=== PATIENT | male | born 1955 | race Caucasian/White ===

== ENCOUNTER 2018-06-30 11:10 | Outpatient (CLI) | payer MEDICARE ==
--- NOTE | 2018-06-30 13:48 | RAD ---
TWO VIEWS OF THE THORACIC SPINE: DATE: 06/30/18. COMPARISON: None. HISTORY: Assess for metallic foreign body. FINDINGS: The mid and lower thoracic spine as well as the upper lumbar spine regions are assessed with frontal and lateral imaging. No metallic foreign body is seen from the level of the L4 vertebral body throug h the level of the T4 vertebral body. There is multilevel degenerative change noted. IMPRESSION: No metallic foreign body is seen within the region of the mid and distal thoracic spine. POS: MATTIE
--- NOTE | 2018-06-30 15:17 | MRI ---
MRI OF LEFT ELBOW PERFORMED WITHOUT CONTRAST ENHANCEMENT: History Left elbow pain since a fall in early June. The triceps tendon is intact. There is a high-grade non-retracted tear of the biceps tendon. The distal biceps tendon has a bifurc ated appearance. The long head of the biceps tendon distally appears almost completely torn. There are a few short head fibers that still attaching distally. There is no retraction of the tendon and the lacertus fibrosis appears intact. There is some edema change of the radial tuberosity associated with these findings. There is also appearance of tendinopathy changes of the fibers of the long hea d of the biceps. The ulnar collateral ligament is intact. The lateral collateral ligamentous complex appears intact. There is some tendinopathy change of the common extensor tendon. The common flexor tendon appears u nremarkable. There is a small joint effusion. There are some arthritic changes of the elbow. There appears to be a small articular body best seen on axial image 3. It measures 6-7 mm in maximum size. IMPRESSION: 1. Very high-grade essentially complete tear of the biceps tendon. There are a few fibers of the sh ort head that still appear to be intact and perhaps a few fibers of the tendinopathic long head bicep s tendon are still intact. There is no retraction and the lacertus fibrosis appears intact. There a re some edema changes of the radial tuberosity associated with this. 2. Some arthritic changes of the elbow incidentally noted. Small joint effusion and a small articul ar body measuring 6-7 mm. POS: [facility]
== END 2018-06-30 11:11 | disposition home or self-care (01) ==
LOC: SCSMRI 11:10
PROVIDERS: ATTEND Orthopaedic Surgery
DX: M25.522 Pain in left elbow (principal); S46.212A Strain of muscle, fascia and tendon of other parts of biceps, left arm, initial encounter; R60.0 Localized edema; M25.422 Effusion, left elbow
CPT/HCPCS: 72070

== ENCOUNTER 2018-07-25 11:52 | Outpatient (CLI) | payer MEDICARE ==
[2018-07-25 13:15] LABS: Hemoglobin 14.7 g/dL (14.0-18.0); Mean Corpuscular HGB CONC 33.7 g/dL (32.0-36.0); Mean Corpuscular Hemoglobin 35.1 pg (27.0-31.0); Mean Platelet Volume 7.3 fL (7.4-10.4); Platelet Count 144 thou/uL (130-400); RBC Distribution Width 12.9 % (11.5-14.5); Red Blood Cell (RBC) Count 4.19 mill/uL (4.70-6.10); White Blood Cell (WBC) Count 7.2 thou/uL (4.8-10.8)
== END 2018-07-25 11:53 | disposition home or self-care (01) ==
LOC: LABBT 11:52
PROVIDERS: ATTEND Orthopaedic Surgery
DX: Z01.812 Encounter for preprocedural laboratory examination (principal); S46.212A Strain of muscle, fascia and tendon of other parts of biceps, left arm, initial encounter
CPT/HCPCS: 85027

== ENCOUNTER 2018-07-26 07:07 | Day surgery (SDC) | payer MEDICARE ==
[2018-07-25 12:13] VITALS: BMI 27.8
[2018-07-26] MEDS ORDERED: Lidocaine 1% (PF) 30 ML VIAL ONE (07:58)
[2018-07-26] MEDS ORDERED: Fentanyl 100 MCG/2 ML VIAL ONE ×2 (08:10→11:47)
[2018-07-26] MEDS ORDERED: Midazolam HCl 2 mg/2 ml Vial ONE ×2 (08:10→08:56)
[2018-07-26] MEDS ORDERED: Clindamycin/D5W 900 mg/50 ml Premix Bag ONE (08:22)
[2018-07-26] MEDS ORDERED: Levofloxacin 500 mg/D5W 100 ml Premix Bag ONE (08:22)
[2018-07-26] MEDS ORDERED: Lidocaine 1% w/Epinephrine 1:100K 30 ML VIAL ONE (09:45)
--- NOTE | 2018-07-26 12:09 | RAD ---
LEFT FOREARM TWO VIEWS: 07/26/2018 PROVIDED CLINICAL HISTORY: Biceps repair. FINDINGS: Frontal images of the proximal left forearm demonstrate postoperative changes, compatible with biceps tendon repair, at the level of the radial tuberosity. IMPRESSION: As above. POS: MATTIE
[2018-07-26] MEDS ORDERED: HYDROcodone/Acetaminophen 5/325 mg Tablet ONE (12:35)
--- NOTE | 2018-07-26 13:51 | OP ---
DATE OF PROCEDURE: 07/26/2018 PREOPERATIVE DIAGNOSIS: High grade tear distal biceps. POSTOPERATIVE DIAGNOSIS: High grade tear distal biceps. PROCEDURE PERFORMED: Left distal biceps repair. STAFF: Max Marrero M.D. CAKE FROSTER: None. ANESTHESIA: Roget. The patient received a LMA with 10 mL of 1% lidocaine with epinephrine. ESTIMATED BLOOD LOSS: 10 mL. TOURNIQUET TIME: 49 minutes at 250 mmHg. ANTIBIOTICS: Clindamycin 900, Levaquin 500. IMPLANTS: An [employer] TightRope distal biceps repair kit. COMPLICATIONS: A 1 cm skin tear. HISTORY OF PRESENT ILLNESS: Mr. Castellanos is a 63-year-old male with multiple medical problems to include smoking, visual impairment, COPD. The patient had a left distal biceps rupture while falling. The patient had MRI evidence showing distal biceps tendon rupture. I discussed with him conservative management versus operative intervention. The patient desired for operative intervention. I discussed with him the risks and benefits of surgery to include pain, scar, bleeding, infection, damage to vital structures, decreased range of motion or strength, failure of repair, fracture, need for further surgeries, paresthesias from the lateral antebrachial cutaneous nerve. I discussed with him wound complications and failure of procedure. He understood the risks and benefits and elected to proceed. PROCEDURE IN DETAIL: Timeout was performed designating the patient's left upper extremity as the operative site based on site, consents and markings. After completion of timeout, the patient's left upper extremity was prepped and draped in sterile fashion. Tourniquet was brought up for 49 minutes. I made an incision just off the ulnar border of the brachialis and linearly just right distal flexor crease biceps could be palpated down. I dissected with skin scissors, came upon a vein in the cubital fossa which I cauterized. I then found the brachialis, tracked the biceps down, carried down to Mindy which was going to obstruct our view. Therefore, I tagged, I tied both sides and cauterized and then cut both segments. I came down on the patient's distal biceps. You could see the high grade tear of his biceps. I completed the rupture of the tendon. I then exposed the patient's radial tuberosity. I placed Homans' on both sides exposed the tuberosity. I then went back to the biceps, cleaned it up, used our #2 FiberWire running in a braded fashion [place] stitch from proximal to distal passing with a free needle, the distal ends. I then passed it through our TightRope and moved back to the radial tuberosity. I took x-rays to show position of the tuberosity, drilled bicortically and measured a 7 and took a 7 mm hole, cleaned and washed out the position and passed my TightRope through the opposite cortex, pulled the suture in the tendon to place, placed about 30-40 degrees of flexion, sure that I pulled it into place, passed with a free needle, the suture back through the tendon. I then pulled 1 more time and saw that it was flush within my tendon hole. I then tied the knot and cut after 6/7 passes, I then let the tourniquet down after 49 minutes. I controlled bleeding. There was no excessive bleeding. I then washed, closed with 2-0 Vicryl and 3-0 nylon. There was a noted little small skin tag which was torn, I assume from traction, which we did close with 4 -0 nylon, it was 1 cm in length. We then cleaned the patient's arm up and placed in a soft tissue dressing and sling. The patient will be followed up in 2 weeks. He will move his fingers, remain in the sling until I see him back in 2 weeks, allowing the skin to heal. I am concerned about the patient's skin given bruising already forming just after closure. BRIANA
[2018-07-26] MEDS ORDERED: Lidocaine 1% PF 5 ML VIAL ONE (17:01)
[2018-07-26] MEDS ORDERED: ePHEDrine/0.9% NaCl/PF SYRINGE 50 mg/10 ml ONE (17:01)
[2018-07-26] MEDS ORDERED: PROPOFOL 200 MG/20 ML VIAL ONE (17:01)
[2018-07-26] MEDS ORDERED: Ondansetron HCl/PF 4 MG/2 ML Vial ONE (17:01)
== END 2018-07-26 13:30 | disposition home or self-care (01) ==
LOC: SDC 07:07
PROVIDERS: ATTEND Orthopaedic Surgery
PROC: 0KQ80ZZ Repair Left Upper Arm Muscle, Open Approach (ICD-10-PCS; principal; 2018-07-26)
DX: S46.212A Strain of muscle, fascia and tendon of other parts of biceps, left arm, initial encounter (principal); F17.210 Nicotine dependence, cigarettes, uncomplicated; I25.10 Atherosclerotic heart disease of native coronary artery without angina pectoris; I10 Essential (primary) hypertension; K21.9 Gastro-esophageal reflux disease without esophagitis; J44.9 Chronic obstructive pulmonary disease, unspecified; F10.10 Alcohol abuse, uncomplicated; Z79.82 Long term (current) use of aspirin; Z79.899 Other long term (current) drug therapy; Z88.0 Allergy status to penicillin; Z88.2 Allergy status to sulfonamides; Z88.8 Allergy status to other drugs, medicaments and biological substances; Z95.5 Presence of coronary angioplasty implant and graft; W19.XXXA Unspecified fall, initial encounter
CPT/HCPCS: 76001; 96374; C1713; J1956; J2001; J2250; J2405; J2704; J3010; J3490

== ENCOUNTER 2018-12-19 20:47 | Emergency (ER) | payer MEDICARE | END 2018-12-19 22:22 | disposition left against medical advice (07) | LOC: ERS 20:47 | DX: Z53.21 Procedure and treatment not carried out due to patient leaving prior to being seen by health care provider (principal) ==

== ENCOUNTER 2019-05-30 10:00 | Outpatient (CLI) | payer MEDICARE ==
--- NOTE | 2019-05-30 11:29 | CT ---
EXAM: NONCONTRAST CT PULMONARY LUNG SCAN PROVIDED CLINICAL HISTORY: Nicotine dependence COMPARISON: 06/07/2006 FINDINGS: No pulmonary nodule, mass, or pleural effusion is seen. There is a small approximately 6 mm pulmonary nodule in the posterior aspect distal trachea just abov e the level of the marty which is of uncertain etiology. This could potential representing a tiny nodule. Secretions in this region is a possibility. No additional filling defects or nodules are seen along the course of the trachea or visualized bronchi. Vascular calcifications are seen in the coronary arteries and to a lesser extent involving the thorac ic and visualized upper abdominal aorta. Lack of intravenous contrast limits evaluation of the mediastinal structures, but no enlarged lymph n odes are seen. Visualized upper abdomen demonstrates a grossly normal nonenhanced CT appearance. No lytic or sclerotic osseous lesions are seen. There are mild scattered degenerative changes in the thoracic spine. IMPRESSION: 1. Lung RADS category S - Nodular density seen in the most distal posterior trachea just above the le nurys of the marty measuring 6 mm. A lesion in this region cannot be entirely excluded. Bronchoscopy may be helpful for further evaluation versus short interval follow-up exam. 2. Lung RADS category 1-negative. Continue annual screening with low-dose CT scan thorax in 12 months .
== END 2019-05-30 10:01 | disposition home or self-care (01) ==
LOC: CT 10:00
PROVIDERS: ATTEND Family Medicine
DX: F17.210 Nicotine dependence, cigarettes, uncomplicated (principal)
CPT/HCPCS: G0297

== ENCOUNTER 2019-07-14 08:38 | Outpatient (CLI) | payer MEDICARE ==
--- NOTE | 2019-07-14 11:54 | RAD ---
PA AND LATERAL CHEST: HISTORY: Dyspnea. FINDINGS: Heart size is within normal limits. There are atherosclerotic changes of the aorta. There are radio graphic changes suggesting element of COPD. IMPRESSION: Chronic obstructive pulmonary disease change. Stable exam as compared to a 05/04/2017 study. POS: [facility]
== END 2019-07-14 08:39 | disposition home or self-care (01) ==
LOC: RAD 08:38
PROVIDERS: ATTEND Internal Medicine Critical Care Medicine
DX: R06.00 Dyspnea, unspecified (principal); J44.9 Chronic obstructive pulmonary disease, unspecified
CPT/HCPCS: 71046

== ENCOUNTER 2019-11-27 09:05 | Outpatient (CLI) | payer MEDICARE ==
--- NOTE | 2019-11-27 10:25 | ULT ---
EXAM: US Hepatic Doppler PROVIDED CLINICAL HISTORY: Chronic alcoholic liver disease COMPARISON: None FINDINGS: Proximal abdominal aorta is obscured by bowel gas. The visualized mid abdominal aorta is normal in ca liber with small amount of atherosclerotic plaque present. There is mobile echogenic material seen in the gallbladder lumen suggesting small amount of sludge. N o gallbladder calculus is seen, and there is no gallbladder wall thickening. Common duct is normal in caliber measuring 0.3 cm in diameter. The spleen is normal in size. The liver is enlarged in craniocaudal dimensions measuring approximatel y 19 cm. Visualized portions of the IVC demonstrate a normal sonographic appearance. Hepatic Doppler evaluation with spectral analysis and color flow evaluation: There is normal directional flow seen within the splenic, hepatic, and portal veins. Arterial wavefor ms are documented within the hepatic and splenic arteries. IMPRESSION: 1. Normal directional flow seen within the hepatic, splenic, and portal veins. 2. Liver mildly enlarged measuring 19 cm in craniocaudal dimensions. The spleen is normal in size. 3. Small amount of gallbladder sludge.
== END 2019-11-27 09:06 | disposition home or self-care (01) ==
LOC: SCSULT 09:05
PROVIDERS: ATTEND Internal Medicine Gastroenterology
DX: K70.9 Alcoholic liver disease, unspecified (principal); R94.5 Abnormal results of liver function studies; R63.4 Abnormal weight loss; K82.8 Other specified diseases of gallbladder; R16.0 Hepatomegaly, not elsewhere classified
CPT/HCPCS: 76705

== ENCOUNTER 2020-08-21 15:03 | Outpatient (CLI) | payer MEDICARE ==
[2020-08-21 20:27] LABS: ALT (SGPT) 13 U/L (8-55); AST (SGOT) 17 U/L (5-34); Albumin 4.1 g/dL (3.4-4.8); Alkaline Phosphatase 184 U/L (40-110); Anion Gap 24 mmol/L (10-20); BUN (Urea Nitrogen) 18 mg/dL (8.4-25.7); Bilirubin, Total 0.5 mg/dL (0.2-1.2); Calc. Creatinine Clearance 0 mL/min (70-130); Calcium 9.8 mg/dL (7.8-10.44); Carbon Dioxide 19 mmol/L (23-31); Chloride 96 mmol/L (98-107); Estimated GFR-MDRD 48; Globulin 3.6 g/dL (2.4-3.5); Glucose 104 mg/dL (80-115); Potassium 4.6 mmol/L (3.5-5.1); Protein, Total 7.7 g/dL (5.8-8.1); Sodium 134 mmol/L (136-145)
[2020-08-21 20:30] LABS: #Eosinphils 0.1 10x3/uL (0.0-0.5); #Monocytes 0.7 10x3/uL (0.0-1.1); %Basophils 0.3 % (0.0-2.0); %Eosinophils 0.8 % (0.0-6.0); %Lymphocytes 15.9 % (18.0-47.0); %Monocytes 5.8 % (0.0-10.0); %Neutrophils 76.5 % (40.0-75.0); Hemoglobin 14.3 g/dL (14.0-18.0); Mean Corpuscular HGB CONC 33.8 G/DL (32.0-36.0); Mean Corpuscular Hemoglobin 34.5 PG (27.0-33.0); Mean Corpuscular Volume 101.9 fl (80.0-100.0); Mean Platelet Volume 10.8 fl (7.4-10.4); Platelet Count 348 10x3/uL (130-400); RBC Distribution Width 12.5 % (11.5-14.5); Red Blood Cell (RBC) Count 4.15 10x6/uL (4.40-5.80); White Blood Cell (WBC) Count 11.8 10x3/uL (4.5-11.0)
[2020-08-22 12:12] LABS: SARS-CoV-2 MS2 Positive; SARS-CoV-2 N Gene Negative; SARS-CoV-2 S Gene Negative; SARS-CoV-2 by NAA Not Detected (NotDetected); SARS-CoV-2 orf1ab Negative
== END 2020-08-21 15:04 | disposition home or self-care (01) ==
LOC: LABBT 15:03
PROVIDERS: ATTEND Internal Medicine Cardiovascular Disease
DX: Z01.812 Encounter for preprocedural laboratory examination (principal); Z20.828 Contact with and (suspected) exposure to other viral communicable diseases
CPT/HCPCS: 80053; 85025; U0003; 87635

== ENCOUNTER 2020-08-26 07:07 | Day surgery (SDC) | payer MEDICARE ==
[2020-08-23 12:13] VITALS: BMI 24.0
[2020-08-26] MEDS ORDERED: Midazolam HCl 2 mg/2 ml Vial ONE (11:14)
[2020-08-26] MEDS ORDERED: Fentanyl 100 MCG/2 ML VIAL ONE (11:14)
[2020-08-26] MEDS ORDERED: Heparin 10,000 UNITS/ 10 ML VIAL ONE (11:32)
[2020-08-26] MEDS ORDERED: Iopamidol 370 76% 100 ML VIAL ONE (15:07)
== END 2020-08-26 16:30 | disposition home or self-care (01) ==
LOC: CCL 07:07
PROVIDERS: ATTEND Internal Medicine Cardiovascular Disease
PROC: 4A023N7 Measurement of Cardiac Sampling and Pressure, Left Heart, Percutaneous Approach (ICD-10-PCS; principal; 2020-08-26)
PROC: B2111ZZ Fluoroscopy of Multiple Coronary Arteries using Low Osmolar Contrast (ICD-10-PCS; 2020-08-26)
DX: I25.10 Atherosclerotic heart disease of native coronary artery without angina pectoris (principal); I47.2 Ventricular tachycardia; I25.2 Old myocardial infarction; J44.9 Chronic obstructive pulmonary disease, unspecified; H54.7 Unspecified visual loss; F17.210 Nicotine dependence, cigarettes, uncomplicated; Z79.899 Other long term (current) drug therapy; Z79.82 Long term (current) use of aspirin; Z88.0 Allergy status to penicillin; Z88.2 Allergy status to sulfonamides
CPT/HCPCS: 76942; 85347; 93458; 99152; C1769; J1644; J2250; J3010; Q9967

== ENCOUNTER 2020-09-12 14:38 | Inpatient (IN) | payer MEDICARE ==
[2020-09-12] MEDS ORDERED: Calcium Carbonate 500 MG ChewTAB PO PRN (16:00)
[2020-09-12] MEDS ORDERED: Fleet Enema 133 ML BOT PR PRN (16:00)
[2020-09-12] MEDS ORDERED: Mag-Al 1200 mg/1200 mg/30 ML UDCUP PO PRN (16:00)
[2020-09-12] MEDS ORDERED: Ondansetron PF 4 MG/2 ML Vial SLOW IVP PRN (16:00)
[2020-09-12] MEDS ORDERED: Acetaminophen 325 MG TAB PO PRN (16:00)
[2020-09-12] MEDS ORDERED: HYDROcodone/Acetaminophen 5/325 mg Tablet PO PRN (16:00)
[2020-09-12 17:10] VITALS: BMI 23.7
[2020-09-12] MEDS: Sodium Chloride 0.9% 1,000 ML IV SCH (17:13)
[2020-09-12 23:19] LABS: SARS-CoV-2 MS2 Positive; SARS-CoV-2 N Gene Negative; SARS-CoV-2 S Gene Negative; SARS-CoV-2 by NAA Not Detected (NotDetected); SARS-CoV-2 orf1ab Negative
[2020-09-13] MEDS: Sodium Chloride 0.9% 1,000 ML IV SCH ×3 (01:51→19:56)
[2020-09-13 04:16] LABS: #Eosinphils 0.1 thou/uL (0.0-0.7); #Lymphocytes 1.1 thou/uL (1.20-3.40); #Monocytes 0.9 thou/uL (0.11-0.59); #Neutrophils 9.5 thou/uL (1.40-6.50); %Basophils 0.3 % (0.0-1.0); %Eosinophils 1.1 % (0.0-10.0); %Lymphocytes 9.5 % (21.0-51.0); %Monocytes 7.8 % (0.0-10.0); %Neutrophils 81.3 % (42.0-75.0); Hemoglobin 10.3 g/dL (14.0-18.0); Mean Corpuscular HGB CONC 33.9 g/dL (32.0-36.0); Mean Corpuscular Hemoglobin 35.8 pg (27.0-31.0); Mean Platelet Volume 6.1 fL (7.4-10.4); Platelet Count 207 thou/uL (130-400); RBC Distribution Width 13.6 % (11.5-14.5); Red Blood Cell (RBC) Count 2.88 mill/uL (4.70-6.10); White Blood Cell (WBC) Count 11.7 thou/uL (4.8-10.8)
[2020-09-13 04:39] LABS: ALT (SGPT) 8 U/L (8-55); AST (SGOT) 18 U/L (5-34); Albumin 2.8 g/dL (3.4-4.8); Alkaline Phosphatase 146 U/L (40-110); Anion Gap 11 mmol/L (10-20); BUN (Urea Nitrogen) 7 mg/dL (8.4-25.7); Bilirubin, Total 0.6 mg/dL (0.2-1.2); Calc. Creatinine Clearance 103 mL/min (70-130); Calcium 8.5 mg/dL (7.8-10.44); Carbon Dioxide 24 mmol/L (23-31); Chloride 98 mmol/L (98-107); Glucose 115 mg/dL (80-115); Protein, Total 5.8 g/dL (5.8-8.1); Sodium 129 mmol/L (136-145)
[2020-09-13] MEDS: HYDROcodone/Acetaminophen 5/325 mg Tablet PO PRN ×2 (04:55→19:56)
[2020-09-13] MEDS ORDERED: Midazolam HCl 2 mg/2 ml Vial ONE (08:17)
[2020-09-13] MEDS ORDERED: Heparin 10,000 UNITS/ 10 ML VIAL ONE (08:53)
[2020-09-13] MEDS ORDERED: Fentanyl 100 MCG/2 ML VIAL ONE ×4 (08:54→17:11)
[2020-09-13] MEDS: Oxybutynin ER 5 MG TAB PO SCH (09:00)
[2020-09-13] MEDS: Bupropion 150 MG XL TAB PO SCH (09:00)
[2020-09-13] MEDS: Metoprolol Tartrate 100 MG TAB PO SCH (09:00)
[2020-09-13] MEDS: Aspirin Chewable 81 MG TAB PO SCH (09:00)
[2020-09-13] MEDS ORDERED: Protamine Sulfate 50 MG/5 ML VIAL ONE (09:24)
[2020-09-13] MEDS ORDERED: Dexamethasone 20 MG/5 ML VIAL ONE (10:32)
[2020-09-13] MEDS ORDERED: PHENYLEPHRINE-NS 100 MCG/ML 10 ML SYRINGE ONE (10:32)
[2020-09-13] MEDS ORDERED: Ondansetron PF 4 MG/2 ML Vial ONE (10:32)
[2020-09-13] MEDS ORDERED: PROPOFOL 200 MG/20 ML VIAL ONE (10:32)
[2020-09-13] MEDS ORDERED: Lidocaine 1% PF 5 ML VIAL ONE (10:32)
[2020-09-13] MEDS ORDERED: hydrALAZINE 20 MG/ML VIAL ONE (13:12)
[2020-09-13] MEDS ORDERED: Iopamidol 370 76% 100 ML VIAL ONE (13:35)
[2020-09-13] MEDS ORDERED: Iopamidol 370 76% 50 ML VIAL FS ONE (13:35)
[2020-09-13] MEDS: Fentanyl 100 MCG/2 ML VIAL SLOW IVP PRN ×2 (14:15→15:15)
[2020-09-13] MEDS ORDERED: Bupivacaine 0.25% HCL 30 ML VIAL ONE (15:45)
[2020-09-13] MEDS ORDERED: Lidocaine 1% w/Epinephrine 1:100K 20 ML VIAL ONE ×2 (15:45→17:06)
[2020-09-13] MEDS ORDERED: Bacitracin Zinc Ointment 30 gm TUBE ONE (15:45)
[2020-09-13] MEDS ORDERED: Levofloxacin 500 mg/D5W 100 ml Premix Bag ONE (15:49)
--- NOTE | 2020-09-13 16:15 | EKG ---
Test Reason : POST RUNOFF Blood Pressure : / mmHG Vent. Rate : 068 BPM Atrial Rate : 068 BPM P-R Int : 146 ms QRS Dur : 092 ms QT Int : 412 ms P-R-T Axes : 065 090 057 degrees QTc Int : 438 ms Normal sinus rhythm Rightward axis Borderline ECG No previous ECGs available Confirmed by DR. Jeff HYMAN (3) on 09/13/2020 4:15:21 PM Referred By: GABRIELE Confirmed By:DR. Jeff HYMAN
--- NOTE | 2020-09-13 16:18 | OP ---
DATE OF PROCEDURE: 09/13/2020 PREPROCEDURE DIAGNOSIS: Nonhealing ulcer. POSTPROCEDURE DIAGNOSIS: Severe PVD. PROCEDURES PERFORMED: 1. Aortogram. 2. Bilateral aortofemoral runoff. 3. Successful DESIGN PAINTER only to the proximal to distal region of an occluded SFA. COMPLICATIONS: None. ESTIMATED BLOOD LOSS: Less than 20 mL. DESCRIPTION OF PROCEDURE: The patient was admitted one day prior to the procedure for hydration. The patient was consented for procedure. I discussed the procedure in full detail with Mr. Castellanos. Risks include, but not limited to the following: , stroke, [place], need for emergency surgery, loss of limb, bleeding, infection, as well as reaction to the medication. All questions were answered given the above. The patient agreed to proceed with above procedure. DETAILS: The patient was draped and prepped in sterile fashion. Access was obtained in the left femoral artery under ultrasound guidance. Micropuncture sheath was employed. A 4-Malagasy Contra catheter was used for aortogram and placed into the contralateral segment successfully. FINDINGS: The aorta has no significant stenosis or aneurysm. Right lower extremity - common iliac, external iliac, and common femoral artery have no significant disease. The SFA had a near ostial occlusion. The reconstitutes in the proximal portion of the popliteal artery just past the adductor canal. There appears to be 2-vessel runoff to the foot with significant disease present. Left lower extremity - common iliac, external iliac, common femoral artery have no significant disease. The SFA has less than 50% stenosis with heavy calcification. The 5-Malagasy sheath was exchanged for a 6-Malagasy destination sheath. This was placed in the contralateral segment successfully. A heparin was used for anticoagulation. A Frontrunner device was used initially due to a blunt near ostial occlusion. Surprisingly, this passed successfully with minimal manipulation into the popliteal artery. This was confirmed. A Wholey wire was then exchanged after the removal of the Frontrunner. Wholey wire was placed through the [place] catheter. Multiple inflations with a 4 x 150 mm balloon catheter were performed. There was suboptimal result especially in the proximal region. A 5 x 200 mm balloon catheter was then inflated x2 with much improvement in flow at present. I did want to avoid stent implantation due to the proximity to the ostium of the profunda femoral artery, in addition to low-grade fever of 99.7 as well as poor distal runoff. I did feel the flow present was appropriate. The patient was transferred to PACU in stable condition. Job ID: [id number]
--- NOTE | 2020-09-13 16:19 | CON ---
DATE OF CONSULTATION: REASON FOR CONSULT: Right second toe gangrene. HISTORY OF PRESENT ILLNESS: Mr. Castellanos is a 65-year-old man with pain, swelling, and blackening of his right second toe with a small open wound. He has a history of severe peripheral arterial disease and has undergone angioplasty of both femoral arteries in the past but no longer has any palpable pulses in his feet. Dr. Wong took him to the angio lab today and performed another angioplasty of the right SFA obtaining normal runoff and Doppler signals in his feet. He has requested amputation of the gangrenous draining toe. PAST MEDICAL HISTORY: Coronary artery disease, status post stenting, COPD, hypertension, and peripheral vascular disease. PAST SURGICAL HISTORY: Bilateral angioplasty of the femoral vessels as well as coronary artery stenting. FAMILY HISTORY: Hypertension and gastric cancer. SOCIAL HISTORY: The patient continues to smoke daily. Drinks beer daily as well. No illicit drugs. ALLERGIES: HE REPORTS ALLERGIES TO PENICILLIN AND SULFA. OUTPATIENT MEDICATIONS: Include 1. Oxybutynin. 2. Multivitamin. 3. Prilosec. 4. Metoprolol. 5. Aspirin. 6. Bupropion. REVIEW OF SYSTEMS: 10 system review of systems is negative except per HPI and the following. The patient has chronic pain in his right second toe, which limits his activities. He does not report claudication and he is not very active. No respiratory symptoms, but again is not very active. He does have heaviness in his legs and swelling in the right toe and foot. No fevers or chills. PHYSICAL EXAMINATION: VITAL SIGNS: Per PCU record. GENERAL: Reveals a healthy-appearing man, in no acute distress, who appears older than his stated age. HEENT: Unremarkable. NECK: Supple without lymphadenopathy or thyroid nodules. HEART: Regular in its rate and rhythm without murmurs, rubs, or gallops. LUNGS: Clear to auscultation bilaterally. EXTREMITIES: He has a palpable right femoral pulse. I cannot definitely appreciate a popliteal pulse, but he has signals in both his posterior tibial and dorsalis pedis arteries and fairly brisk capillary refill of his toes. He has two small eschars of his first and third toes and his second toe is gangrenous down to the base. He has some bogginess of the tissues underlying the eschar near the base, although I am unable to express any drainage. He has had drainage from that area in the past. He has some redness of the foot near the base of the toe. No lymphangitic streaking. Mild edema of the right foot. NEUROLOGIC: No focal deficits. PSYCHIATRIC: Alert, oriented and appropriate. ASSESSMENT: Gangrene of the right second toe, status post revascularization. I have recommended right second toe amputation, leaving the wound open for dressing changes. Hopefully, he has adequate circulation to heal this. If he does not appear to be healing, I may get Vascular Surgery involved to see if he is a candidate for surgical bypass, but Dr. Wong felt that given his overall medical state, PTCA even though unlikely to remain patent for long was his best option at this time. The alternative is antibiotics and observation, but he is at risk for sepsis. This does not appear to be typical dry gangrene, although he is not obviously septic at this time. There is some bogginess and drainage from this eschar. He understands and wants to proceed with amputation. He understands that if he does not heal at this level, then a mid foot or even below-knee amputation may be necessary. Certainly, we will get Vascular Surgery involved before proceeding with any of those options however. The inherent risks of surgery were discussed with him and his . These include, but are not limited to, bleeding, infection, risks of anesthesia, failure to heal, and need for other procedures or amputation at a higher level. He understands and accepts these risks. All of his questions were answered and he has been posted for the operating room today. Job ID: [id number]
[2020-09-13] MEDS ORDERED: Promethazine HCl 25 MG/ML VIAL SLOW IVP PRN (17:06)
[2020-09-13] MEDS ORDERED: Ondansetron HCl/PF 4 MG/2 ML Vial IVP PRN (17:06)
[2020-09-13] MEDS ORDERED: Promethazine HCl 25 MG/ML VIAL IM PRN (17:06)
[2020-09-13] MEDS: Clindamycin/D5W 600 MG in Premix Bag 1 BAG IVPB SCH (21:28)
--- NOTE | 2020-09-13 23:43 | OP ---
DATE OF PROCEDURE: 09/13/2020 PROCEDURE PERFORMED: Right second toe ray amputation. PREOPERATIVE DIAGNOSIS: Wet gangrene of the right second toe. POSTOPERATIVE DIAGNOSIS: Wet gangrene of the right second toe. HISTORY OF PRESENT ILLNESS: Mr. Castellanos is a 65-year-old man with long-standing peripheral vascular disease. He presented to Dr. Wong's office with gangrene of the right second toe with some drainage from an ulceration on that same toe. He was admitted to the hospital and underwent angioplasty of the right SFA with presybeterian of flow through this vessel to the foot. It was then recommended that he undergo a right second toe amputation. DESCRIPTION OF PROCEDURE: After informed consent was obtained and appropriate preoperative antibiotics were administered, the patient was taken to the operating room. He was placed in supine position and general anesthesia was administered. He was prepped and draped in a standard sterile fashion and a digital block performed using Marcaine without epinephrine. A paddle-shaped incision was then made excising all of the necrotic tissue and dissection carried down to the proximal phalanx, which was divided using a rib shear. The base of the proximal phalanx was then resected at the level of the metatarsophalangeal joint and the proximal metatarsal head rongeured down to a smooth surface. There was some slightly discolored purulent fluid in the wound which was sent for Gram stain and culture. However, there was no odor and no expressible drainage from the deep tissues of the foot. The subcutaneous tissues were trimmed back to grossly viable appearing tissues. The skin incision was partially closed with interrupted horizontal mattress suture after the wound was copiously irrigated. The wound was then packed with normal saline moistened gauze and the foot wrapped with gauze and Kerlix. The patient was extubated and taken to Recovery in good condition. Estimated blood loss was minimal. There were no complications. SPECIMENS: Right second toe abscess for Gram stain and culture and right second toe for histopathology. Job ID: [id number]
[2020-09-14 04:24] LABS: #Lymphocytes 0.4 thou/uL (1.20-3.40); #Monocytes 0.4 thou/uL (0.11-0.59); #Neutrophils 8.7 thou/uL (1.40-6.50); %Monocytes 3.9 % (0.0-10.0); Hemoglobin 10.5 g/dL (14.0-18.0); Mean Corpuscular HGB CONC 33.1 g/dL (32.0-36.0); Mean Corpuscular Hemoglobin 35.7 pg (27.0-31.0); Mean Platelet Volume 6.8 fL (7.4-10.4); Platelet Count 174 thou/uL (130-400); RBC Distribution Width 13.7 % (11.5-14.5); Red Blood Cell (RBC) Count 2.95 mill/uL (4.70-6.10); White Blood Cell (WBC) Count 9.5 thou/uL (4.8-10.8)
[2020-09-14 04:43] LABS: ALT (SGPT) Less than 7 U/L (8-55); AST (SGOT) 15 U/L (5-34); Albumin 2.6 g/dL (3.4-4.8); Alkaline Phosphatase 130 U/L (40-110); Anion Gap 12 mmol/L (10-20); BUN (Urea Nitrogen) 8 mg/dL (8.4-25.7); Bilirubin, Total 0.4 mg/dL (0.2-1.2); Calc. Creatinine Clearance 110 mL/min (70-130); Calcium 8.1 mg/dL (7.8-10.44); Carbon Dioxide 19 mmol/L (23-31); Chloride 101 mmol/L (98-107); Globulin 3.1 g/dL (2.4-3.5); Glucose 137 mg/dL (80-115); Potassium 4.4 mmol/L (3.5-5.1); Protein, Total 5.7 g/dL (5.8-8.1); Sodium 128 mmol/L (136-145)
[2020-09-14] MEDS: HYDROcodone/Acetaminophen 5/325 mg Tablet PO PRN ×4 (05:27→19:18)
[2020-09-14] MEDS: Clindamycin/D5W 600 MG in Premix Bag 1 BAG IVPB SCH ×3 (05:27→22:36)
[2020-09-14] MEDS: Sodium Chloride 0.9% 1,000 ML IV SCH ×2 (05:27→18:59)
[2020-09-14] MEDS: Metoprolol Tartrate 100 MG TAB PO SCH (08:37)
[2020-09-14] MEDS: Oxybutynin ER 5 MG TAB PO SCH (08:37)
[2020-09-14] MEDS: Bupropion 150 MG XL TAB PO SCH (08:37)
[2020-09-14] MEDS: Saccharomyces boulardii 250 MG CAP PO SCH (08:37)
[2020-09-14] MEDS: Aspirin Chewable 81 MG TAB PO SCH (08:37)
[2020-09-15] MEDS: HYDROcodone/Acetaminophen 5/325 mg Tablet PO PRN ×5 (03:21→22:41)
[2020-09-15] MEDS: Sodium Chloride 0.9% 1,000 ML IV SCH ×3 (05:08→21:04)
[2020-09-15] MEDS: Clindamycin/D5W 600 MG in Premix Bag 1 BAG IVPB SCH (06:13)
[2020-09-15] MEDS: Aspirin Chewable 81 MG TAB PO SCH (09:59)
[2020-09-15] MEDS: Saccharomyces boulardii 250 MG CAP PO SCH (10:07)
[2020-09-15] MEDS: Oxybutynin ER 5 MG TAB PO SCH (10:07)
[2020-09-15] MEDS: Metoprolol Tartrate 100 MG TAB PO SCH (10:07)
[2020-09-15] MEDS: Bupropion 150 MG XL TAB PO SCH (10:07)
[2020-09-15] MEDS: Clindamycin 150 MG CAP PO SCH ×2 (15:04→21:02)
[2020-09-15] MEDS ORDERED: Atorvastatin Calcium 40 MG TAB PO SCH (21:00)
[2020-09-16] MEDS: Sodium Chloride 0.9% 1,000 ML IV SCH (02:29)
[2020-09-16] MEDS: HYDROcodone/Acetaminophen 5/325 mg Tablet PO PRN ×2 (02:59→07:29)
[2020-09-16] MEDS: Clindamycin 150 MG CAP PO SCH ×2 (06:09→15:19)
[2020-09-16] MEDS: Aspirin Chewable 81 MG TAB PO SCH (08:55)
[2020-09-16] MEDS: Bupropion 150 MG XL TAB PO SCH (08:55)
[2020-09-16] MEDS: Saccharomyces boulardii 250 MG CAP PO SCH (08:55)
[2020-09-16] MEDS: Metoprolol Tartrate 100 MG TAB PO SCH (08:55)
[2020-09-16] MEDS: Oxybutynin ER 5 MG TAB PO SCH (08:56)
[2020-09-16] MEDS ORDERED: cloNIDine 0.1 MG TAB PO SCH (09:00)
[2020-09-16 09:30] VITALS: BP 199/91; TEMP 97.5
[2020-09-16 11:15] LABS: Anion Gap 13 mmol/L (10-20); BUN (Urea Nitrogen) 6 mg/dL (8.4-25.7); Calc. Creatinine Clearance 113 mL/min (70-130); Calcium 8.3 mg/dL (7.8-10.44); Carbon Dioxide 22 mmol/L (23-31); Chloride 101 mmol/L (98-107); Glucose 116 mg/dL (80-115); Potassium 3.7 mmol/L (3.5-5.1); Sodium 132 mmol/L (136-145)
--- NOTE | 2020-09-16 11:18 | PDOC.GSPN ---
Surgery Progress Note: Subj - Subjective Narrative: Patient feels fine. Tolerating VAC dressing without problems. Small eschar in great toe is stable and the VAC dressing is intact. Minimal drainage in the canister. He is growing staph aureus and Proteus on his wound cultures. The staph aureus sensitivities are still pending but the Proteus is sensitive to levofloxacin. He is on clindamycin which should cover staph aureus. I would recommend he go home on these 2 antibiotics. I would like to see him back in my clinic in a couple weeks. Surgery Progress Note: Obj - Vital signs Vital signs: Vital Signs - Most Recent Temp Pulse Resp BP Pulse Ox 97.5 F L 75 18 148/68 H 98 09/16/20 08:00 09/16/20 08:00 09/16/20 08:00 09/16/20 08:55 09/16/20 08:00 Surgery Progress Note: Results - Labs Result Diagrams: 09/14/20 03:52 09/16/20 10:32 Lab results: Laboratory Results - last 12 hr 09/16/20 10:32 Sodium 132 L Potassium 3.7 Chloride 101 Carbon Dioxide 22 L Anion Gap 13 BUN 6 L Creatinine 0.73 Estimated GFR (MDRD) Greater than 90 Glucose 116 H Calcium 8.3
--- NOTE | 2020-09-16 16:31 | EKG ---
Test Reason : RT Blood Pressure : / mmHG Vent. Rate : 067 BPM Atrial Rate : 067 BPM P-R Int : 144 ms QRS Dur : 088 ms QT Int : 410 ms P-R-T Axes : 050 076 048 degrees QTc Int : 433 ms Normal sinus rhythm Low voltage QRS marked suggest repeat EKG minimal nsst changes Confirmed by DR. Jeff HYMAN (3) on 09/16/2020 4:31:04 PM Referred By: MARCUS Confirmed By:DR. Jeff HYMAN
--- NOTE | 2020-09-16 17:09 | DIS ---
DATE OF ADMISSION: 09/13/2020 DATE OF DISCHARGE: 09/16/2020 DISCHARGE DIAGNOSIS: Severe peripheral vascular disease. PROCEDURES: 1. Aortofemoral runoff number. 2. Successful EARTH SCIENCE LABORATORY TECHNICIAN only to the right SFA. 3. Toe amputation on right of second toe. CONSULTATIONS: General Surgery. HOSPITAL COURSE: Mr. Castellanos is a very pleasant 65-year-old gentleman who was seen and evaluated in the past. He presented to my office with a new wound. This occurred one month prior to presentation where he fell. After his fall, he developed a wound that did not heal. Upon arrival to my office, the wound appeared to be necrotic with wet gangrene. He was subsequently admitted to the hospital for IV fluids and observation. He underwent aortofemoral runoff on 09/13/2020. He did have revascularization of the left SFA. He underwent EARTH SCIENCE LABORATORY TECHNICIAN only. He did have a dissection present in the proximal region that I deferred on placing a stent due to poor runoff in close proximity to the ostium of the profunda femoral artery. General Surgery was consulted. He underwent a successful amputation on 09/13/2020. He was placed on antibiotics over the weekend and the wound VAC placed. Home health was set up. He was discharged on 09/16/2020 in stable condition. DISCHARGE MEDICATIONS: Include, 1. Prilosec 10 mg daily. 2. Metoprolol 100 mg q.a.m. 3. Bupropion 150 q.a.m. 4. Lisinopril 10 daily. 5. Multivitamin. 6. Oxybutynin. 7. Symbicort as prescribed. 8. Aspirin 81 q.a.m. 9. Clindamycin 300 q.8 hours. 10. Levofloxacin 500 p.o. q.p.m. x10 days. 11. Atorvastatin 40 mg daily. 12. Hydrocodone 1 tab q.6 hours p.r.n. CONDITION AT DISCHARGE: Stable. FOLLOWUP: Follow up with Flaquita Oakes PA-C, in 2 weeks. Job ID: [id number]
[2020-09-16] MEDS ORDERED: Lisinopril 10 MG TAB PO SCH (21:00)
--- NOTE | 2020-09-18 09:07 | PQF ---
CLINICAL DOCUMENTATION CLARIFICATION FORM: Dear : Jared Wong Date / Time: 09/18/2020 Please exercise your independent, professional judgment in responding to the clarification form. Clinical indicators are provided on the bottom of this form for your review Please check appropriate box(es): [ ] Hyponatremia [ ] Insignificant lab value [ ] Other diagnosis [ ] Unable to determine In addition, please specify: Present on Admission (POA): [ ] Yes [ ] No [ ] Unable to determine To be completed by CDI/Coding staff for physician review: Present Clinical Indicators - Signs / Symptoms / Labs Results and Location in Medical Record [ x ] Sodium was 129 on 09/13, 128 on 09/14 [email or web address] on 09/16 Laboratory Present Risk Factors Results and Location in Medical Record [ x ] INSPECTOR WATCH PARTS of right SFA, right second toe amputation Discharge summary Present Treatments Results and Location in Medical Record [ x ] IV fluids 09/13-09/16 Medications CDS/Resident Inspector Signature: [id number] Phone #: Date/Time: 09/18/2020 This is a permanent part of the Medical Record [facility]
== END 2020-09-16 15:40 | disposition home or self-care (01) | DRG 254 ==
LOC: SDC 14:38 → ONC 14:42 → OBSVTOIN 09-13 12:12
PROVIDERS: ADMIT Internal Medicine Cardiovascular Disease; ATTEND Internal Medicine Cardiovascular Disease
PROC: 047K3ZZ Dilation of Right Femoral Artery, Percutaneous Approach (ICD-10-PCS; principal; 2020-09-13)
PROC: 0Y6R0Z0 Detachment at Right 2nd Toe, Complete, Open Approach (ICD-10-PCS; 2020-09-13)
PROC: B41D1ZZ Fluoroscopy of Aorta and Bilateral Lower Extremity Arteries using Low Osmolar Contrast (ICD-10-PCS; 2020-09-13)
DX: I70.261 Atherosclerosis of native arteries of extremities with gangrene, right leg (principal); Z20.828 Contact with and (suspected) exposure to other viral communicable diseases; F10.10 Alcohol abuse, uncomplicated; J44.9 Chronic obstructive pulmonary disease, unspecified; I25.10 Atherosclerotic heart disease of native coronary artery without angina pectoris; I10 Essential (primary) hypertension; F17.200 Nicotine dependence, unspecified, uncomplicated; I25.2 Old myocardial infarction; Z88.0 Allergy status to penicillin; Z88.2 Allergy status to sulfonamides; Z88.8 Allergy status to other drugs, medicaments and biological substances; Z95.5 Presence of coronary angioplasty implant and graft
CPT/HCPCS: 36247; 36415; 37224; 75716; 76942; 80048; 80053; 80061; 85025; 85347; 87070; 87076; 87077; 87186; 87205; 87635; 88305; 93005; 93010; 99152; 99153; C1725; C1874; G0378; J0360; J1100; J1644; J1956; J2250; J2405; J2704; J2720; J3010; J3490; Q9967; S0020; U0003

== ENCOUNTER 2020-09-19 03:29 | Emergency (ER) | payer MEDICARE ==
[2020-09-19 04:37] LABS: Bilirubin Negative (Negative); Blood, Urine Negative (Negative); Clarity Clear (Clear); Glucose, Urine (Dipstick) Normal (Negative); Ketone, Urine Negative (Negative); Leukocyte Negative Leu/uL (Negative); Nitrite Negative (Negative); Protein, Urine (Dipstick) Negative (Neg-Trace); Specific Gravity, Urine 1.009 (1.002-1.036); Urobilinogen Normal mg/dL (Less than 2)
[2020-09-19 04:56] LABS: Anion Gap 14 mmol/L (10-20); BUN (Urea Nitrogen) 9 mg/dL (8.4-25.7); Calc. Creatinine Clearance 0 mL/min (70-130); Carbon Dioxide 23 mmol/L (23-31); Chloride 96 mmol/L (98-107); Glucose 99 mg/dL (80-115); Potassium 3.5 mmol/L (3.5-5.1); Sodium 129 mmol/L (136-145)
== END 2020-09-19 05:40 | disposition home or self-care (01) ==
LOC: ERS 03:29
DX: R33.9 Retention of urine, unspecified (principal); I25.10 Atherosclerotic heart disease of native coronary artery without angina pectoris; K21.9 Gastro-esophageal reflux disease without esophagitis; I10 Essential (primary) hypertension; J43.9 Emphysema, unspecified; F17.210 Nicotine dependence, cigarettes, uncomplicated
CPT/HCPCS: 36415; 51702; 80048; 81003; 87086

== ENCOUNTER 2020-09-24 10:45 | Inpatient (IN) | payer MEDICARE ==
--- NOTE | 2020-09-24 11:20 | RAD ---
XR Pelvis AP STANDARD History: Fall Comparison: None. Findings: Intertrochanteric fracture right femur with mild varus angulation. Dense vascular calcifica tions. Impression: Intertrochanteric fracture right femur.
--- NOTE | 2020-09-24 11:20 | RAD ---
XR Hip Rt 2-3 View History: Trauma. Fall Comparison: None. Findings: Intertrochanteric fracture right femur with mild varus angulation and foreshortening. Impression: Intertrochanteric fracture right femur.
[2020-09-24 12:12] LABS: #Eosinphils 0.1 thou/uL (0.0-0.7); #Lymphocytes 1.2 thou/uL (1.20-3.40); #Monocytes 0.8 thou/uL (0.11-0.59); #Neutrophils 15.3 thou/uL (1.40-6.50); %Eosinophils 0.7 % (0.0-10.0); %Lymphocytes 6.6 % (21.0-51.0); %Monocytes 4.8 % (0.0-10.0); %Neutrophils 87.9 % (42.0-75.0); Hemoglobin 12.3 g/dL (14.0-18.0); Mean Corpuscular HGB CONC 33.7 g/dL (32.0-36.0); Mean Corpuscular Hemoglobin 35.4 pg (27.0-31.0); Mean Platelet Volume 6.6 fL (7.4-10.4); Platelet Count 418 thou/uL (130-400); RBC Distribution Width 13.5 % (11.5-14.5); Red Blood Cell (RBC) Count 3.47 mill/uL (4.70-6.10); White Blood Cell (WBC) Count 17.5 thou/uL (4.8-10.8)
[2020-09-24 12:21] LABS: INR-International Normal Ratio 1.4; PTT 41.5 sec (22.9-36.1); Prothrombin Time 17.5 sec (12.0-14.7)
--- NOTE | 2020-09-24 12:35 | RAD ---
XR Chest 1 View Portable History: Preop evaluation Comparison: Radiograph May 30, 2020 Findings: Multiple left-sided rib fractures are not acute. There is a density projecting of the right posterior fifth and seventh ribs likely calcified formation from healing fractures. No pneumothorax. Impression: Healing bilateral rib fractures.
[2020-09-24 12:37] LABS: ALT (SGPT) 50 U/L (8-55); AST (SGOT) 49 U/L (5-34); Albumin 3.3 g/dL (3.4-4.8); Alkaline Phosphatase 116 U/L (40-110); Anion Gap 15 mmol/L (10-20); BUN (Urea Nitrogen) 12 mg/dL (8.4-25.7); Bilirubin, Total 0.7 mg/dL (0.2-1.2); Calc. Creatinine Clearance 0 mL/min (70-130); Calcium 9.3 mg/dL (7.8-10.44); Carbon Dioxide 25 mmol/L (23-31); Chloride 93 mmol/L (98-107); Globulin 4.2 g/dL (2.4-3.5); Glucose 100 mg/dL (80-115); Lipase 12 U/L (8-78); Potassium 3.9 mmol/L (3.5-5.1); Protein, Total 7.5 g/dL (5.8-8.1); Sodium 129 mmol/L (136-145)
[2020-09-24] MEDS ORDERED: Ondansetron PF 4 MG/2 ML Vial ONE (13:23)
[2020-09-24] MEDS ORDERED: Morphine 4 MG/ML VIAL ONE (13:23)
[2020-09-24 13:40] LABS: Bacteria/HPF None Seen HPF (None Seen); Bilirubin Negative (Negative); Blood, Urine Negative (Negative); Clarity Clear (Clear); Glucose, Urine (Dipstick) Normal (Negative); Ketone, Urine Negative (Negative); Leukocyte 250 Leu/uL (Negative); Mucous/LPF 1+ LPF (<2+); Nitrite Negative (Negative); Protein, Urine (Dipstick) 30 mg/dL (Neg-Trace); Specific Gravity, Urine 1.023 (1.002-1.036); Squamous Epithelial None Seen HPF (0-3); Urobilinogen Greater than 12 mg/dL (Less than 2); Yeast-Hyphae 1+ HPF (None Seen)
[2020-09-24 13:51] LABS: Yeast-Budding 3+ HPF (None Seen)
[2020-09-24 14:07] LABS: Alcohol Less than 10 mg/dL (Less than 10); Magnesium 1.7 mg/dL (1.6-2.6); Phosphorus 3.1 mg/dL (2.3-4.7)
--- NOTE | 2020-09-24 14:30 | CON ---
DATE OF CONSULTATION: 09/24/2020 This is Jennie Abdalla PA-C dictating a report for Esau Caban MD. REQUESTING PHYSICIAN: Miguel Ángel Berman DO REASON FOR CONSULTATION: Right hip fracture. HISTORY OF PRESENT ILLNESS: This is a 65-year-old male who was getting out of his car trying to ambulate into our professional office building today for followup with Dr. Chapa, status post 2nd toe amputation 2 weeks ago, when he fell. The events of his fall are unknown whether he got weak and dizzy and fell or whether he had a mechanical fall. He fell landing onto his right side. He was brought to our emergency facility where he was found to have a right intertrochanteric femur fracture. He denies loss of consciousness. He does state that he hit his head when he fell. He denies any numbness or tingling, however, he has peripheral vascular disease and his sensation is decreased in his toes at baseline. PAST MEDICAL HISTORY: Significant for coronary artery disease treated with stents, gastroesophageal reflux disease, history of a bleeding ulcer, hypertension, pulmonary disease including COPD, emphysema. The patient is legally blind, anxiety. SURGICAL HISTORY: Ganglion cyst bilateral wrists, stent placement at right leg. 2nd toe amputation on 09/13/2020. SOCIAL HISTORY: Patient drinks everyday, approximately 18 beers per day. He is a chronic smoker, but is down to 2 to 3 cigarettes per day. Denies any illicit drug use. Lives at home with family. Ambulates with a walker. ALLERGIES: PENICILLIN, SULFA, AND TRIMETHOPRIM. REVIEW OF SYSTEMS: Ten-point review of systems conducted and otherwise negative except for stated above. PHYSICAL EXAMINATION: VITAL SIGNS: Shows current vital signs including, blood pressure 141/59, pulse of 60, respiratory rate of 16, temperature of 97.7, and O2 saturation of 100% on room air. GENERAL: The patient is awake and alert. He is in no apparent distress at this time. He does answer questions appropriately, however, his is at bedside and answers majority of the history for him. HEENT: Head is normocephalic and atraumatic. NECK: Supple. Trachea midline. Breathing is nonlabored. EXTREMITIES: Evaluation of the right lower extremity shows the leg to be shortened and externally rotated. There is postoperative shoe and a dressing present to this extremity around the 2nd toe. He does move the foot and ankle up and down plantar flexing and dorsiflexing. Skin is intact overlying the hip. He does move all remaining 3 extremities without any difficulty. No signs of trauma. RADIOGRAPHIC IMAGING: Reviewed including a right hip x-ray shows evidence of an intertrochanteric femur fracture on the right. IMPRESSION: Status post fall with right intertrochanteric fracture on the right. PLAN: At this time, patient states he has been n.p.o. since 8 a.m. He will be admitted to the Trauma Service. They will work him up medically. If he is cleared, we would like to go ahead and operate on him this afternoon. If he is not clear, we will plan for surgical intervention tomorrow, likely a Dynamic Hip Screw to the right hip. Risks, benefits, and alternatives discussed with the family today at length. They verbalized understanding and are amenable to this. Job ID: [id number] MTDD
[2020-09-24] MEDS ORDERED: Ondansetron PF 4 MG/2 ML Vial IVP PRN (14:58)
[2020-09-24] MEDS ORDERED: Dextrose 5% in Water 1,000 ML IV PRN (14:58)
[2020-09-24] MEDS ORDERED: Dextrose 50% Abboject 50 ML SYRINGE SLOW IVP PRN (14:58)
[2020-09-24] MEDS ORDERED: traMADol HCl 50 MG TAB PO PRN ×2 (15:02)
[2020-09-24] MEDS ORDERED: Magnesium 2 GM/50 ML 2 GM in Premix Bag 1 BAG IVPB SCH (15:15)
[2020-09-24] MEDS ORDERED: PHOS-NAK 1 PKT PACK PO SCH (15:15)
[2020-09-24] MEDS ORDERED: Clindamycin/D5W 900 MG in Premix Bag 1 BAG IVPB SCH (16:00)
[2020-09-24] MEDS: Sodium Chloride 0.9% 1,000 ML IV SCH (17:29)
[2020-09-24] MEDS ORDERED: Magnesium 2 GM/50 ML BAG (IN WATER) ONE (17:37)
--- NOTE | 2020-09-24 17:53 | HP ---
TRAUMA SURGEON: Dr. Richardson. CONSULTING PHYSICIAN: Dr. Caban. HISTORY OF PRESENT ILLNESS: The patient is a 65-year-old male, who presented to the emergency department after a mechanical fall on the way to Dr. Chapa's office. The patient's is at the bedside, reported recently has had issues with decompensation. He recently had a right 2nd digit amputation due to necrosis. The patient has pretty significant peripheral vascular disease and has had stents placed during his last hospitalization as well. He is a chronic alcoholic. It appears that he is failing to thrive. His mentation is slightly compromised. He is sleepy after receiving some morphine. The patient's at bedside reports he was drinking about 18 beers a day before his most recent surgery, now he drinks about 1 to 2. He is not eating well. He has slowly decompensated at home until his fall today. He is seen by Dr. Wong as his computer support analyst, who apparently has done a workup and is recommending possible additional stents versus a CABG. The patient's at the bedside is minimally aware of the patient's medical issues, but is not well-enough informed to give concrete plans. The patient was evaluated by the emergency room physicians after the mechanical fall. He found a right intertrochanteric femur fracture. Orthopedic Surgery would like to take the patient to the OR. Upon my evaluation, the patient was resting comfortably after receiving IV morphine. He also had a complication of urinary retention after discharge from his surgery. He returned to the ER and got a Johnson catheter placement. Upon my evaluation, there seems to be a discharge around the catheter. ER nurse was asked to replace the Johnson and send a new UA sample. REVIEW OF SYSTEMS: All additional 10-point review of systems negative except as indicated above. PAST MEDICAL HISTORY: Coronary artery disease, cardiac stents; GERD; bleeding ulcer; hypertension; COPD; anxiety; blindness; alcohol abuse; severe peripheral vascular disease, status post right lower extremity stenting and toe necrosis; urinary retention; chronic hyponatremia. PAST SURGICAL HISTORY: Cardiac stent placement, right upper extremity vascular arterial stent placement. SOCIAL HISTORY: The patient smokes about a pack and a half a day. He is an alcohol abuser, previously drinking about 18 beers a day until his last hospitalization in the earlier part of this month. Since then, he drinks about 1 to 2 beers. The patient's at bedside denies drug use. He has been using a walker and a cane since his last hospitalization until he decompensated to a point where he is unstable on his feet. MEDICATIONS: Unknown. The patient's family to provide a list. ALLERGIES: PENICILLIN, SULFA MEDICATIONS. PHYSICAL EXAMINATION: VITAL SIGNS: Temperature 98.2, pulse 74, respirations 12, oxygen saturation 100% on room air, blood pressure 131/74. PRIMARY SURVEY: Airway intact. Adequate breath sounds bilaterally. 2+ pulses in bilateral radials, femorals, and DPs. GCS 14, -1 for verbal. Gross motor and sensation are intact. No laceration, bruising, or external bleeding. SECONDARY SURVEY: HEAD: Normocephalic, atraumatic. No gross palpable skull deformities. EYES: Pupils 3 to 2, equal, round, reactive to light bilaterally. ENT: No signs of trauma. C-SPINE: No signs of trauma. CHEST: Nontender. No crepitus. No abrasions or ecchymosis noted. ABDOMEN: Soft, nontender, nondistended. PELVIS: Stable to palpation. Nontender. RECTAL: Deferred. GENITOURINARY: The patient has a Johnson catheter in place with discharge. It is crusted around the head of the penis. No sign of purulence in the Johnson catheter itself with yellow urine in bag. EXTREMITIES: 2+ pulses in bilateral radials, femorals, and DPs. Right lower extremity with gauze that is clean, dry, and intact. Gross motor and sensation in all 4 extremities. BACK/SPINE: No signs of trauma. NEUROLOGIC: 5/5 strength in bilateral gui developer, plantarflexion, dorsiflexion. Gross normal sensation x4 extremities. LABORATORY FINDINGS: White count 17.5, hemoglobin 12.3, hematocrit 36.4, platelets 418. INR 1.7, PT 17.5, PTT 41.5. Sodium 139, potassium 3.9, chloride 93, bicarb 25, BUN 12, creatinine 0.85, glucose 100, lactic acid 1.7, phosphorus 3.1, magnesium 1.7, total bilirubin 0.7, AST 49, ALT 50, alkaline phosphatase 117, lipase 12. DIAGNOSTIC FINDINGS: Chest x-ray demonstrates healing bilateral rib fractures. X-ray of the pelvis demonstrates intertrochanteric fracture of the right femur. X-ray of the right hip demonstrates intertrochanteric fracture of the right femur. ASSESSMENT: 1. Status post mechanical fall from standing. 2. Right intertrochanteric femur fracture. 3. Acute hypomagnesemia, hypokalemia, hypophosphatemia. 4. Altered mental status with failure to thrive. 5. History of severe peripheral vascular disease, status post lower extremity stents; recent toe necrosis, status post amputation; urinary retention; coronary artery disease, cardiac stents; chronic obstructive pulmonary disease; alcohol abuse; gastric ulcers; blindness; gastroesophageal reflux disease. PLAN: The patient will be admitted to the Trauma Service. He will have a regular diet as well as normal saline at 120 an hour. We will ask the dietitian to start evaluating the patient tomorrow. He will go to the OR tomorrow with Orthopedic Surgery for fixation of his right intertrochanteric femur fracture. We will also send an ammonia, replace Johnson catheter, and send UA again. The patient may have a urinary tract infection or elevated ammonia causing his altered mental status, although it could be related to his protein-calorie malnutrition. Wound Care to evaluate the patient's previous operative site on right lower extremity. This patient will be discussed with Dr. Richardson after this dictation. Job ID: [id number]
[2020-09-24 18:54] LABS: Bacteria/HPF None Seen HPF (None Seen); Bilirubin Negative (Negative); Blood, Urine 1+ (Negative); Clarity Clear (Clear); Glucose, Urine (Dipstick) Normal (Negative); Ketone, Urine 10 mg/dL (Negative); Leukocyte 500 Leu/uL (Negative); Mucous/LPF 1+ LPF (<2+); Nitrite Negative (Negative); Protein, Urine (Dipstick) 30 mg/dL (Neg-Trace); Specific Gravity, Urine 1.024 (1.002-1.036); Squamous Epithelial 0-3 HPF (0-3); WBC/HPF 21-50 HPF (0-3); Yeast-Hyphae Rare HPF (None Seen); pH, Urine 6.5 (5.0-9.0)
[2020-09-24 19:03] LABS: Urine Culture Reflex Yes Yes
[2020-09-24 20:07] LABS: SARS-CoV-2 MS2 Positive; SARS-CoV-2 N Gene Negative; SARS-CoV-2 S Gene Negative; SARS-CoV-2 by NAA Not Detected (NotDetected); SARS-CoV-2 orf1ab Negative
[2020-09-24] MEDS: Famotidine/PF 20 mg/2ml Vial SLOW IVP SCH (20:50)
[2020-09-24] MEDS: Tamsulosin HCl 0.4 MG CAP PO SCH (20:50)
[2020-09-24] MEDS: Senokot S 8.6-50 MG TAB PO SCH (20:50)
[2020-09-24] MEDS ORDERED: traMADol HCl 50 MG TAB ONE (20:51)
[2020-09-24] MEDS ORDERED: Famotidine/PF 20 mg/2ml Vial ONE (20:51)
[2020-09-25] MEDS: Sodium Chloride 0.9% 1,000 ML IV SCH ×2 (01:33→16:27)
[2020-09-25] MEDS: Acetaminophen 325 MG TAB PO SCH ×3 (04:32→16:28)
[2020-09-25] MEDS: Ibuprofen 200 MG TAB PO SCH ×3 (04:32→16:28)
[2020-09-25] MEDS ORDERED: Acetaminophen 325 MG TAB ONE (05:48)
[2020-09-25] MEDS ORDERED: Ibuprofen 200 MG TAB ONE (05:49)
[2020-09-25 06:02] LABS: #Eosinphils 0.1 thou/uL (0.0-0.7); #Monocytes 0.8 thou/uL (0.11-0.59); #Neutrophils 10.9 thou/uL (1.40-6.50); %Basophils 0.2 % (0.0-1.0); %Eosinophils 0.5 % (0.0-10.0); %Lymphocytes 7.8 % (21.0-51.0); %Monocytes 6.2 % (0.0-10.0); %Neutrophils 85.3 % (42.0-75.0); Hemoglobin 10.7 g/dL (14.0-18.0); Mean Corpuscular HGB CONC 33.1 g/dL (32.0-36.0); Mean Corpuscular Hemoglobin 34.2 pg (27.0-31.0); Mean Platelet Volume 7.3 fL (7.4-10.4); Platelet Count 359 thou/uL (130-400); RBC Distribution Width 13.7 % (11.5-14.5); Red Blood Cell (RBC) Count 3.13 mill/uL (4.70-6.10); White Blood Cell (WBC) Count 12.8 thou/uL (4.8-10.8)
[2020-09-25 06:25] LABS: Anion Gap 15 mmol/L (10-20); BUN (Urea Nitrogen) 13 mg/dL (8.4-25.7); Calc. Creatinine Clearance 0 mL/min (70-130); Calcium 8.3 mg/dL (7.8-10.44); Carbon Dioxide 21 mmol/L (23-31); Chloride 99 mmol/L (98-107); Glucose 110 mg/dL (80-115); Phosphorus 3.2 mg/dL (2.3-4.7); Potassium 3.5 mmol/L (3.5-5.1); Sodium 131 mmol/L (136-145)
[2020-09-25] MEDS ORDERED: Potassium Phosphate 15 MMOL in Sodium Chloride 0.9% 250 ML 250 ML IVPB SCH (08:00)
[2020-09-25] MEDS ORDERED: Famotidine/PF 20 mg/2ml Vial ONE (09:16)
[2020-09-25] MEDS: Famotidine/PF 20 mg/2ml Vial SLOW IVP SCH (09:36)
[2020-09-25] MEDS: Senokot S 8.6-50 MG TAB PO SCH (09:39)
[2020-09-25] MEDS ORDERED: Lidocaine 1% PF 5 ML VIAL ONE (10:55)
[2020-09-25] MEDS ORDERED: Succinylcholine 200 MG/10 ml SYRINGE FS ONE (10:55)
[2020-09-25] MEDS ORDERED: Rocuronium Bromide 10 MG/ML (10ML VIAL) ONE (10:55)
[2020-09-25] MEDS ORDERED: PROPOFOL 200 MG/20 ML VIAL ONE (10:55)
[2020-09-25] MEDS ORDERED: Glycopyrrolate 0.2 MG/ML 5 ML SYRINGE ONE (10:55)
[2020-09-25] MEDS ORDERED: PHENYLEPHRINE-NS 100 MCG/ML 10 ML SYRINGE ONE (10:55)
[2020-09-25] MEDS ORDERED: Clindamycin/D5W 900 mg/50 ml Premix Bag ONE (13:57)
[2020-09-25] MEDS ORDERED: Fentanyl 100 MCG/2 ML VIAL ONE ×3 (14:32→22:39)
[2020-09-25] MEDS ORDERED: Acetaminophen/Codeine 30-300mg Tablet PO PRN ×2 (15:23)
[2020-09-25] MEDS ORDERED: SUGAMMADEX SODIUM 200 MG/2 ML VIAL ONE (16:02)
[2020-09-25] MEDS ORDERED: Ondansetron HCl/PF 4 MG/2 ML Vial IVP PRN (16:14)
[2020-09-25] MEDS ORDERED: Promethazine HCl 25 MG/ML VIAL SLOW IVP PRN (16:14)
[2020-09-25] MEDS ORDERED: Promethazine HCl 25 MG/ML VIAL IM PRN (16:14)
--- NOTE | 2020-09-25 16:54 | OP ---
DATE OF PROCEDURE: 09/25/2020 PREOPERATIVE DIAGNOSIS: Right intertrochanteric femur fracture. POSTOPERATIVE DIAGNOSIS: Right intertrochanteric femur fracture. PROCEDURE PERFORMED: Right intertrochanteric femur fracture stabilization with dynamic hip screw. ANESTHESIA: General. NURSES MEDICAL ASSISTANTS PHLEBOTOMISTS: Guido Lobato PA-C. IMPLANTS: Synthes 3-hole 135-degree DHS sideplate with 100 mm hip screw. COMPLICATIONS: None. DRAINS: None. SPECIMEN: None. OUTCOME: Satisfactory. INDICATIONS FOR PROCEDURE: The patient is a 65-year-old gentleman status post fall sustaining a right intertrochanteric femur fracture with displacement. After discussion with the patient including risks and benefits, we decided to proceed with stabilization with a DHS device. Informed consent has been obtained. I believe all questions have been answered. DESCRIPTION OF PROCEDURE: The patient was brought to the operating room and a time-out performed followed by induction of general anesthesia. Next, the patient was positioned supine on the fracture table with the injured right extremity held in longitudinal traction after a closed reduction maneuver consisting of traction with the hip flexed and then bringing the leg into slight abduction and internal rotation while the hip was extended. This was then placed in a traction boot with gentle traction applied. The well leg was held in extension at the hip to allow for AP and lateral C-arm imaging of the right hip. Next, C-arm images were obtained that showed a near-anatomic alignment. A sterile prep and drape were then performed of the right lateral thigh. A small incision was made distal to the greater trochanter extending in line with the femur distally for a length of approximately 4 inches after skin was sharply incised. Dissection was carried down to the underlying fascia mando. This was incised in line with the skin incision revealing the underlying fascia of the vastus lateralis. This fascia was incised in line with the skin incision and the muscle belly was swept off the posterior leaflet of the fascia and reflected anteriorly gaining access to the lateral cortex of the femur. My nursing assistants teacher provided reduction of the fracture and retraction of the vastus lateralis muscle to allow me to next proceed with placement of the threaded guidewire. This was done with a 135-degree guide passing the threaded guidewire from the lateral cortex of the femur up the femoral neck into the femoral head approaching a [id number] position. Once appropriately positioned, measurement was taken off this guidewire. Next, the step reamer was passed over this guidewire, reaming to a depth of 100 mm. This was then followed by insertion of the hip screw and sideplate while my nursing assistants teacher continued to provide retraction of the vastus lateralis muscle belly. Once the screw was delivered fully into the femoral head, the sideplate was affixed to the lateral cortex of the femur using a total of three 4.5 mm cortical screws. At the completion of this, AP and lateral C-arm images were obtained that showed acceptable alignment of fracture and acceptable positioning of hardware. The wound was then irrigated with bulb syringe and closed in layers with #1 Vicryl for the fascia mando, followed by 2-0 Vicryl subcutaneously and laurie for the skin. Xeroform gauze and tape dressing was then applied to the lateral thigh and the patient was then transferred to recovery room in stable condition. There were no complications. He tolerated the procedure well. Job ID: [id number]
[2020-09-25] MEDS ORDERED: Metoprolol Tartrate 50 MG TAB PO SCH (17:30)
[2020-09-25] MEDS ORDERED: Cyclobenzaprine 10 MG TAB ONE (17:43)
[2020-09-25] MEDS: Cyclobenzaprine 10 MG TAB PO PRN (17:44)
--- NOTE | 2020-09-25 19:28 | RAD ---
RIGHT HIP THREE VIEWS: 09/25/20 COMPARISON: 09/24/20 HISTORY: ORIF, fracture. FINDINGS: Previously noted proximal right femur fracture has been treated with lateral screw and plate fixation with screw traversing the femoral neck. There is anatomic alignment at the fracture site. IMPRESSION: Intraoperative imaging as above. POS: OFF
[2020-09-26] MEDS: Sodium Chloride 0.9% 1,000 ML IV SCH ×3 (01:01→11:02)
[2020-09-26] MEDS: Clindamycin/D5W 900 MG in Premix Bag 1 BAG IVPB SCH ×3 (01:12→15:32)
[2020-09-26] MEDS: Acetaminophen 325 MG TAB PO SCH ×7 (01:13→23:53)
[2020-09-26] MEDS: Ibuprofen 200 MG TAB PO SCH ×4 (01:13→21:06)
[2020-09-26] MEDS: Folic Acid 1 MG TAB PO SCH ×2 (01:24→11:03)
[2020-09-26] MEDS: Polyethylene Glycol 3350 17 GM Packet PO SCH ×2 (01:24→11:04)
[2020-09-26] MEDS: Famotidine/PF 20 mg/2ml Vial SLOW IVP SCH ×3 (01:24→21:06)
[2020-09-26] MEDS: Senokot S 8.6-50 MG TAB PO SCH ×3 (01:24→21:04)
[2020-09-26] MEDS: Thiamine 100 MG TAB PO SCH ×2 (01:24→11:03)
[2020-09-26] MEDS: Tamsulosin HCl 0.4 MG CAP PO SCH ×2 (01:25→21:06)
--- NOTE | 2020-09-26 02:36 | PRG ---
DATE OF SERVICE: 09/25/2020 SUBJECTIVE: Patient was seen during evening rounds, just returning from PACU. The patient is postop repair of his right intertrochanteric femur fracture by Dr. De La Rosa. The patient is currently resting comfortably, in no distress. The patient's vital signs have been stable and his urinary output is adequate. PLAN: Continue supportive care and pain regimen. PT/OT to evaluate and treat in the morning. Job ID: [id number]
[2020-09-26] MEDS: hydrALAZINE 20 MG/ML VIAL SLOW IVP PRN (05:16)
[2020-09-26 05:26] LABS: #Basophils 0.1 thou/uL (0.0-0.2); #Eosinphils 0.1 thou/uL (0.0-0.7); #Lymphocytes 0.9 thou/uL (1.20-3.40); #Monocytes 0.9 thou/uL (0.11-0.59); %Basophils 0.5 % (0.0-1.0); %Eosinophils 0.8 % (0.0-10.0); %Lymphocytes 6.9 % (21.0-51.0); %Monocytes 7.1 % (0.0-10.0); %Neutrophils 84.7 % (42.0-75.0); Hemoglobin 10.1 g/dL (14.0-18.0); Mean Corpuscular HGB CONC 33.4 g/dL (32.0-36.0); Mean Corpuscular Hemoglobin 35.2 pg (27.0-31.0); Mean Platelet Volume 7.4 fL (7.4-10.4); Platelet Count 315 thou/uL (130-400); RBC Distribution Width 13.9 % (11.5-14.5); Red Blood Cell (RBC) Count 2.88 mill/uL (4.70-6.10)
[2020-09-26 05:57] LABS: Anion Gap 15 mmol/L (10-20); BUN (Urea Nitrogen) 9 mg/dL (8.4-25.7); Calc. Creatinine Clearance 116 mL/min (70-130); Calcium 8.1 mg/dL (7.8-10.44); Carbon Dioxide 20 mmol/L (23-31); Chloride 100 mmol/L (98-107); Glucose 96 mg/dL (80-115); Magnesium 1.7 mg/dL (1.6-2.6); Phosphorus 3.3 mg/dL (2.3-4.7); Potassium 3.6 mmol/L (3.5-5.1); Sodium 131 mmol/L (136-145)
[2020-09-26] MEDS ORDERED: Calcium Carbonate 500 MG ChewTAB PO PRN (08:13)
[2020-09-26] MEDS ORDERED: Non-Formulary Item 1 EACH (Omeprazole Magnesium [Prilosec] 10 MG Suspdr.Pkt) PO SCH (09:00)
[2020-09-26] MEDS ORDERED: PHOS-NAK 1 PKT PACK PO SCH (09:00)
[2020-09-26] MEDS ORDERED: Magnesium 2 GM/50 ML 2 GM in Premix Bag 1 BAG IVPB SCH (09:00)
[2020-09-26] MEDS: Multivitamin W/ Minerals 1 TAB PO SCH (11:03)
[2020-09-26] MEDS: Cyclobenzaprine 10 MG TAB PO PRN ×2 (11:05→21:04)
[2020-09-26] MEDS: Lisinopril 10 MG TAB PO SCH ×2 (11:08→21:05)
--- NOTE | 2020-09-26 13:07 | PDOC.GSPN ---
Surgery Progress Note: Subj - Subjective Narrative: Patient missed his follow-up in clinic this week for his toe amputation due to his admission. His contacted us yesterday to let us know what happened. The wound care team had already changed the dressing today but they stated that there was a fair amount of slough and odor. He is not having much pain in his foot; just his hip, although this is better. I am going to see him early tomorrow with the wound care team. I made him n.p.o. after midnight in case he needs any surgical debridement. The eschars on the great toe appear stable and are being painted with Betadine. Surgery Progress Note: Obj - Vital signs Vital signs: Vital Signs - Most Recent Temp Pulse Resp BP Pulse Ox 98.3 F 78 20 143/81 H 100 09/26/20 12:00 09/26/20 12:00 09/26/20 12:00 09/26/20 12:00 09/26/20 12:00 Surgery Progress Note: Results - Labs Result Diagrams: 09/26/20 05:09 09/26/20 05:09 Lab results: Laboratory Results - last 12 hr 09/26/20 09/26/20 05:09 05:09 WBC 13.0 H RBC 2.88 L Hgb 10.1 L Hct 30.4 L MCV 105.0 H MCH 35.2 H MCHC 33.4 RDW 13.9 Plt Count 315 MPV 7.4 Neutrophils % 84.7 H Lymphocytes % 6.9 L Monocytes % 7.1 Eosinophils % 0.8 Basophils % 0.5 Neutrophils # 11.0 H Lymphocytes # 0.9 L Monocytes # 0.9 H Eosinophils # 0.1 Basophils # 0.1 Sodium 131 L Potassium 3.6 Chloride 100 Carbon Dioxide 20 L Anion Gap 15 BUN 9 Creatinine 0.71 Estimated GFR (MDRD) Greater than 90 Glucose 96 Calcium 8.1 Phosphorus 3.3 Magnesium 1.7
--- NOTE | 2020-09-26 15:41 | PRG ---
DATE OF SERVICE: 09/25/2020 SUBJECTIVE: The patient is a 65-year-old male, who presents after a mechanical fall on the way to Dr. Chapa's office. He recently had a right second digit amputation due to necrosis. The patient does have a pretty significant history of peripheral vascular disease. He is a chronic alcoholic. With his mechanical fall, he was found to have a right intertrochanteric femur fracture. Orthopedic Surgery is on board and plan is to go to surgery today. The patient says he is doing okay this morning upon examination. OBJECTIVE: VITAL SIGNS: Within normal limits. GENERAL: The patient is lying comfortably in bed. HEENT: Normocephalic and atraumatic head. CHEST: Nontender. CARDIAC: Regular rate and rhythm. RESPIRATORY: No acute respiratory distress. GENITOURINARY: The patient has a Johnson catheter in place. EXTREMITIES: 2+ pulses in bilateral radial, femoral and DP. Right lower extremity with gauze that is clean, dry, and intact. NEUROLOGIC: Gross motor sensation in all four extremities. NEUROLOGIC: Neurovascularly intact. GCS of 15 LABORATORY VALUES: White blood cell count 12.8, MCV 103, hemoglobin 10.7. Sodium 131, potassium 3.5, and magnesium 2, phosphorus 3.2, calcium 8.3. UA from 09/24 shows 10 ketones, 1+ blood, 500 leukocyte esterase, 4 to 6 red blood cells, 21 to 50 white blood cells, rare yeast. Culture is pending. IMAGING STUDIES: No new radiographic images to review ASSESSMENT: 1. Status post mechanical fall from standing. 2. Right intertrochanteric femur fracture, day of operation. 3. Acute hypomagnesemia, hypokalemia, and hypophosphatemia, resolved. 4. Altered mental status with failure to thrive. 5. History of severe peripheral vascular disease, status post lower extremity stent. 6. Recent toe necrosis, status post amputation. 7. Urinary retention. 8. Coronary artery disease. 9. Cardiac stents. 10. Chronic obstructive pulmonary disease. 11. Alcohol abuse. 12. Gastric ulcers. 13. Gastroesophageal reflux disease. PLAN: The patient is to go to surgery today to repair his right intertrochanteric femur fracture. We will continue patient on regular diet postop and work on pain control. PT and OT is ordered to work with patient. Will follow up ortho recs. Consulted Dietary given patient's chronic malnutrition. We will follow up with Case Management to see about rehab on discharge. Dr. Richardson was present and saw the patient during rounds. Plan was discussed with him and he agrees with the above documentation. Job ID: [id number] MTDD
--- NOTE | 2020-09-26 20:52 | PRG ---
DATE OF SERVICE: 09/26/2020 SUBJECTIVE: The patient is a 65-year-old male who presents after mechanical fall at Dr. Chapa's office. He recently had a right 2nd digit amputation due to necrosis from severe peripheral vascular disease. He is also a chronic alcoholic. The patient is postop day #1 status post right intertrochanteric femur fracture stabilization with dynamic hip screw. The patient is sitting up in bed today. States his pain is pretty well controlled. He states it is worse with movement, but is not unbearable. He is tolerating regular diet. Although, he only had about 40% of his meal, so we will add a nutritional supplement to make sure that he is getting adequate nutrition, especially with his setting of chronic alcoholism. He plans to work with Physical Therapy and Occupational Therapy. OBJECTIVE: VITAL SIGNS: Temperature 98.2, pulse 74, respiratory rate 18, SpO2 of 100% on room air. Blood pressure 134/74. GENERAL: Patient is lying comfortably in bed, in no acute distress. HEENT: Normocephalic and atraumatic. CARDIAC: Regular rate and rhythm. RESPIRATORY: No acute respiratory distress. Nonlabored breathing. EXTREMITIES: 2+ pulses in bilateral radial, femoral, and DP. Right lower extremity with gauze that is clean, dry, and intact. NEUROLOGICAL: Neurovascularly intact. GCS of 15. Gross motor sensation in all 4 extremities. MUSCULOSKELETAL: The patient is postop for right hip surgery. Incision site is covered with a dressing that is clean, dry, and intact. LABORATORY VALUES: White blood cell count 13, hemoglobin 10.1, hematocrit 30.4. Sodium 131, potassium 3.6, chloride 100, BUN 9, creatinine 0.71, and magnesium 1.7. Phosphorus 3.3, calcium 8.1. There is no new radiographic imaging to be reviewed today. ASSESSMENT: 1. Status post mechanical fall from standing. 2. Right intertrochanteric femur fracture postop day #1. 3. Acute hypomagnesemia, hypokalemia, and hypophosphatemia, resolved. 4. Altered mental status with failure to thrive, improved. 5. History of severe peripheral vascular disease, status post lower extremity stent. 6. Recent toe necrosis, status post amputation. 7. Urinary retention. 8. Coronary artery disease. 9. Cardiac stents. 10. Chronic obstructive pulmonary disease. 11. Alcohol abuse. 12. Gastric ulcers. 13. Gastroesophageal reflux disease. 14. Blindness. 15. History of atrial fibrillation. PLAN: The patient is postop day #1. Pain is well controlled. Continue pain management. Encourage intake of regular diet. Will supplement with Ensure to make sure that patient gets adequate nutrition. We will follow up Ortho recs and will follow up with Case Management to see about rehab on discharge. We will consider adding a Dobhoff for patient if he is able to tolerate his p.o. diet. Dr. Richardson was present and saw the patient during rounds. Plan was discussed with him and he agrees with the above documentation and plan. Job ID: [id number] MTDD
[2020-09-27 05:46] LABS: #Eosinphils 0.1 thou/uL (0.0-0.7); #Lymphocytes 1.1 thou/uL (1.20-3.40); #Monocytes 0.8 thou/uL (0.11-0.59); #Neutrophils 8.8 thou/uL (1.40-6.50); %Basophils 0.3 % (0.0-1.0); %Eosinophils 1.3 % (0.0-10.0); %Lymphocytes 10.4 % (21.0-51.0); Hemoglobin 9.9 g/dL (14.0-18.0); Mean Corpuscular HGB CONC 33.2 g/dL (32.0-36.0); Mean Corpuscular Hemoglobin 34.7 pg (27.0-31.0); Mean Platelet Volume 6.8 fL (7.4-10.4); Platelet Count 322 thou/uL (130-400); RBC Distribution Width 13.5 % (11.5-14.5); Red Blood Cell (RBC) Count 2.84 mill/uL (4.70-6.10); White Blood Cell (WBC) Count 10.8 thou/uL (4.8-10.8)
[2020-09-27] MEDS: Acetaminophen 325 MG TAB PO SCH ×4 (05:50→22:13)
[2020-09-27] MEDS: Ibuprofen 200 MG TAB PO SCH ×3 (05:50→21:57)
[2020-09-27 06:08] LABS: Anion Gap 14 mmol/L (10-20); BUN (Urea Nitrogen) 10 mg/dL (8.4-25.7); Calc. Creatinine Clearance 113 mL/min (70-130); Calcium 8.3 mg/dL (7.8-10.44); Carbon Dioxide 22 mmol/L (23-31); Chloride 100 mmol/L (98-107); Glucose 95 mg/dL (80-115); Magnesium 1.9 mg/dL (1.6-2.6); Phosphorus 3.2 mg/dL (2.3-4.7); Potassium 3.3 mmol/L (3.5-5.1); Sodium 133 mmol/L (136-145)
[2020-09-27] MEDS ORDERED: Magnesium 2 GM/50 ML 2 GM in Premix Bag 1 BAG IVPB SCH (08:00)
[2020-09-27] MEDS ORDERED: Potassium Phosphate 30 MMOL in Sodium Chloride 0.9% 250 ML 250 ML IVPB SCH (08:00)
[2020-09-27] MEDS ORDERED: Aspirin 81 mg Enteric Coated Tablet PO SCH (09:00)
[2020-09-27] MEDS: Fluconazole 100 MG TAB PO SCH (09:54)
[2020-09-27] MEDS: Multivitamin W/ Minerals 1 TAB PO SCH (09:55)
[2020-09-27] MEDS: Aspirin 81 mg Enteric Coated Tablet PO SCH ×2 (09:55→22:04)
[2020-09-27] MEDS: Folic Acid 1 MG TAB PO SCH (09:55)
[2020-09-27] MEDS: Senokot S 8.6-50 MG TAB PO SCH ×2 (09:55→21:56)
[2020-09-27] MEDS: Thiamine 100 MG TAB PO SCH (09:55)
[2020-09-27] MEDS: Lisinopril 10 MG TAB PO SCH ×2 (09:55→22:02)
[2020-09-27] MEDS: Polyethylene Glycol 3350 17 GM Packet PO SCH (09:56)
[2020-09-27 11:32] VITALS: BMI 22.9
--- NOTE | 2020-09-27 12:58 | PRG ---
DATE OF SERVICE: 09/27/2020 SUBJECTIVE: The patient was seen this morning during rounds. He was sitting up in bed, awake and alert with no signs of acute distress. He reports pain is well controlled. He has not had a diet today as I believe Dr. Chapa initially planned to take the patient to the OR for debridement of a toe amputation; however, we touched base with her during rounds and she reports she is not planning to take the patient to the OR today, so we gave him a regular diet. OBJECTIVE: VITAL SIGNS: Temperature 97.8, pulse 62, respirations 14, oxygen saturation 100% on room air, blood pressure 146/74. GENERAL: Well-appearing elderly male, lying in bed with no signs of acute distress. PULMONARY: Equal chest rise and fall. Clear breath sounds bilaterally. No signs of acute respiratory distress. CARDIAC: Regular rate and rhythm. GI: Abdomen is soft, nontender, nondistended. EXTREMITIES: 2+ pulses in all extremities. Gross motor and sensation are intact. No significant swelling noted. The patient's right foot wound is dressed with no signs of oozing. NEURO: GCS is 14, -1 for confusion. This is his baseline. LABORATORY FINDINGS: White count 10.8, hemoglobin 9.9, hematocrit 29.7, platelets 322. Sodium 133, potassium 3.3, chloride 100, bicarb 22, BUN 10, creatinine 0.73, phosphorus 3.2, magnesium 1.9. DIAGNOSTIC FINDINGS: There are no new diagnostic findings to discuss. ASSESSMENT: 1. Status post mechanical fall from standing. 2. Right intertrochanteric femur fracture, status post repair. 3. Failure to thrive and altered mental status, improving. 4. Urinary tract infection, yeast, present on admission. 5. Recent history of urinary retention. 6. History of atrial fibrillation, alcohol abuse, peripheral vascular disease of lower extremity and cardiac stents, and urinary retention. PLAN: Advance to regular diet with Ensure. Dietitian to add additional supplements. Continue fluconazole for a total of 14 days now that the patient has been on Flomax for several days. We will discontinue Johnson today and try void trial. Replace potassium, phosphorus, and magnesium. The patient is pending discharge to [facility] bed. This patient was seen and evaluated by Dr. Richardson and myself this morning during rounds. Job ID: [id number]
--- NOTE | 2020-09-27 13:38 | PQF ---
CLINICAL DOCUMENTATION CLARIFICATION FORM: Dear Dr. Richardson Date: 09/27/2020 Please exercise your independent, professional judgment in responding to the clarification form. Clinical indicators are provided on the bottom of this form for your review. Please check appropriate box(es): [ ] Mild Protein Calorie Malnutrition [ x ] Moderate Protein Calorie Malnutrition [ ] Severe Protein Calorie Malnutrition [ ] Other Malnutrition (please specify) [ ] Other diagnosis [ ] Unable to determine In addition, please specify: Present on Admission (POA): [ x] Yes [ ] No [ ] Unable to determine For continuity of documentation, please document condition throughout progress notes and discharge summary. Thank You. To be completed by CDI/Coding staff for physician review: CLINICAL INDICATORS - SIGNS / SYMPTOMS / LABS / RESULTS AND LOCATION IN MR *H&P 09/24 ([facility]) Plan: The pt may have a UTI or elevated ammonia causing his altered mental status, although it could be related to his protein-calorie malnutrition. *09/26 pn ([facility]) Assessment: Altered mental status with failure to thrive, improved. *Rn Office Assessment 09/27: BMI 22.9 Nutrition Dx: Malnutrition r/t alcoholism, COPD As evidenced By: <75% energy intake compared to estimated energy needs for >1 month with 3.5% wt loss over the past 1 month and 43.3% wt loss over the past 1 year and mild temporal muscle wasting, suggestive of non-severe malnutrition in the context of chronic illness. RISK FACTORS / RESULTS AND LOCATION IN MR H&P 09/24 ([facility]) PMH: CAD; HTN, COPD; alcohol abuse; severe PVD; chronic hyponatremia. Assessment: R femur fx; Acute hypomagnesemia, hypokalemia, hypophosphatemia. Altered mental status with failure to thrive. Recent toe necrosis, s/p amputation. TREATMENT / RESULTS AND LOCATION IN MR *09/25 pn ([facility]) Plan: Consulted Dietary given pt's chronic malnutrition *09/26 pn ([facility]): Plan: Will supplement with Ensure to make sure pt gets adequate nutrition. Moderate Malnutrition (in acute illness) Energy Intake: <75% of estimated energy requirement for > 7 days Weight Loss: 1-2%/1 week; 5%/ 1 month; 7.5%/3 months Other: mild body fat loss; mild muscle mass loss; mild fluid accumulation; Severe Malnutrition (in acute illness) Energy Intake: = 50% of estimated energy requirement for = 5 days Weight Loss: >2%/1 week; >5%/1 month; >7.5%/3 months Other: moderate body fat loss; moderate muscle mass loss; moderate- severe fluid accumulation; measurably reduced avionics installer strength Moderate Malnutrition (in chronic illness) Energy Intake: <75% of estimated energy requirement for =1 month Weight Loss: 5%/1 month; 7.5%/3 months; 10%/6 months; 20%/1 year Other: mild body fat loss; mild muscle mass loss; mild fluid accumulation Severe Malnutrition (in chronic illness) Energy Intake: =75% of estimated energy requirement for =1 month Weight Loss: >5%/1 month; >7.5%/3 months; >10%/6 months; >20%/1 year Other: severe body fat loss; severe muscle mass loss; severe fluid accumulation; measurably reduced avionics installer strength Thank you, Carmelita Gilbert RN, BSN [email or web address] Cell This is a permanent part of the Medical Record [facility]
--- NOTE | 2020-09-27 17:15 | PDOC.GSPN ---
Surgery Progress Note: Subj - Subjective Narrative: Saw with wound care today, did sharp excisional debridement of subcutaneous tissues at bedside. Limited by pain. Bone exposed in base of wound, little to no granulation tissue but no purulence or erythema. May not have adequate blood supply to heal. Will try multidex chemical debridment and VAC to encourage tissue ingrowth. If no progress in 2 weeks will plan operative debridement. Surgery Progress Note: Obj - Vital signs Vital signs: Vital Signs - Most Recent Temp Pulse Resp BP Pulse Ox 97.8 F 75 18 160/83 H 100 09/27/20 15:45 09/27/20 15:45 09/27/20 15:45 09/27/20 15:45 09/27/20 15:45 Surgery Progress Note: Results - Labs Result Diagrams: 09/27/20 05:26 09/27/20 05:26 Lab results: Laboratory Results - last 12 hr 09/27/20 09/27/20 05:26 05:26 WBC 10.8 RBC 2.84 L Hgb 9.9 L Hct 29.7 L MCV 104.0 H MCH 34.7 H MCHC 33.2 RDW 13.5 Plt Count 322 MPV 6.8 L Neutrophils % 81.0 H Lymphocytes % 10.4 L Monocytes % 7.0 Eosinophils % 1.3 Basophils % 0.3 Neutrophils # 8.8 H Lymphocytes # 1.1 L Monocytes # 0.8 H Eosinophils # 0.1 Basophils # 0.0 Sodium 133 L Potassium 3.3 L Chloride 100 Carbon Dioxide 22 L Anion Gap 14 BUN 10 Creatinine 0.73 Estimated GFR (MDRD) Greater than 90 Glucose 95 Calcium 8.3 Phosphorus 3.2 Magnesium 1.9
[2020-09-27] MEDS: Tamsulosin HCl 0.4 MG CAP PO SCH (21:57)
[2020-09-27] MEDS: Oxazepam 10 MG CAP PO SCH (22:13)
--- NOTE | 2020-09-27 23:44 | PRG ---
DATE OF SERVICE: 09/27/2020 SUBJECTIVE: The patient was seen on the surgical floor during evening rounds, awake and alert, but confused. The patient's nurse states that he has been hallucinating, agitated, and refusing any medications, care, or vital signs being taken. The patient is oriented to person only. The patient denies any pain at this time. The patient agreed to have his vital signs taken and agreed to take his night medications when I was at the bedside. The patient is postop day #2, status post dynamic hip screw for his right intertrochanteric femur fracture. Patient's Johnson catheter was removed today and he is voiding without any issues. The patient's output is adequate for age and weight. The patient is a tolerating diet. OBJECTIVE: Patient is mildly hypertensive at 193/85, pulse 82, respirations 16, SpO2 of 99% on room air, temperature 98.0. Respirations are even and nonlabored. PLAN: We will restart patient's home bupropion. Continue physical and occupational therapy. The patient is pending placement to shelter facility pending insurance authorization. [facility] ID: [id number] [facility]
[2020-09-28] MEDS: hydrALAZINE 20 MG/ML VIAL SLOW IVP PRN (03:45)
[2020-09-28] MEDS: Acetaminophen 325 MG TAB PO SCH ×3 (06:34→17:32)
[2020-09-28] MEDS: Oxazepam 10 MG CAP PO SCH (06:34)
[2020-09-28] MEDS: Ibuprofen 200 MG TAB PO SCH ×2 (06:34→13:49)
[2020-09-28] MEDS ORDERED: Potassium Phosphate 30 MMOL in Sodium Chloride 0.9% 250 ML 250 ML IVPB SCH (08:30)
[2020-09-28] MEDS ORDERED: Magnesium 2 GM/50 ML 2 GM in Premix Bag 1 BAG IVPB SCH (08:30)
[2020-09-28] MEDS ORDERED: Oxybutynin ER 5 MG TAB PO SCH (09:00)
[2020-09-28] MEDS ORDERED: Lisinopril 10 MG TAB PO SCH (09:00)
[2020-09-28] MEDS ORDERED: Bupropion 150 MG XL TAB PO SCH ×2 (09:00)
[2020-09-28] MEDS: Senokot S 8.6-50 MG TAB PO SCH (09:02)
[2020-09-28] MEDS: Polyethylene Glycol 3350 17 GM Packet PO SCH (09:03)
[2020-09-28] MEDS: Folic Acid 1 MG TAB PO SCH (09:03)
[2020-09-28] MEDS: Multivitamin W/ Minerals 1 TAB PO SCH (09:04)
[2020-09-28] MEDS: Fluconazole 100 MG TAB PO SCH (09:04)
[2020-09-28] MEDS: Aspirin 81 mg Enteric Coated Tablet PO SCH (09:04)
[2020-09-28] MEDS: Thiamine 100 MG TAB PO SCH (09:04)
[2020-09-28 09:53] LABS: #Eosinphils 0.1 thou/uL (0.0-0.7); #Monocytes 0.6 thou/uL (0.11-0.59); #Neutrophils 10.9 thou/uL (1.40-6.50); %Basophils 0.2 % (0.0-1.0); %Lymphocytes 7.6 % (21.0-51.0); %Monocytes 4.7 % (0.0-10.0); %Neutrophils 86.6 % (42.0-75.0); Hemoglobin 10.6 g/dL (14.0-18.0); Mean Corpuscular Hemoglobin 32.2 pg (27.0-31.0); Mean Platelet Volume 7.5 fL (7.4-10.4); Platelet Count 373 thou/uL (130-400); RBC Distribution Width 13.8 % (11.5-14.5); White Blood Cell (WBC) Count 12.5 thou/uL (4.8-10.8)
[2020-09-28 10:16] LABS: Anion Gap 18 mmol/L (10-20); BUN (Urea Nitrogen) 6 mg/dL (8.4-25.7); Calc. Creatinine Clearance 119 mL/min (70-130); Calcium 8.6 mg/dL (7.8-10.44); Carbon Dioxide 20 mmol/L (23-31); Chloride 98 mmol/L (98-107); Glucose 110 mg/dL (80-115); Magnesium 1.8 mg/dL (1.6-2.6); Phosphorus 3.5 mg/dL (2.3-4.7); Potassium 3.4 mmol/L (3.5-5.1); Sodium 133 mmol/L (136-145)
--- NOTE | 2020-09-28 15:21 | EKG ---
Test Reason : Blood Pressure : / mmHG Vent. Rate : 061 BPM Atrial Rate : 061 BPM P-R Int : 136 ms QRS Dur : 084 ms QT Int : 464 ms P-R-T Axes : 080 090 040 degrees QTc Int : 467 ms Normal sinus rhythm Rightward axis Borderline ECG Confirmed by TERE NGUYEN DO ([id number]), development editor THADDEUS RAMESH ([id number]) on 09/28/2020 3:21:14 PM Referred By: Confirmed By:TERE NGUYEN DO
[2020-09-28 16:21] VITALS: BP 157/71; TEMP 98
[2020-09-28] MEDS ORDERED: Mometasone 100 MCG/Formoterol 5 MCG 120 PUFF INHALER INH SCH (18:30)
[2020-09-28] MEDS ORDERED: Atorvastatin Calcium 40 MG TAB PO SCH (21:00)
--- NOTE | 2020-09-30 06:37 | DIS ---
DATE OF ADMISSION: 09/24/2020 DATE OF DISCHARGE: 09/28/2020 ADMISSION DIAGNOSES: Mechanical fall from standing, right intertrochanteric femur fracture, failure to thrive and altered mental status. DISCHARGE DIAGNOSES: Mechanical fall from standing, right intertrochanteric femur fracture, failure to thrive and altered mental status, yeast urinary tract infection. CONSULTING PHYSICIANS: Dr. De La Rosa of Orthopedic Surgery. PROCEDURES: The patient went to the OR on September 25, 2020 and had a dynamic hip screw fixation of the right intertrochanteric femur fracture. HOSPITAL COURSE: The patient is a 65-year-old male, presented to the emergency department after he had a mechanical fall on his way to Dr. Chapa's office. The patient recently had a right second great toe amputation that was necrotic. He also had stents placed in his right lower extremity for better perfusion. He was ultimately discharged home and showed up in the emergency department a day or so later complaining of urinary retention. A Johnson catheter was placed then, but the patient never followed up with his primary care physician. He re-presented in the ER after a fall at Dr. Chapa's office, where he suffered an injury on the right intertrochanteric femur fracture. He was admitted to our service. Johnson catheter was changed. The patient was found to have a yeast UTI. Ultimately, the Johnson catheter was discontinued after a couple of days of Flomax. Dr. De La Rosa took the patient to the OR for fixation of the right intertrochanteric femur fracture. His altered mental status did improve, although not completely. 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 The patient was talking, however, and following commands regularly. His nutrition had also improved. During his stay, we increased his lisinopril from 10 mg to 20 mg b.i.d. for better blood pressure control. At the time of discharge, the patient's pain was well controlled, he was tolerating regular diet, he was drinking Ensure and was voiding without difficulties. DISCHARGE DISPOSITION: Page swing bed. DISCHARGE CONDITION: Satisfactory. PHYSICAL EXAMINATION: VITAL SIGNS: Temperature 97.7, pulse 85, respirations 18, oxygen saturation 97% on room air, blood pressure 148/78. GENERAL: Thin appearing middle-aged male, lying in bed with no signs of acute distress. PULMONARY: Equal chest rise and fall. Clear breath sounds bilaterally. No signs of acute respiratory distress. CARDIAC: Regular rate and rhythm. GASTROINTESTINAL: Abdomen is soft, nontender, nondistended. EXTREMITIES: 2+ pulses in all extremities. Gross motor and sensation intact. No significant swelling noted. NEURO: GCS is 14, -1 for confusion. DISCHARGE INSTRUCTIONS: The patient was discharged to [facility] bed. Activity as tolerated. Weightbearing as tolerated in all extremities. He will have a regular diet with Ensure t.i.d. Physical and Occupational Therapy as well as Wound Care will see him. Wound Care is seeing him for his right second toe. He will have his incentive spirometry and a wound VAC to his right foot as well. FOLLOWUP APPOINTMENTS: The patient is to follow up with Dr. De La Rosa, also Dr. Chapa would like to see him in 10 days. There is no need for followup with Dr. Richardson in clinic. This is a summary of the patient's hospitalization. For full details, please see his medical record in its entirety. The patient was seen and evaluated by myself on the day of discharge. Job ID: [id number]
--- NOTE | 2020-09-30 09:37 | PQF ---
CLINICAL DOCUMENTATION CLARIFICATION FORM: Dear Jing Schilling PA-C Date: 09/30/2020 Please exercise your independent, professional judgment in responding to the clarification form. Clinical indicators are provided on the bottom of this form for your review. Please check appropriate box(es): [ x ] Encephalopathy: Type: [ ] Acute [x ] Subacute [ ] Chronic Etiology: [ ] Metabolic [ ] Toxic [ ] Unspecified [ ] Other (please specify) [ ] Transient Alteration of Awareness [ ] Other diagnosis [ ] Unable to determine In addition, please specify: Present on Admission (POA): [ x ] Yes [ ] No [ ] Unable to determine For continuity of documentation, please document condition throughout progress notes and discharge summary. Thank You. To be completed by CDI/Coding staff for physician review: CLINICAL INDICATORS - SIGNS / SYMPTOMS / LABS / RESULTS AND LOCATION IN EMR *[facility] Plan: The pt may have a UTI or elevated ammonia causing his altered mental status, although it could be related to his protein-calorie malnutrition. *09/26 pn ([facility]) Assessment: Acute hypomagnesemia, hypokalemia, and hypophosphatemia, resolved. Altered mental status with failure to thrive, improved. *09/27 pn ([facility]) Subjective: Pts nurse states that he has been hallucinating, agitated and refusing any medications or VSs being taken. The pt agreed to have his VS taken and agreed to take his medications when I was at bedside. *[facility] Hosp. course: The pt was found to have a yeast UTI. The pt has a significant amount of neurological deficiencies secondary to yrs of alcohol abuse which includes blindness. The pt was talking, however, and following commands regularly. His nutrition had also improved. RISK FACTORS / RESULTS AND LOCATION IN EMR H&P 09/24 ([facility]) PMH: CAD, cardiac stents; HTN, COPD; alcohol abuse; severe PVD; Urinary retention; chronic hyponatremia. Assessment: R femur fx; Acute hypomagnesemia, hypokalemia, hypophosphatemia. Altered mental status with failure to thrive. HX recent toe necrosis, s/p amputation. 09/27 pn ([place]) Assessment: UTI, yeast, poa. TREATMENTS / RESULTS AND LOCATION IN EMR *H&P 09/24 ([facility]) Plan: We will send an ammonia, replace Johnson catheter, and send UA again. *09/27 pn ([facility]/[place]): Will supplement with Ensure to make sure pt gets adequate nutrition. *09/27 pn ([place]) Plan: Dietitian to add additional supplements. Continue fluconazole for total of 14 days. Replace potassium, phosphorus and magnesium. Oder 09/26-09/28: Diflucan 200mg po daily Thank you, Carmelita Gilbert, RN, BSN [email or web address] Cell This is a permanent part of the Medical Record [facility]
== END 2020-09-28 18:36 | disposition swing bed (61) | DRG 464 ==
LOC: ERS 10:45 → ERHOLD 13:30 → SJJU 09-26 00:37
PROVIDERS: ADMIT Surgery; ATTEND Surgery
PROC: 0QH634Z Insertion of Internal Fixation Device into Right Upper Femur, Percutaneous Approach (ICD-10-PCS; 2020-09-25)
PROC: 0JBQ0ZZ Excision of Right Foot Subcutaneous Tissue and Fascia, Open Approach (ICD-10-PCS; principal; 2020-09-26)
PROC: 0TPBX0Z Removal of Drainage Device from Bladder, External Approach (ICD-10-PCS; 2020-09-26)
DX: S72.141A Displaced intertrochanteric fracture of right femur, initial encounter for closed fracture (principal); G93.40 Encephalopathy, unspecified; E44.0 Moderate protein-calorie malnutrition; B37.49 Other urogenital candidiasis; Z20.828 Contact with and (suspected) exposure to other viral communicable diseases; W19.XXXA Unspecified fall, initial encounter; I25.10 Atherosclerotic heart disease of native coronary artery without angina pectoris; J43.9 Emphysema, unspecified; K21.9 Gastro-esophageal reflux disease without esophagitis; I10 Essential (primary) hypertension; F41.9 Anxiety disorder, unspecified; H54.8 Legal blindness, as defined in USA; F10.10 Alcohol abuse, uncomplicated; F17.210 Nicotine dependence, cigarettes, uncomplicated; I73.9 Peripheral vascular disease, unspecified; K25.9 Gastric ulcer, unspecified as acute or chronic, without hemorrhage or perforation; E83.39 Other disorders of phosphorus metabolism; E83.42 Hypomagnesemia; E87.6 Hypokalemia; Z88.0 Allergy status to penicillin; Z88.2 Allergy status to sulfonamides; Z88.8 Allergy status to other drugs, medicaments and biological substances; Z95.5 Presence of coronary angioplasty implant and graft; Z68.23 Body mass index [BMI] 23.0-23.9, adult; Z89.421 Acquired absence of other right toe(s)
CPT/HCPCS: 36415; 71045; 72170; 76000; 80048; 80053; 80307; 81003; 81015; 82140; 83605; 83690; 83735; 84100; 85025; 85610; 85730; 86850; 86900; 86901; 87086; 87635; 93005; 93010; 96374; 96375; C1713; G0390; J0360; J0690; J2270; J2405; J2704; J3010; J3475; J3490; J7050; S0028; U0003

== ENCOUNTER 2020-10-16 06:54 | Inpatient (IN) | payer MEDICARE ==
[2020-10-16 08:10] LABS: #Eosinphils 0.2 thou/uL (0.0-0.7); #Lymphocytes 1.5 thou/uL (1.20-3.40); #Monocytes 0.7 thou/uL (0.11-0.59); #Neutrophils 9.7 thou/uL (1.40-6.50); %Basophils 0.2 % (0.0-1.0); %Lymphocytes 12.3 % (21.0-51.0); %Monocytes 5.5 % (0.0-10.0); %Neutrophils 80.1 % (42.0-75.0); Hemoglobin 10.5 g/dL (14.0-18.0); Mean Corpuscular HGB CONC 31.9 g/dL (32.0-36.0); Mean Corpuscular Hemoglobin 32.2 pg (27.0-31.0); Mean Platelet Volume 7.4 fL (7.4-10.4); Platelet Count 341 thou/uL (130-400); RBC Distribution Width 13.7 % (11.5-14.5); Red Blood Cell (RBC) Count 3.27 mill/uL (4.70-6.10); White Blood Cell (WBC) Count 12.1 thou/uL (4.8-10.8)
[2020-10-16 08:33] LABS: ALT (SGPT) 45 U/L (8-55); AST (SGOT) 33 U/L (5-34); Albumin 3.6 g/dL (3.4-4.8); Alkaline Phosphatase 174 U/L (40-110); Anion Gap 18 mmol/L (10-20); BUN (Urea Nitrogen) 30 mg/dL (8.4-25.7); Bilirubin, Total 0.6 mg/dL (0.2-1.2); Calc. Creatinine Clearance 0 mL/min (70-130); Calcium 10.1 mg/dL (7.8-10.44); Carbon Dioxide 24 mmol/L (23-31); Chloride 102 mmol/L (98-107); Globulin 4.1 g/dL (2.4-3.5); Glucose 124 mg/dL (80-115); Potassium 4.4 mmol/L (3.5-5.1); Protein, Total 7.7 g/dL (5.8-8.1); Sodium 140 mmol/L (136-145)
[2020-10-16] MEDS ORDERED: Bupivacaine 0.25% HCL 30 ML VIAL ONE (08:58)
[2020-10-16] MEDS ORDERED: Lidocaine 2% PF 5 ML VIAL ONE (08:58)
[2020-10-16] MEDS ORDERED: Lidocaine 2% w/Epinephrine 1:200K 20 ML VIAL ONE (08:59)
[2020-10-16] MEDS ORDERED: Fentanyl 100 MCG/2 ML VIAL ONE (09:05)
[2020-10-16] MEDS ORDERED: Bupivacaine HCl 0.5%/Epinephrine 1:200,000/PF 30 ml Vial ONE (09:08)
[2020-10-16] MEDS ORDERED: Ondansetron PF 4 MG/2 ML Vial ONE (09:08)
[2020-10-16] MEDS ORDERED: Dexamethasone 20 MG/5 ML VIAL ONE (09:08)
[2020-10-16] MEDS ORDERED: Rocuronium Bromide 10 MG/ML (10ML VIAL) ONE (09:08)
[2020-10-16] MEDS ORDERED: Lidocaine 1% PF 5 ML VIAL ONE (09:08)
[2020-10-16] MEDS ORDERED: PROPOFOL 200 MG/20 ML VIAL ONE (09:08)
[2020-10-16] MEDS ORDERED: PHENYLEPHRINE-NS 100 MCG/ML 10 ML SYRINGE ONE (09:08)
[2020-10-16] MEDS ORDERED: ePHEDrine 50 MG/ML VIAL ONE (09:08)
[2020-10-16] MEDS ORDERED: Glycopyrrolate 0.2 MG/ML 5 ML SYRINGE ONE (09:08)
[2020-10-16] MEDS ORDERED: cefTRIAXone\\ROCEPHIN 1 GM VIAL ONE (09:11)
[2020-10-16] MEDS ORDERED: Sodium Chloride 0.9% 100 ML ONE (09:12)
[2020-10-16 09:14] LABS: SARS-CoV-2 NAA Rapid Test Not Detected (NotDetected)
[2020-10-16] MEDS ORDERED: Phenylephrine 10 MG/ML VIAL ONE (09:41)
[2020-10-16] MEDS ORDERED: Ondansetron HCl/PF 4 MG/2 ML Vial IVP PRN (11:31)
[2020-10-16] MEDS ORDERED: Promethazine HCl 25 MG/ML VIAL IM PRN ×2 (11:31→12:11)
[2020-10-16] MEDS ORDERED: Promethazine HCl 25 MG/ML VIAL SLOW IVP PRN (11:31)
[2020-10-16] MEDS ORDERED: Ondansetron PF 4 MG/2 ML Vial IVP PRN (12:11)
[2020-10-16] MEDS ORDERED: Morphine 2 MG/ML VIAL SLOW IVP PRN (12:11)
[2020-10-16] MEDS ORDERED: HYDROcodone/Acetaminophen 5/325 mg Tablet PO PRN (12:11)
[2020-10-16] MEDS ORDERED: Dextrose 50% Abboject 50 ML SYRINGE SLOW IVP PRN (12:11)
[2020-10-16] MEDS ORDERED: Dextrose 5% in Water 1,000 ML IV PRN (12:11)
[2020-10-16] MEDS ORDERED: Lisinopril 10 MG TAB PO SCH (13:30)
[2020-10-16] MEDS ORDERED: traMADol HCl 50 MG TAB PO PRN (14:36)
[2020-10-16] MEDS: D5 1/2 NS w/20 mEq KCL 1,000 ML IV SCH ×2 (15:55→23:29)
[2020-10-16] MEDS: HYDROcodone/Acetaminophen 5/325 mg Tablet PO PRN (16:28)
[2020-10-16] MEDS: Mometasone 200 MCG/Formoterol 5 MCG 120 PUFF INHALER INH SCH (18:53)
[2020-10-16] MEDS: buPROPion 75 MG TAB PO SCH (20:53)
[2020-10-16] MEDS: Docusate 100 MG CAP PO SCH (20:53)
[2020-10-16] MEDS: Metoprolol Tartrate 100 MG TAB PO SCH (20:54)
[2020-10-16] MEDS: Tamsulosin HCl 0.4 MG CAP PO SCH (20:54)
[2020-10-17] MEDS: D5 1/2 NS w/20 mEq KCL 1,000 ML IV SCH (01:19)
[2020-10-17 05:42] LABS: #Lymphocytes 1.5 thou/uL (1.20-3.40); #Monocytes 0.5 thou/uL (0.11-0.59); #Neutrophils 12.3 thou/uL (1.40-6.50); %Basophils 0.1 % (0.0-1.0); %Eosinophils 0.2 % (0.0-10.0); %Lymphocytes 10.4 % (21.0-51.0); %Monocytes 3.4 % (0.0-10.0); %Neutrophils 85.8 % (42.0-75.0); Hemoglobin 9.3 g/dL (14.0-18.0); Mean Corpuscular HGB CONC 32.5 g/dL (32.0-36.0); Mean Corpuscular Hemoglobin 32.6 pg (27.0-31.0); Mean Platelet Volume 7.5 fL (7.4-10.4); Platelet Count 290 thou/uL (130-400); RBC Distribution Width 13.7 % (11.5-14.5); Red Blood Cell (RBC) Count 2.85 mill/uL (4.70-6.10); White Blood Cell (WBC) Count 14.3 thou/uL (4.8-10.8)
[2020-10-17 06:05] LABS: Anion Gap 13 mmol/L (10-20); BUN (Urea Nitrogen) 25 mg/dL (8.4-25.7); Calc. Creatinine Clearance 0 mL/min (70-130); Calcium 8.9 mg/dL (7.8-10.44); Carbon Dioxide 21 mmol/L (23-31); Chloride 102 mmol/L (98-107); Glucose 167 mg/dL (80-115); Potassium 4.4 mmol/L (3.5-5.1); Sodium 132 mmol/L (136-145)
[2020-10-17] MEDS: HYDROcodone/Acetaminophen 5/325 mg Tablet PO PRN ×2 (06:54→18:36)
[2020-10-17] MEDS: Mometasone 200 MCG/Formoterol 5 MCG 120 PUFF INHALER INH SCH ×2 (08:35→18:26)
[2020-10-17] MEDS: buPROPion 75 MG TAB PO SCH ×2 (09:45→20:11)
[2020-10-17] MEDS: Saccharomyces boulardii 250 MG CAP PO SCH (09:46)
[2020-10-17] MEDS: Lisinopril 10 MG TAB PO SCH (09:46)
[2020-10-17] MEDS: Oxybutynin 5 MG TAB PO SCH (09:46)
[2020-10-17] MEDS: Polyethylene Glycol 3350 17 GM Packet PO SCH (09:46)
[2020-10-17] MEDS: Morphine 4 MG/ML VIAL SLOW IVP PRN ×2 (09:46→22:31)
[2020-10-17] MEDS: Docusate 100 MG CAP PO SCH ×2 (09:46→20:11)
[2020-10-17] MEDS: Metoprolol Tartrate 100 MG TAB PO SCH ×2 (09:46→20:11)
[2020-10-17] MEDS: cefTRIAXone\\ROCEPHIN 1 GM in Sodium Chloride 0.9% 100 ML IVPB SCH (09:47)
--- NOTE | 2020-10-17 13:58 | PDOC.OP ---
Operative Note - Operative Note Operative Note: PROCEDURE: Right below-knee amputation SURGEON: Ofelia Chapa M.D. DATE: 10/16/2020 PREOPERATIVE DIAGNOSIS: Right foot abscess and peripheral vascular disease POSTOPERATIVE DIAGNOSIS: Right foot abscess and peripheral vascular disease HISTORY: Patient is status post right second toe amputation for wet gangrene with nonhealing wound and exposed bone. He presented back to my clinic with worsening of the wound and a new obvious abscess draining out the plantar surface of his midfoot. I recommended below-knee amputation with possible above-knee amputation if he has a thick stricture at his knee since the patient was unable to straighten it in the clinic. He states that he has had trouble straightening his knee and hip ever since he broke his right hip a few weeks ago. He has not been ambulating on the leg since his fall. He initially refused amputation but on the day of surgery decided to proceed with amputation. PROCEDURE IN DETAIL: After informed consent was obtained and appropriate preoperative antibiotics administered, the patient was taken to the operating room and was placed in supine position and anesthesia was administered. Once the patient was under anesthesia the leg straightened easily and the knee was even able to be slightly hyperextended. There were no fixed contractures at the hip knee or ankle. The leg was prepped and draped in standard sterile fashion. A short anterior long posterior flap was measured out and marked on the skin. The skin was incised anteriorly and dissection carried down using electrocautery to the tibia which was cleared anteriorly. The periosteum was elevated proximally and a Gigli saw passed posteriorly. The tibia was transected using the Gigli saw at a level of couple centimeters proximal to the skin incision, angling upward anteriorly to avoid a sharp edge under the skin. The anterior tibial vessels were identified and clamped and ligated. Dissection was carried down to the fibula which was dissected free circumferentially. The periosteum was elevated proximally and rib elliott were used to transect the fibula at a level a few centimeters proximal to the tibial transection. The posterior tibial vessels were then dissected free, clamped and ligated. The posterior flap incisi on was made through the skin using a scalpel and then through subcutaneous tissues to the muscle using Bovie electrocautery. An amputation blade was placed behind the tibia and fibula and the leg amputated. Some bleeding vessels were clamped and ligated. The soleus was trimmed and the posterior flap muscle was trimmed to the appropriate length to allow closure without tension. The nerves were pulled down into the wound, ligated and allowed to retract into the soft tissues. Oozing from the muscle and the subcutaneous tissues was controlled with electrocautery. A bone rasp was used to smooth the edges of the tibia. The fibula was smoothed with rongeurs and the wound was irrigated and hemostasis verified. Muscular fascia was reapproximated over the stump using interrupted [id number] 2-0 Vicryl sutures. The subcutaneous tissues were reapproximated using 3-0 Vicryl sutures and the skin was closed with skin laurie. Xeroform gauze, Kerlix, and Miguel wrap were used to dress the amputation stump and the patient was placed in a knee immobilizer. The patient was taken to the recovery room in stable condition. There were no complications. ESTIMATED BLOOD LOSS: 150 mL SPECIMEN: Right leg
--- NOTE | 2020-10-17 14:06 | PDOC.GSPN ---
Surgery Progress Note: Subj - Subjective Narrative: Patient is a little agitated this afternoon. He states that he wants to go home and that he does not want to go to long-term. He is oriented only to self and year, stating that he is in "this little shack that you have" and that he does not know and does not care where it is. He states that his is in the room when she is not and that they went to see his daughter and her baby. He states that if he cannot go home he is willing to go stay with his mother. The nurse states that he has expressed hallucinations to her including a small [id number] dog in the room and that he has been oriented to self place and year but gets confused about whether he has had surgery or is going to have surgery. His and his nurse have both expressed that his confusion has gotten worse with each recent admission. The hospitalist has been by to see him today. Stump dressing is clean and in place and his knee is straight. He does have pain with manipulation of the leg but not nearly as much as preop. Blood pressure is a little up today. Hemoglobin has dropped about a point which is appropriate for intraoperative losses and hydration. Culture sent from clinic from his foot abscess are still pending. Assessment/plan: Status post right below-knee amputation doing well from a surgical standpoint. His mental status has worsened somewhat which is likely a combination of postanesthetic and infectious delirium along with his longstanding history of alcoholism. He had been in a [facility] for several weeks before this admission so I do not think he is withdrawing. I am unsure whether benzodiazepines would help or exacerbate his agitation. I will discuss this with the hospitalist. I am hopeful that his mental status will improve as he gets further out from his surgery and that he will be able to participate with physical therapy in a meaningful way and be a rehab candidate. Obviously he is not safe for discharge home at this point. Surgery Progress Note: Obj - Vital signs Vital signs: Vital Signs - Most Recent Temp Pulse Resp BP Pulse Ox 98.6 F 77 20 159/76 H 99 10/17/20 12:00 10/17/20 12:00 10/17/20 12:00 10/17/20 12:00 10/17/20 12:00 Surgery Progress Note: Results - Labs Result Diagrams: 10/17/20 05:20 10/17/20 05:20 Lab results: Laboratory Results - last 12 hr 10/17/20 10/17/20 05:20 05:20 WBC 14.3 H RBC 2.85 L Hgb 9.3 L Hct 28.6 L MCV 100.0 H MCH 32.6 H MCHC 32.5 RDW 13.7 Plt Count 290 MPV 7.5 Neutrophils % 85.8 H Lymphocytes % 10.4 L Monocytes % 3.4 Eosinophils % 0.2 Basophils % 0.1 Neutrophils # 12.3 H Lymphocytes # 1.5 Monocytes # 0.5 Eosinophils # 0.0 Basophils # 0.0 Sodium 132 L Potassium 4.4 Chloride 102 Carbon Dioxide 21 L Anion Gap 13 BUN 25 Creatinine 0.83 Estimated GFR (MDRD) Greater than 90 Glucose 167 H Calcium 8.9
[2020-10-17] MEDS ORDERED: Haloperidol Lactate 5 MG/ML VIAL SLOW IVP PRN (14:32)
--- NOTE | 2020-10-17 14:49 | PDOC.CONS ---
- Consultation REASON FOR CONSULTATION: Altered mental status/confusion/medical management Referring physicians: Dr. Osborne HISTORY OF PRESENT ILLNESS: The patient is unfortunate 65 years old gentleman who has significant past medical history of CAD with history of PCI, COPD, hypertension, PVD, history of alcohol abuse, who was admitted to surgery service for BKA. Apparently, patient has been dealing with his toe infection for sometime now as he has hx of PVD and hx tobacco abuse. He was status post right second toe amputation in 09/13/2020, and subsequently discharged to facility for continue ongoing wound care/wound vac. Unfortunately, his wound never healed and perhaps has worsened. He follow-up in surgical clinic, with worsening of the wound, evidenced with new abscess, and purulent drainage came out the plantar aspect of his midfoot. It was recommended to have a BKA by surgery given his these findings. He subsequently admitted under surgery service. Patient underwent right BKA on 10/16/2020. Patient tolerated procedure well. Postoperatively, rochelle ent was confused. Apparently, patient has been having this confusion for some time now per nursing staff whom took cares of him from previous admissions. It is appeared to be worsens every time he was admitted to the hospital. For that reason, hospitalist was consulted for further evaluations and management of his altered mental status. Patient was seen examined at bedside. Patient is alert and oriented x1. He was pleasantly confused; however, redirectable. He is not agitated at this point; however, nursing staff report that his mental status seemed to be worsened throughout the day. He had significant history of alcohol abuse, but had not been drinking recently since he [facility]. No fever or chills. Chart reviewed. He is currently on Rocephin empirically. Wound culture from clinic is pending. He has chronic indewelling catheter due neurogenic bladder, followed by urology. UA obtained, results pending. Discussed with referring physician, Dr. Chapa. Allergies Penicillins Allergy (Intermediate, Verified 08/23/20 12:09) Hives sulfamethoxazole [From Bactrim] Allergy (Verified 08/23/20 12:09) trimethoprim [From Bactrim] Adverse Reaction (Verified 08/23/20 12:09) Nausea Nausea and vomitting Home Medications: Medication Instructions Recorded Confirmed Type Omeprazole Magnesium [Prilosec] 20 mg PO DAILY 07/25/18 10/16/20 History Budesonide-Formoterol [Symbicort 1 puff INH BID 08/23/20 10/16/20 History 80-4.5] Aspirin Chewable 81 mg PO DAILY 10/16/20 10/16/20 History Cholecalciferol (Vitamin D3) 2,000 unit PO DAILY 10/16/20 10/16/20 History [Vitamin D] HYDROcodone Bit/APAP 5/325 [Roff 1 - 2 tab PO Q4HR PRN 10/16/20 10/16/20 History 5/325] Lisinopril [Zestril] 10 mg PO DAILY 10/16/20 10/16/20 History Metoprolol Tartrate 100 mg PO BID 10/16/20 10/16/20 History Oxybutynin Chloride [Oxybutynin 10 mg PO DAILY 10/16/20 10/16/20 History Chloride ER] buPROPion HCl [buPROPion HCl ER] 150 mg PO DAILY 10/16/20 10/16/20 History traMADol HCl [Tramadol HCl] 1 - 2 tab PO QID PRN 10/16/20 10/16/20 History ROS: Confused. However, complete review of systems have been assessed and discussed with the patient. Negative and positive pertinent symptoms noted in the HPI; ALL other systems are reviewed and negative. Past medical history: 1. CAD with history of PCI 2. COPD 3. Hypertension 4. Peripheral vascular disease 5. Alcohol abuse Past surgical history: Coronary artery stenting, bilateral angioplasty of the femoral vessel. Status post left BKA on 10/16/2020 Family history Significant for hypertension, gastric cancer. Social history: [facility]. Histories of smoking as well as heavy alcohol use, but none recently as he came home facility. PHYSICAL EXAM: General Appearance: Alert, confused, resting comfortably, no apparent distress, well developed/nourished. HEENT: Normocephalic/atraumatic, moist mucous membrane, normal ENT inspection, normal tones. PERRLA, no scleral icterus, normal conjunctiva Neck: Supple, normal inspection, no JVD Respiratory: Lungs are clear bilaterally, normal breath sounds, no accessory muscle use Cardiovascular: Regular rate, regular rhythm, no murmur, no rubs Abdomen: Soft, nontender, nondistended, normal bowel sounds, no organomegaly, no guarding no rebound Extremities: No clubbing, no cyanosis, no edema. Status post right BKA, dressing intact Psych/Mental Status: Normal affect, speech, non-pressured, AAO x 1 Neurologic: Cranial nerves II - XII grossly intact. No focal weakness Skin: Warm/Dry, Normal Color, no rashes LAB DATA: Laboratory Tests 10/16/20 10/16/20 10/16/20 07:01 07:53 07:53 WBC 12.1 H RBC 3.27 L Hgb 10.5 L Hct 32.9 L MCV 101.0 H MCH 32.2 H MCHC 31.9 L RDW 13.7 Plt Count 341 MPV 7.4 Neutrophils % 80.1 H Lymphocytes % 12.3 L Monocytes % 5.5 Eosinophils % 2.0 Basophils % 0.2 Neutrophils # 9.7 H Lymphocytes # 1.5 Monocytes # 0.7 H Eosinophils # 0.2 Basophils # 0.0 Sodium 140 Potassium 4.4 Chloride 102 Carbon Dioxide 24 Anion Gap 18 BUN 30 H Creatinine 1.05 Estimated GFR (MDRD) 71 Glucose 124 H Calcium 10.1 Total Bilirubin 0.6 AST 33 ALT 45 Alkaline Phosphatase 174 H Serum Total Protein 7.7 Albumin 3.6 Globulin 4.1 H Albumin/Globulin Ratio 0.9 L SARS-CoV-2 Rap RNA(RT-PCR) Not Detected 10/17/20 10/17/20 05:20 05:20 WBC 14.3 H RBC 2.85 L Hgb 9.3 L Hct 28.6 L MCV 100.0 H MCH 32.6 H MCHC 32.5 RDW 13.7 Plt Count 290 MPV 7.5 Neutrophils % 85.8 H Lymphocytes % 10.4 L Monocytes % 3.4 Eosinophils % 0.2 Basophils % 0.1 Neutrophils # 12.3 H Lymphocytes # 1.5 Monocytes # 0.5 Eosinophils # 0.0 Basophils # 0.0 Sodium 132 L Potassium 4.4 Chloride 102 Carbon Dioxide 21 L Anion Gap 13 BUN 25 Creatinine 0.83 Estimated GFR (MDRD) Greater than 90 Glucose 167 H Calcium 8.9 Total Bilirubin AST ALT Alkaline Phosphatase Serum Total Protein Albumin Globulin Albumin/Globulin Ratio SARS-CoV-2 Rap RNA(RT-PCR) ASSESSMENTS/PLAN: The patient is unfortunate 65 years old gentleman who has significant past medical history of CAD with history of PCI, COPD, hypertension, PVD, history of alcohol abuse, who was admitted to surgery service for worsened right foot infection, subsequently underwent BKA on 10/16/20. Pt tolerated procedure well. Post operatively, pt was developed delirium with worsening confusion. Hospitalist service was consulted for further evaluation and mgt. Altered Mental Status - likely multifactorial including infections and recent surgery. However, his confusion appears to be ongoing even before this admission. I'm suspecting that he has underlying alcohol related dementia now compounded with recurrent "insults" with chronic infection and delirium d/t recurrent admission. I doubt alcohol withdrawal since pt came from SNF and has not been drinking recently. Chart reviewed, CT done on 07/30/20 showed chronic vascular changes otherwise unremarkable. Home Medications reviewed. Will continue with diligent workup to rule out reversible causes as below: --rule out infection: follow wound culture from clinic, and adjust abx if necessary. Check UA, UCx, and Blood Culture to rule out bacteremia given chronic infection. --check Vit B12/Folate/Vit B6/TSH level and RPR level. CMP and Ammonia level given long history of alcohol use. --Start MVI infusion with banana bag daily x 3 --Consider MRI brain to r/o CVA and intracranial lesions/chronic SDH although I doubt given nonfocal findings and lack of lateral signs/symptoms --Start scheduled Seroquel. PRN low dose Haldol for agitations. Would avoid benzodiazepines if possible as it can worsen his confusions. Minimize narcotics as much as possible. --Continue with supportive cares, and will make further recommendations as his hospital course warranted. --Consider EEG/Neuro eval Right Foot abscess in setting of severe PVD - s/p BKA --continue routine post-op cares as per surgery. PT eval Macrocytic anemia, chronic superimposed with acute blood loss anemia --check Vit B12/folate/iron profile. No role of transfusion. Monitor CBC CAD with hx PCI --resume home meds HTN, essential --cont BB/ACEi COPD --cont Duonebs prn for sobw --counseled smoking cessation Alcohol Abuse --none recently since pt came from skilled facility --start MVI, follow clinically. Counseled. DVT ppx: will defer to surgery to start on AC for DVT ppx when deem appropriate GI ppx: PPI Code Status: Full Anticipated Dispo: SNF versus rehab I would like to thanks, Dr. Bradley for allowing us participate in the cares of this pleasant gentleman. Will follow.
[2020-10-17 15:57] LABS: ALT (SGPT) 81 U/L (8-55); AST (SGOT) 118 U/L (5-34); Albumin 3.4 g/dL (3.4-4.8); Alkaline Phosphatase 170 U/L (40-110); Anion Gap 14 mmol/L (10-20); BUN (Urea Nitrogen) 17 mg/dL (8.4-25.7); Bilirubin, Total 0.3 mg/dL (0.2-1.2); Calc. Creatinine Clearance 0 mL/min (70-130); Calcium 9.6 mg/dL (7.8-10.44); Carbon Dioxide 23 mmol/L (23-31); Chloride 100 mmol/L (98-107); Globulin 4.5 g/dL (2.4-3.5); Glucose 117 mg/dL (80-115); Potassium 3.6 mmol/L (3.5-5.1); Protein, Total 7.9 g/dL (5.8-8.1); Sodium 133 mmol/L (136-145)
[2020-10-17] MEDS: Multivitamins, Adult 10 ML, Folic Acid 1 MG, Thiamine HCl 100 MG in Dextrose 5 %-0.45 %... IV SCH (16:37)
[2020-10-17 16:53] LABS: Bacteria/HPF None Seen HPF (None Seen); Bilirubin Negative (Negative); Blood, Urine 3+ (Negative); Clarity Turbid (Clear); Glucose, Urine (Dipstick) Normal (Negative); Ketone, Urine Negative (Negative); Leukocyte 25 Leu/uL (Negative); Nitrite Negative (Negative); Protein, Urine (Dipstick) 20 mg/dL (Neg-Trace); RBC/HPF Greater than 50 HPF (0-3); Specific Gravity, Urine 1.017 (1.002-1.036); Squamous Epithelial None Seen HPF (0-3); Urobilinogen Normal mg/dL (Less than 2)
[2020-10-17 17:03] LABS: Syphilis Antibody Nonreactive (Nonreactive); Syphilis Antibody Index 0.05 S/CO (<1.00 Non-Reactive)
[2020-10-17 17:10] LABS: Thyroid Stimulating Hormone 8.7405 uIU/mL (0.35-4.94)
[2020-10-17 17:18] LABS: Urine Culture Reflex Yes Yes
[2020-10-17] MEDS: Tamsulosin HCl 0.4 MG CAP PO SCH (20:11)
[2020-10-18 05:41] LABS: Hemoglobin A1c 5.2 % (4.0-6.0)
[2020-10-18 05:43] LABS: #Eosinphils 0.2 thou/uL (0.0-0.7); #Lymphocytes 1.6 thou/uL (1.20-3.40); #Monocytes 0.8 thou/uL (0.11-0.59); #Neutrophils 9.6 thou/uL (1.40-6.50); %Basophils 0.1 % (0.0-1.0); %Eosinophils 1.3 % (0.0-10.0); %Lymphocytes 13.4 % (21.0-51.0); %Monocytes 6.6 % (0.0-10.0); %Neutrophils 78.6 % (42.0-75.0); Hemoglobin 9.6 g/dL (14.0-18.0); Mean Corpuscular HGB CONC 32.2 g/dL (32.0-36.0); Mean Corpuscular Hemoglobin 31.8 pg (27.0-31.0); Mean Corpuscular Volume 98.7 fL (78.0-98.0); Mean Platelet Volume 7.4 fL (7.4-10.4); Platelet Count 293 thou/uL (130-400); RBC Distribution Width 13.6 % (11.5-14.5); Red Blood Cell (RBC) Count 3.01 mill/uL (4.70-6.10); White Blood Cell (WBC) Count 12.2 thou/uL (4.8-10.8)
[2020-10-18 05:44] LABS: Reticulocyte Count 1.9 % (0.5-1.5)
[2020-10-18 05:59] LABS: Anion Gap 13 mmol/L (10-20); BUN (Urea Nitrogen) 13 mg/dL (8.4-25.7); Calc. Creatinine Clearance 0 mL/min (70-130); Calcium 9.3 mg/dL (7.8-10.44); Carbon Dioxide 23 mmol/L (23-31); Chloride 97 mmol/L (98-107); Glucose 123 mg/dL (80-115); Iron 25 ug/dL (65-175); Iron Binding Capacity, Total 199 mcg/dL (261-462); Magnesium 1.5 mg/dL (1.6-2.6); Potassium 3.7 mmol/L (3.5-5.1); Sodium 129 mmol/L (136-145)
[2020-10-18] MEDS: Mometasone 200 MCG/Formoterol 5 MCG 120 PUFF INHALER INH SCH ×2 (08:10→19:18)
[2020-10-18] MEDS: buPROPion 75 MG TAB PO SCH (08:43)
[2020-10-18] MEDS: Oxybutynin 5 MG TAB PO SCH (08:43)
[2020-10-18] MEDS: cefTRIAXone\\ROCEPHIN 1 GM in Sodium Chloride 0.9% 100 ML IVPB SCH (08:43)
[2020-10-18] MEDS: Metoprolol Tartrate 100 MG TAB PO SCH ×2 (08:43→22:01)
[2020-10-18] MEDS: Polyethylene Glycol 3350 17 GM Packet PO SCH (08:43)
[2020-10-18] MEDS: Docusate 100 MG CAP PO SCH ×2 (08:43→22:01)
[2020-10-18] MEDS: Saccharomyces boulardii 250 MG CAP PO SCH (08:43)
[2020-10-18] MEDS: Lisinopril 10 MG TAB PO SCH (08:44)
[2020-10-18] MEDS: HYDROcodone/Acetaminophen 5/325 mg Tablet PO PRN ×2 (10:17→22:01)
[2020-10-18] MEDS: Multivitamins, Adult 10 ML, Folic Acid 1 MG, Thiamine HCl 100 MG in Dextrose 5 %-0.45 %... IV SCH (14:20)
[2020-10-18] MEDS ORDERED: Magnesium Sulfate 4 GM in Sodium Chloride 0.9% 250 ML 250 ML IVPB SCH (16:00)
[2020-10-18] MEDS ORDERED: Multivitamins, Adult 10 ML, Folic Acid 1 MG, Thiamine HCl 100 MG in Dextrose 5 % And 0.... IV SCH (16:00)
--- NOTE | 2020-10-18 16:04 | PDOC.HOSPP ---
- Subjective Subjective: Patient was seen examined at bedside this morning. No acute events overnight. Patient appears to be somewhat moresomnolence than he was yesterday. However, he is alert and oriented x3 on my exam. He responded to questions appropriately. Labs review, his TSH was elevated. LFT was elevated due hx of alcohol abuse. Vitamin B12 was normal. Mag slightly low currently being repleted. His sodium level has been steadily trending down due to hypotonic saline. This was normal on admission. His iron is slightly low, retic count is appropriately elevated. we have started him on supplemental iron. I have discussed with pharmacy to change hypotonic to D5NS for his banana bag. Postoperative pain is tolerable at this time. No fever. UA is positive, patient currently is on empiric IV antibiotic with Rocephin. - Objective Vital Signs & Weight: Vital Signs (12 hours) Temp Pulse Resp BP BP Pulse Ox 10/18/20 11:54 97.6 F 83 14 109/68 97 10/18/20 11:06 117/75 10/18/20 08:38 98.0 F 80 14 140/62 95 I&O: 10/17/20 10/18/20 10/19/20 06:59 06:59 06:59 Intake Total 2720 1700 Output Total 900 2225 Balance 1820 -525 Result Diagrams: 10/18/20 05:12 10/18/20 05:12 Radiology Reviewed by me: Yes EKG Reviewed by me: Yes Hospitalist ROS - Medication Medications: Active Medications Generic Name Dose Route Start Last Admin Trade Name Freq PRN Reason Stop Dose Admin Hydrocodone Bitart/Acetaminophen 1 tab 10/16/20 12:11 10/18/20 10:17 Hydrocodone/Acetaminophen 5/325 Mg Tablet PO 1 tab Q4H PRN Administration Severe Pain (7-10) Bupropion HCl 150 mg 10/16/20 21:00 10/18/20 08:43 Bupropion 75 Mg Tab PO 150 mg BID YAMILA Administration Docusate Sodium 100 mg 10/16/20 21:00 10/18/20 08:43 Docusate 100 Mg Cap PO 100 mg BID YAMILA Administration Ceftriaxone Sodium 1 gm/ 100 mls @ 200 mls/hr 10/17/20 09:00 10/18/20 08:43 Sodium Chloride IVPB 100 mls Q24HR YAMILA Administration Lisinopril 10 mg 10/17/20 09:00 10/18/20 08:44 Lisinopril 10 Mg Tab PO 10 mg DAILY YAMILA Administration Metoprolol Tartrate 100 mg 10/16/20 21:00 10/18/20 08:43 Metoprolol Tartrate 100 Mg Tab PO 100 mg BID YAMILA Administration Mometasone Furoate/Formoterol Fumar 1 puff 10/16/20 18:30 10/18/20 08:10 Mometasone 200 Mcg/Formoterol 5 Mcg 120 Puff Inhaler INH 1 puff BID-RT YAMILA Administration Morphine Sulfate 4 mg 10/16/20 12:11 10/17/20 22:31 Morphine 4 Mg/Ml Vial SLOW IVP 4 mg Q2H PRN Administration Severe Breakthrough Pain Oxybutynin Chloride 10 mg 10/17/20 09:00 10/18/20 08:43 Oxybutynin 5 Mg Tab PO 10 mg DAILY YAMILA Administration Pantoprazole Sodium 40 mg 10/17/20 09:00 10/18/20 08:43 Pantoprazole 40 Mg Tab PO 40 mg DAILY YAMILA Administration Polyethylene Glycol 17 gm 10/17/20 09:00 10/18/20 08:43 Polyethylene Glycol 3350 17 Gm Packet PO 17 gm DAILY YAMILA Administration Saccharomyces Boulardii 250 mg 10/17/20 09:00 10/18/20 08:43 Saccharomyces Boulardii 250 Mg Cap PO 250 mg DAILY YAMILA Administration Tamsulosin HCl 0.4 mg 10/16/20 21:00 10/17/20 20:11 Tamsulosin Hcl 0.4 Mg Cap PO 0.4 mg HS YAMILA Administration - Exam General Appearance: NAD Eye: PERRL ENT: normocephalic atraumatic Neck: supple Heart: RRR Respiratory: CTAB Gastrointestinal: soft Skin: normal turgor Neurological: cranial nerve grossly intact Musculoskeletal: normal tone Musculoskeletal - other findings: s/p Right BKA Psychiatric: somnolent Hosp A/P - Plan The patient is unfortunate 65 years old gentleman who has significant past medical history of CAD with history of PCI, COPD, hypertension, PVD, histor y of alcohol abuse, who was admitted to surgery service for worsened right foot infection, subsequently underwent BKA on 10/16/20. Pt tolerated procedure well. Post operatively, pt was developed delirium with worsening confusion. Hospitalist service was consulted for further evaluation and mgt. Altered Mental Status - likely multifactorial including infections and recent s urgery. However, his confusion appears to be ongoing even before this admission. I'm suspecting that he has underlying alcohol related dementia now compounded with recurrent "insults" with chronic infection and delirium d/t recurrent admission. I doubt alcohol withdrawal since pt came from SNF and has not been drinking recently. Chart reviewed, CT done on 07/30/20 showed chronic vascular changes otherwise unremarkable. Home Medications reviewed. Will continue with diligent workup to rule out reversible causes as below: --rule out infection: follow wound culture from clinic, and adjust abx if n ecessary. Check UA, UCx, and Blood Culture to rule out bacteremia given chronic infection. --check Vit B12/Folate/Vit B6/TSH level and RPR level. CMP and Ammonia level given long history of alcohol use. --Start MVI infusion with banana bag daily x 3 --Consider MRI brain to r/o CVA and intracranial lesions/chronic SDH although I doubt given nonfocal findings and lack of lateral signs/symptoms --Start scheduled Seroquel. PRN low dose Haldol for agitations. Would avoid benzodiazepines if possible as it can worsen his confusions. Minimize narcotics as much as possible. --Continue with supportive cares, and will make further recommendations as his hospital course warranted. --Consider EEG/Neuro eval Right Foot abscess in setting of severe PVD - s/p BKA --continue routine post-op cares as per surgery. PT eval Macrocytic anemia, chronic superimposed with acute blood loss anemia --check Vit B12/folate/iron profile. No role of transfusion. Monitor CBC CAD with hx PCI --resume home meds HTN, essential --cont BB/ACEi COPD --cont Duonebs prn for sobw --counseled smoking cessation Alcohol Abuse --none recently since pt came from skilled facility --start MVI, follow clinically. Counseled. DVT ppx: will defer to surgery to start on AC for DVT ppx when deem appropriate GI ppx: PPI Code Status: Full Anticipated Dispo: SNF versus rehab 10/18/2020 Decrease Seroquel to HS as he is somnolent this morning cont Rocephin. Follow all active cultures add iron for iron def anemia. Folate pending. check FT3 and FT4, likely will need supplemental thyroxine Mild Hyponatremia d/t hypotonic saline and poor solute intake. His TSH elevated, but Na was normal on admission. D/w pharmacy to change premix banana bag in D5NS. Follow BMP UTI a/w chronic indwelling villagran catheter (poa) - cont IV abx Minimize narcotics replace Mg cont routine post op cares as per surgery - PT eval. encourage IS hold off imaging study check Acute Hep panel - likely d/t alcoholic hepatitis. Liver US in 11/2019 showed slightly enlarged without mentioned of cirrhosis. NH3 wnl. AM labs will follow
[2020-10-18] MEDS ORDERED: Haloperidol Lactate 5 MG/ML VIAL SLOW IVP PRN (18:01)
[2020-10-18] MEDS: Tamsulosin HCl 0.4 MG CAP PO SCH (22:01)
[2020-10-18] MEDS: Haloperidol Lactate 5 MG/ML VIAL SLOW IVP PRN (23:42)
[2020-10-19] MEDS: HYDROcodone/Acetaminophen 5/325 mg Tablet PO PRN ×3 (05:23→22:37)
[2020-10-19 05:59] LABS: #Eosinphils 0.3 thou/uL (0.0-0.7); #Lymphocytes 1.5 thou/uL (1.20-3.40); %Basophils 0.1 % (0.0-1.0); %Eosinophils 2.5 % (0.0-10.0); %Lymphocytes 12.7 % (21.0-51.0); %Monocytes 8.1 % (0.0-10.0); %Neutrophils 76.6 % (42.0-75.0); Hemoglobin 9.1 g/dL (14.0-18.0); Mean Corpuscular HGB CONC 34.3 g/dL (32.0-36.0); Mean Corpuscular Volume 96.2 fL (78.0-98.0); Mean Platelet Volume 7.2 fL (7.4-10.4); Platelet Count 291 thou/uL (130-400); RBC Distribution Width 13.9 % (11.5-14.5); Red Blood Cell (RBC) Count 2.74 mill/uL (4.70-6.10); White Blood Cell (WBC) Count 11.8 thou/uL (4.8-10.8)
[2020-10-19 06:18] LABS: ALT (SGPT) 76 U/L (8-55); AST (SGOT) 108 U/L (5-34); Albumin 3.1 g/dL (3.4-4.8); Alkaline Phosphatase 140 U/L (40-110); Anion Gap 12 mmol/L (10-20); BUN (Urea Nitrogen) 13 mg/dL (8.4-25.7); Bilirubin, Total 0.5 mg/dL (0.2-1.2); Calc. Creatinine Clearance 0 mL/min (70-130); Calcium 8.8 mg/dL (7.8-10.44); Carbon Dioxide 24 mmol/L (23-31); Chloride 98 mmol/L (98-107); Globulin 3.8 g/dL (2.4-3.5); Glucose 125 mg/dL (80-115); Magnesium 2.1 mg/dL (1.6-2.6); Protein, Total 6.9 g/dL (5.8-8.1); Sodium 130 mmol/L (136-145)
[2020-10-19 06:34] LABS: Free T4 (Free Thyroxine) 1.16 ng/dL (0.70-1.48)
[2020-10-19 06:49] LABS: HBCM Index 0.06 S/CO (0-0.79); HBSAg Index 0.18 S/CO (0-0.99); Hep A IgM AB Non-Reactive (NonReactive); Hep A IgM S/CO 0.12 S/CO (0-0.79); Hep B Surf Ag Non-Reactive S/CO (NonReactive); Hep C IgG Ab Non-Reactive (NonReactive); Hep C Index 0.16 S/CO (0-0.79); Hepatitis B Core IgM Abs Non-Reactive (NonReactive)
[2020-10-19] MEDS: Mometasone 200 MCG/Formoterol 5 MCG 120 PUFF INHALER INH SCH ×2 (07:27→19:46)
[2020-10-19] MEDS: Oxybutynin 5 MG TAB PO SCH (08:39)
[2020-10-19] MEDS: Saccharomyces boulardii 250 MG CAP PO SCH (08:39)
[2020-10-19] MEDS: Metoprolol Tartrate 100 MG TAB PO SCH ×2 (08:40→19:55)
[2020-10-19] MEDS: Ferrous Gluconate 324 MG TAB PO SCH (08:40)
[2020-10-19] MEDS: Lisinopril 10 MG TAB PO SCH (08:40)
[2020-10-19] MEDS: Docusate 100 MG CAP PO SCH ×2 (08:40→19:54)
[2020-10-19] MEDS: Polyethylene Glycol 3350 17 GM Packet PO SCH (08:41)
[2020-10-19] MEDS: cefTRIAXone\\ROCEPHIN 1 GM in Sodium Chloride 0.9% 100 ML IVPB SCH (09:27)
[2020-10-19 10:15] VITALS: BMI 23.7
--- NOTE | 2020-10-19 14:32 | PDOC.HOSPP ---
- Subjective Encounter Date: 10/19/20 (f/u encehalopathy) Encounter Time: 14:30 Subjective: The patient is a 65 years old gentleman who has significant past medical history of CAD with history of PCI, COPD, hypertension, PVD, history of alcohol abuse, who was admitted to surgery service for worsened right foot infection, subsequently underwent BKA on 10/16/20. Pt tolerated procedure well. Post operatively, pt was developed delirium with worsening confusion. Hospitalist service was consulted for further evaluation and mgt. Pt today is oriented to person, but not place/time/situation. He states he can see a foot and doesn't know why it was left like that. He denies any com plaints. He reports there are people around him to include in bed with him. - Objective Vital Signs & Weight: Vital Signs (12 hours) Temp Pulse Resp BP BP Pulse Ox 10/19/20 11:11 98.1 F 74 20 118/69 100 10/19/20 08:40 146/87 H 10/19/20 07:44 98.0 F 82 16 146/87 H 98 10/19/20 04:00 97.6 F 78 16 121/67 99 Weight Weight 170 lb I&O: 10/18/20 10/19/20 10/20/20 06:59 06:59 06:59 Intake Total 1700 2180 Output Total 2225 1675 775 Balance -525 505 -775 Result Diagrams: 10/19/20 05:44 10/19/20 05:44 Hospitalist ROS - Medication Medications: Active Medications Generic Name Dose Route Start Last Admin Trade Name Fredq PRN Reason Stop Dose Admin Hydrocodone Bitart/Acetaminophen 1 tab 10/16/20 12:11 10/19/20 11:09 Hydrocodone/Acetaminophen 5/325 Mg Tablet PO 1 tab Q4H PRN Administration Severe Pain (7-10) Bupropion HCl 150 mg 10/16/20 21:00 10/18/20 08:43 Bupropion 75 Mg Tab PO 150 mg BID YAMILA Administration Docusate Sodium 100 mg 10/16/20 21:00 10/19/20 08:40 Docusate 100 Mg Cap PO Not Given BID YAMILA Ferrous Gluconate 324 mg 10/19/20 08:00 10/19/20 08:40 Ferrous Gluconate 324 Mg Tab PO 324 mg QAM-WM YAMILA Administration Haloperidol Lactate 2 mg 10/18/20 23:35 10/18/20 23:42 Haloperidol Lactate 5 Mg/Ml Vial SLOW IVP 2 mg Q4H PRN Administration Agitation Ceftriaxone Sodium 1 gm/ 100 mls @ 200 mls/hr 10/17/20 09:00 10/19/20 09:27 Sodium Chloride IVPB 100 mls Q24HR YAMILA Administration Multivitamins 10 ml/ Folic 1,011.2 mls @ 75 mls/hr 10/18/20 16:00 10/18/20 18:38 Acid 1 mg/ Thiamine HCl 100 mg IV 1,011.2 mls / Dextrose/Sodium Chloride Q24HR YAMILA Administration Lisinopril 10 mg 10/17/20 09:00 10/19/20 08:40 Lisinopril 10 Mg Tab PO 10 mg DAILY YAMILA Administration Metoprolol Tartrate 100 mg 10/16/20 21:00 10/19/20 08:40 Metoprolol Tartrate 100 Mg Tab PO 100 mg BID YAMILA Administration Mometasone Furoate/Formoterol Fumar 1 puff 10/16/20 18:30 10/19/20 07:27 Mometasone 200 Mcg/Formoterol 5 Mcg 120 Puff Inhaler INH 1 puff BID-RT YAMILA Administration Morphine Sulfate 4 mg 10/16/20 12:11 10/17/20 22:31 Morphine 4 Mg/Ml Vial SLOW IVP 4 mg Q2H PRN Administration Severe Breakthrough Pain Oxybutynin Chloride 10 mg 10/17/20 09:00 10/19/20 08:39 Oxybutynin 5 Mg Tab PO 10 mg DAILY YAMILA Administration Pantoprazole Sodium 40 mg 10/17/20 09:00 10/19/20 08:40 Pantoprazole 40 Mg Tab PO 40 mg DAILY YAMILA Administration Polyethylene Glycol 17 gm 10/17/20 09:00 10/19/20 08:41 Polyethylene Glycol 3350 17 Gm Packet PO Not Given DAILY YAMILA Quetiapine Fumarate 25 mg 10/18/20 21:00 10/18/20 22:01 Quetiapine Fumarate 25 Mg Tab PO 25 mg HS YAMILA Administration Saccharomyces Boulardii 250 mg 10/17/20 09:00 10/19/20 08:39 Saccharomyces Boulardii 250 Mg Cap PO 250 mg DAILY YAMILA Administration Tamsulosin HCl 0.4 mg 10/16/20 21:00 10/18/20 22:01 Tamsulosin Hcl 0.4 Mg Cap PO 0.4 mg HS YAMILA Administration Tramadol HCl 100 mg 10/16/20 14:36 10/19/20 08:39 Tramadol Hcl 50 Mg Tab PO 100 mg Q4H PRN Administration Severe Pain (7-10) - Exam General Appearance: NAD Heart: RRR, no murmur Respiratory: CTAB, no wheezes, no rales, no ronchi Gastrointestinal: soft, non-tender, non-distended, normal bowel sounds Extremities: no cyanosis, no clubbing, no edema Extremities - other findings: right BKA Psychiatric - other findings: oriented x 1 Hosp A/P (1) Encephalopathy Code(s): G93.40 - ENCEPHALOPATHY, UNSPECIFIED Status: Acute (2) S/P BKA (below knee amputation) Code(s): Z89.519 - ACQUIRED ABSENCE OF UNSPECIFIED LEG BELOW KNEE Status: Acute Qualifiers: Laterality: right Qualified Code(s): Z89.511 - Acquired absence of right leg below knee (3) Hyponatremia Code(s): E87.1 - HYPO-OSMOLALITY AND HYPONATREMIA Status: Acute (4) Alcoholism Code(s): F10.20 - ALCOHOL DEPENDENCE, UNCOMPLICATED Status: Chronic (5) CAD (coronary artery disease) Code(s): I25.10 - ATHSCL HEART DISEASE OF [place] CORONARY ARTERY W/O ANG PCTRS Status: Chronic (6) COPD (chronic obstructive pulmonary disease) Status: Chronic (7) PAD (peripheral artery disease) Code(s): I73.9 - PERIPHERAL VASCULAR DISEASE, UNSPECIFIED Status: Chronic - Plan Altered Mental Status - Hallucinations Likely multifactorial given hx of alcohol abuse and possible underlying dementia, recent surgery. Labs checked - normal ammonia, tsh mildly elevated with normal free t4/t3 (will need outpatient follow-up). Cultures negative so far - Seroquel at night, prn haldol - Addendum - contacted by RN at 17:30 that pt is agitated and there was no response to haldol. I ordered low dose prn ativan Right Foot abscess in setting of severe PVD - s/p BKA - continue routine post-op cares as per surgery. PT eval Macrocytic anemia, chronic superimposed with acute blood loss anemia - monitor, vit b12/folate are normal - low iron but elevated ferritin - continue iron replacement CAD with hx PCI --resume home meds HTN, essential --cont BB/ACEi COPD --cont Duonebs prn for sob Alcohol Abuse History - d/c IV multivitamin and start oral replacement with mvi and thiamine Hyponatremia - d/c IV multivitamin and monitor Chronic indwelling villagran - continue monitoring UOP Resume home bupropion dose - confirmed with chart DVT ppx: per General Surgery GI ppx: not indicated, taking PO Code Status: Full Anticipated Dispo: SNF versus rehab when mental status clears and pt can cooperate with care
[2020-10-19] MEDS ORDERED: Thiamine 100 MG TAB PO SCH (14:45)
[2020-10-19] MEDS: Haloperidol Lactate 5 MG/ML VIAL SLOW IVP PRN ×2 (15:25→21:09)
[2020-10-19] MEDS: Lorazepam 2 MG/ML VIAL SLOW IVP PRN (17:37)
--- NOTE | 2020-10-19 18:09 | PRG ---
DATE OF SERVICE: 10/19/2020 SUBJECTIVE: I am seeing Mr. Castellanos on behalf of Dr. Chapa. The patient underwent right [id number]-sen-dniu amputation on 10/16/[address] Chapa. This morning, he is awake and alert. I have seen him with his nurse at bedside. He is not agitated at this morning and is less impulsive. He is tolerating diet. OBJECTIVE: VITAL SIGNS: Blood pressure 118/69, pulse 74, respiratory rate is 20, temperature 98.1 degrees Fahrenheit, oxygen saturation 100% on room air. The BKA dry dressing was removed. The wound edges remain intact. There appears to be some underlying hematoma in the wound without any active bleeding present. The stump appears viable. Dressing was replaced, and extremity was placed in a knee immobilizer. LABORATORY FINDINGS: Today include a CBC with 11,800 white blood cells, hemoglobin and hematocrit remain stable at 9.1 and 26.4 respectively. The platelet count is 291,000. Metabolic profile; sodium is 130, it was normal on 10/16/2020 with a sodium of 140. Potassium is 4.0, chloride is 98, bicarb is 24, BUN 13, creatinine 0.75, glucose 125, magnesium is 2.1. IMPRESSION: 1. Postoperative day #3, status post right [id number] amputation, viable stump. 2. Acute hyponatremia. PLAN: 1. We will decrease free water intake. 2. We will also apply stump check cashier tomorrow. Job ID: [id number]
[2020-10-19] MEDS: Tamsulosin HCl 0.4 MG CAP PO SCH (19:54)
[2020-10-20] MEDS: Haloperidol Lactate 5 MG/ML VIAL SLOW IVP PRN (03:57)
[2020-10-20 06:16] LABS: #Eosinphils 0.3 thou/uL (0.0-0.7); #Lymphocytes 1.4 thou/uL (1.20-3.40); #Monocytes 0.9 thou/uL (0.11-0.59); %Basophils 0.1 % (0.0-1.0); %Eosinophils 2.7 % (0.0-10.0); %Lymphocytes 10.7 % (21.0-51.0); %Monocytes 7.2 % (0.0-10.0); %Neutrophils 79.4 % (42.0-75.0); Hemoglobin 8.9 g/dL (14.0-18.0); Mean Corpuscular HGB CONC 33.2 g/dL (32.0-36.0); Mean Corpuscular Hemoglobin 31.6 pg (27.0-31.0); Mean Corpuscular Volume 95.2 fL (78.0-98.0); Mean Platelet Volume 7.5 fL (7.4-10.4); Platelet Count 284 thou/uL (130-400); RBC Distribution Width 13.8 % (11.5-14.5); White Blood Cell (WBC) Count 12.6 thou/uL (4.8-10.8)
[2020-10-20 06:37] LABS: ALT (SGPT) 70 U/L (8-55); AST (SGOT) 100 U/L (5-34); Albumin 3.2 g/dL (3.4-4.8); Alkaline Phosphatase 147 U/L (40-110); Anion Gap 13 mmol/L (10-20); BUN (Urea Nitrogen) 11 mg/dL (8.4-25.7); Bilirubin, Total 0.6 mg/dL (0.2-1.2); Calc. Creatinine Clearance 111 mL/min (70-130); Calcium 9.1 mg/dL (7.8-10.44); Carbon Dioxide 23 mmol/L (23-31); Chloride 96 mmol/L (98-107); Globulin 3.9 g/dL (2.4-3.5); Glucose 109 mg/dL (80-115); Magnesium 1.8 mg/dL (1.6-2.6); Phosphorus 3.4 mg/dL (2.3-4.7); Potassium 3.5 mmol/L (3.5-5.1); Protein, Total 7.1 g/dL (5.8-8.1); Sodium 128 mmol/L (136-145)
[2020-10-20] MEDS: Mometasone 200 MCG/Formoterol 5 MCG 120 PUFF INHALER INH SCH ×2 (08:03→18:50)
[2020-10-20] MEDS: Bupropion 150 MG SR TAB PO SCH (08:18)
[2020-10-20] MEDS: Saccharomyces boulardii 250 MG CAP PO SCH (08:18)
[2020-10-20] MEDS: Ferrous Gluconate 324 MG TAB PO SCH (08:19)
[2020-10-20] MEDS: Oxybutynin 5 MG TAB PO SCH (08:19)
[2020-10-20] MEDS: Metoprolol Tartrate 100 MG TAB PO SCH ×2 (08:19→20:09)
[2020-10-20] MEDS: Docusate 100 MG CAP PO SCH ×2 (08:20→20:09)
[2020-10-20] MEDS: Thiamine 100 MG TAB PO SCH (08:20)
[2020-10-20] MEDS: Lisinopril 10 MG TAB PO SCH (08:20)
[2020-10-20] MEDS: cefTRIAXone\\ROCEPHIN 1 GM in Sodium Chloride 0.9% 100 ML IVPB SCH (08:20)
[2020-10-20] MEDS: Lorazepam 2 MG/ML VIAL SLOW IVP PRN (08:21)
[2020-10-20] MEDS: Polyethylene Glycol 3350 17 GM Packet PO SCH (09:33)
[2020-10-20] MEDS ORDERED: Diazepam 5 MG TAB PO SCH (10:00)
[2020-10-20] MEDS: cloNIDine 0.1 MG TAB PO SCH ×3 (10:42→22:08)
--- NOTE | 2020-10-20 10:54 | PDOC.HOSPP ---
- Subjective Encounter Date: 10/20/20 (f/u encephalopathy) Encounter Time: 10:52 Subjective: The patient is a 65 years old gentleman who has significant past medical history of CAD with history of PCI, COPD, hypertension, PVD, history of alcohol abuse, who was admitted to surgery service for worsened right foot infection, subsequently underwent BKA on 10/16/20. Pt tolerated procedure well. Post operatively, pt was developed delirium with worsening confusion. Hospitalist service was consulted for further evaluation and mgt. Pt continues to have hallucinations. also having some agitation - received haldol and lorazepam. Evaluated by Gen Surgery today and right leg isn't extending - valium ordered - Objective Vital Signs & Weight: Vital Signs (12 hours) Temp Pulse Resp BP BP Pulse Ox 10/20/20 10:42 159/74 H 10/20/20 08:20 125/71 10/20/20 07:25 97.8 F 97 16 125/71 97 10/20/20 03:57 97.4 F L 81 18 133/67 98 10/19/20 23:35 99.9 F H 88 16 142/71 H 98 Weight Weight 170 lb I&O: 10/19/20 10/20/20 10/21/20 06:59 06:59 06:59 Intake Total 2180 895.8 Output Total 1675 1475 Balance 505 -579.2 Result Diagrams: 10/20/20 05:37 10/20/20 05:37 Hospitalist ROS - Medication Medications: Active Medications Generic Name Dose Route Start Last Admin Trade Name Freq PRN Reason Stop Dose Admin Hydrocodone Bitart/Acetaminophen 1 tab 10/16/20 12:11 10/19/20 22:37 Hydrocodone/Acetaminophen 5/325 Mg Tablet PO 1 tab Q4H PRN Administration Severe Pain (7-10) Bupropion HCl 150 mg 10/20/20 09:00 10/20/20 08:18 Bupropion 150 Mg Sr Tab PO 150 mg DAILY YAMILA Administration Clonidine 0.1 mg 10/20/20 10:00 10/20/20 10:42 Clonidine 0.1 Mg Tab PO 0.1 mg Q6H YAMILA Administration Diazepam 5 mg 10/20/20 10:00 10/20/20 10:27 Diazepam 5 Mg Tab PO 10/20/20 12:00 5 mg NOW YAMILA Administration Docusate Sodium 100 mg 10/16/20 21:00 10/20/20 08:20 Docusate 100 Mg Cap PO 100 mg BID YAMILA Administration Ferrous Gluconate 324 mg 10/19/20 08:00 10/20/20 08:19 Ferrous Gluconate 324 Mg Tab PO 324 mg QAM-WM YAMILA Administration Haloperidol Lactate 2 mg 10/18/20 23:35 10/20/20 03:57 Haloperidol Lactate 5 Mg/Ml Vial SLOW IVP 2 mg Q4H PRN Administration Agitation Ceftriaxone Sodium 1 gm/ 100 mls @ 200 mls/hr 10/17/20 09:00 10/20/20 08:20 Sodium Chloride IVPB 100 mls Q24HR YAMILA Administration Lisinopril 10 mg 10/17/20 09:00 10/20/20 08:20 Lisinopril 10 Mg Tab PO 10 mg DAILY YAMILA Administration Lorazepam 0.5 mg 10/19/20 17:25 10/20/20 08:21 Lorazepam 2 Mg/Ml Vial SLOW IVP 0.5 mg Q6H PRN Administration Anxiety/Agitation Metoprolol Tartrate 100 mg 10/16/20 21:00 10/20/20 08:19 Metoprolol Tartrate 100 Mg Tab PO 100 mg BID YAMILA Administration Mometasone Furoate/Formoterol Fumar 1 puff 10/16/20 18:30 10/20/20 08:03 Mometasone 200 Mcg/Formoterol 5 Mcg 120 Puff Inhaler INH Not Given BID-RT YAMILA Morphine Sulfate 4 mg 10/16/20 12:11 10/17/20 22:31 Morphine 4 Mg/Ml Vial SLOW IVP 4 mg Q2H PRN Administration Severe Breakthrough Pain Oxybutynin Chloride 10 mg 10/17/20 09:00 10/20/20 08:19 Oxybutynin 5 Mg Tab PO 10 mg DAILY AYMILA Administration Pantoprazole Sodium 40 mg 10/17/20 09:00 10/20/20 08:20 Pantoprazole 40 Mg Tab PO 40 mg DAILY YAMILA Administration Polyethylene Glycol 17 gm 10/17/20 09:00 10/20/20 09:33 Polyethylene Glycol 3350 17 Gm Packet PO Not Given DAILY YAMILA Quetiapine Fumarate 25 mg 10/18/20 21:00 10/19/20 19:55 Quetiapine Fumarate 25 Mg Tab PO 25 mg HS YAMILA Administration Saccharomyces Boulardii 250 mg 10/17/20 09:00 10/20/20 08:18 Saccharomyces Boulardii 250 Mg Cap PO 250 mg DAILY YAMILA Administration Tamsulosin HCl 0.4 mg 10/16/20 21:00 10/19/20 19:54 Tamsulosin Hcl 0.4 Mg Cap PO 0.4 mg HS YAMILA Administration Thiamine HCl 100 mg 10/20/20 09:00 10/20/20 08:20 Thiamine 100 Mg Tab PO 100 mg DAILY YAMILA Administration Tramadol HCl 100 mg 10/16/20 14:36 10/19/20 08:39 Tramadol Hcl 50 Mg Tab PO 100 mg Q4H PRN Administration Severe Pain (7-10) - Exam General Appearance: NAD Heart: RRR, no murmur Respiratory: no wheezes, no rales, no ronchi Gastrointestinal: soft, non-tender, non-distended Extremities - other findings: right BKA Psychiatric - other findings: oriented to person only, has conversations with others but no one in room Hosp A/P (1) Encephalopathy Code(s): G93.40 - ENCEPHALOPATHY, UNSPECIFIED Status: Acute (2) S/P BKA (below knee amputation) Code(s): Z89.519 - ACQUIRED ABSENCE OF UNSPECIFIED LEG BELOW KNEE Status: Acute Qualifiers: Laterality: right Qualified Code(s): Z89.511 - Acquired absence of right leg below knee (3) Hyponatremia Code(s): E87.1 - HYPO-OSMOLALITY AND HYPONATREMIA Status: Acute (4) Alcoholism Code(s): F10.20 - ALCOHOL DEPENDENCE, UNCOMPLICATED Status: Chronic (5) CAD (coronary artery disease) Code(s): I25.10 - ATHSCL HEART DISEASE OF [place] CORONARY ARTERY W/O ANG PCTRS Status: Chronic (6) COPD (chronic obstructive pulmonary disease) Status: Chronic (7) PAD (peripheral artery disease) Code(s): I73.9 - PERIPHERAL VASCULAR DISEASE, UNSPECIFIED Status: Chronic - Plan Altered Mental Status - Hallucinations c/w encephalopathy Likely multifactorial given hx of alcohol abuse and possible underlying dementia, recent surgery. Labs checked 2 days ago - normal ammonia, tsh mildly elevated with normal free t4/t3 (will need outpatient follow-up). Cultures negative so far - Seroquel at night, prn haldol - low dose ativan ordered for prn use. Given the now scheduled valium to help the right knee extend full, will d/c lorazepam to avoid over-sedation Right Foot abscess in setting of severe PVD - s/p BKA - currently on Rocephin per General Surgery - continue routine post-op cares as per surgery. PT eval - valium added by General surgery as the right knee is not fully extending Macrocytic anemia, chronic superimposed with acute blood loss anemia - monitor, vit b12/folate are normal - low iron but elevated ferritin - continue iron replacement CAD with hx PCI - continue current meds as ordered HTN, essential - controlled - cont BB/ACEi COPD - no signs of exacerbation - cont Duonebs prn for sob Alcohol Abuse History - continue oral vitamin replacement Hyponatremia - do not suspect this is the source of mental status - IV multivitamin was d/c yesterday - add fluid restriction of 1.5L today - if no improvement, or worsening, will request Nephrology evaluation Chronic indwelling villagran - continue monitoring UOP Home bupropion resumed yesterday DVT ppx: per General Surgery GI ppx: not indicated, taking PO Code Status: Full Anticipated Dispo: SNF versus rehab when mental status clears and pt can cooperate with care Pt remains at high risk in current condition Addendum - updated the patient's . She reports altered mental status after his last surgery that was not as severe. She states he's had no alcohol in over a month but does have a long history of significant use (up to 18 beers per day). He also has a long tobacco history. I reviewed what we've checked, the medications that he is on. Will minimize his meds and remove tamsulosin an oxybutynin given that he has a villagran catheter in place. also reports after one surgery that his sodium was very low. Review of chart shows Jul 2020 the lowest was 117. - If worsening of sodium - plan to consult Nephrology - If no change in mental status tomorrow - plan to consult Neurology Mrs. Castellanos had no questions at the end of the call. She is aware that the transfer to rehab is on hold until mental status clears and sodium stabilizes.
--- NOTE | 2020-10-20 15:58 | PRG ---
DATE OF SERVICE: 10/20/2020 SUBJECTIVE: Mr. Castellanos is a 65-year-old man, who is postoperative day #3, status post right [id number] amputation. He reports adequate pain control. He is tolerating diet. OBJECTIVE: VITAL SIGNS: Today include blood pressure 125/71, pulse is 94, respiratory rate is 16, temperature 98.1 degrees Fahrenheit, and oxygen saturation 97% on room air. HEART: Reveals regular rate and rhythm. LUNGS: Clear to auscultation bilaterally. ABDOMEN: Soft, nontender, and nondistended. EXTREMITIES: Right BKA stump remains stable. Dressings are dry. ASSESSMENT AND PLAN: The patient is having spasms and has been started on diazepam for muscle relaxation. Continue with Physical and Occupational Therapy. Job ID: [id number]
[2020-10-20] MEDS: HYDROcodone/Acetaminophen 5/325 mg Tablet PO PRN (18:11)
[2020-10-20] MEDS: Diazepam 5 MG TAB PO SCH (20:09)
[2020-10-21] MEDS: cloNIDine 0.1 MG TAB PO SCH ×4 (04:46→21:12)
[2020-10-21 06:22] LABS: #Eosinphils 0.2 thou/uL (0.0-0.7); #Lymphocytes 1.6 thou/uL (1.20-3.40); #Monocytes 0.7 thou/uL (0.11-0.59); %Basophils 0.2 % (0.0-1.0); %Eosinophils 1.6 % (0.0-10.0); %Lymphocytes 13.8 % (21.0-51.0); %Monocytes 6.4 % (0.0-10.0); %Neutrophils 77.9 % (42.0-75.0); Hemoglobin 8.5 g/dL (14.0-18.0); Mean Corpuscular Hemoglobin 31.4 pg (27.0-31.0); Mean Corpuscular Volume 95.3 fL (78.0-98.0); Mean Platelet Volume 7.5 fL (7.4-10.4); Platelet Count 332 thou/uL (130-400); RBC Distribution Width 14.1 % (11.5-14.5); Red Blood Cell (RBC) Count 2.72 mill/uL (4.70-6.10); White Blood Cell (WBC) Count 11.6 thou/uL (4.8-10.8)
[2020-10-21 06:41] LABS: Anion Gap 14 mmol/L (10-20); BUN (Urea Nitrogen) 13 mg/dL (8.4-25.7); Calc. Creatinine Clearance 110 mL/min (70-130); Calcium 9.3 mg/dL (7.8-10.44); Carbon Dioxide 23 mmol/L (23-31); Chloride 97 mmol/L (98-107); Glucose 104 mg/dL (80-115); Potassium 3.5 mmol/L (3.5-5.1); Sodium 130 mmol/L (136-145)
[2020-10-21] MEDS: Mometasone 200 MCG/Formoterol 5 MCG 120 PUFF INHALER INH SCH ×2 (08:15→18:52)
[2020-10-21] MEDS: Diazepam 5 MG TAB PO SCH ×2 (08:48→21:13)
[2020-10-21] MEDS: Ferrous Gluconate 324 MG TAB PO SCH (08:48)
[2020-10-21] MEDS: cefTRIAXone\\ROCEPHIN 1 GM in Sodium Chloride 0.9% 100 ML IVPB SCH (08:48)
[2020-10-21] MEDS: Docusate 100 MG CAP PO SCH ×2 (08:48→21:14)
[2020-10-21] MEDS: Bupropion 150 MG SR TAB PO SCH (08:48)
[2020-10-21] MEDS: Thiamine 100 MG TAB PO SCH (08:49)
[2020-10-21] MEDS: Metoprolol Tartrate 100 MG TAB PO SCH ×2 (08:49→21:13)
[2020-10-21] MEDS: Lisinopril 10 MG TAB PO SCH (08:49)
[2020-10-21] MEDS: Polyethylene Glycol 3350 17 GM Packet PO SCH (08:49)
[2020-10-21] MEDS: Saccharomyces boulardii 250 MG CAP PO SCH (08:49)
--- NOTE | 2020-10-21 09:01 | PDOC.HOSPP ---
- Subjective Encounter Date: 10/21/20 (f/u encephalopathy) Encounter Time: 09:00 Subjective: The patient is a 65 years old gentleman who has significant past medical history of CAD with history of PCI, COPD, hypertension, PVD, history of alcohol abuse, who was admitted to surgery service for worsened right foot infection, subsequently underwent BKA on 10/16/20. Pt tolerated procedure well. Post operatively, pt was developed delirium with worsening confusion. Hospitalist service was consulted for further evaluation and mgt. No overnight events noted by RN. Last dose of haldol over 24 hours ago. Is on scheduled valium for his leg - to help knee fully extend - Objective Vital Signs & Weight: Vital Signs (12 hours) Temp Pulse Resp BP BP Pulse Ox 10/21/20 08:11 97.9 F 86 16 129/75 97 10/21/20 04:46 124/61 10/21/20 04:40 98.3 F 83 16 124/61 98 10/20/20 22:08 134/73 Weight Weight 170 lb I&O: 10/20/20 10/21/20 10/22/20 06:59 06:59 06:59 Intake Total 895.8 1070 Output Total 1475 1025 Balance -579.2 45 Result Diagrams: 10/21/20 05:44 10/21/20 05:44 Hospitalist ROS - Medication Medications: Active Medications Generic Name Dose Route Start Last Admin Trade Name Freq PRN Reason Stop Dose Admin Hydrocodone Bitart/Acetaminophen 1 tab 10/16/20 12:11 10/20/20 18:11 Hydrocodone/Acetaminophen 5/325 Mg Tablet PO 1 tab Q4H PRN Administration Severe Pain (7-10) Bupropion HCl 150 mg 10/20/20 09:00 10/21/20 08:48 Bupropion 150 Mg Sr Tab PO 150 mg DAILY YAMILA Administration Clonidine 0.1 mg 10/20/20 10:00 10/21/20 08:52 Clonidine 0.1 Mg Tab PO 0.1 mg Q6H YAMILA Administration Diazepam 5 mg 10/20/20 21:00 10/21/20 08:48 Diazepam 5 Mg Tab PO 5 mg BID YAMILA Administration Docusate Sodium 100 mg 10/16/20 21:00 10/21/20 08:48 Docusate 100 Mg Cap PO 100 mg BID YAMILA Administration Ferrous Gluconate 324 mg 10/19/20 08:00 10/21/20 08:48 Ferrous Gluconate 324 Mg Tab PO 324 mg QAM-WM YAMILA Administration Haloperidol Lactate 2 mg 10/18/20 23:35 10/20/20 03:57 Haloperidol Lactate 5 Mg/Ml Vial SLOW IVP 2 mg Q4H PRN Administration Agitation Ceftriaxone Sodium 1 gm/ 100 mls @ 200 mls/hr 10/17/20 09:00 10/21/20 08:48 Sodium Chloride IVPB 100 mls Q24HR AYMILA Administration Lisinopril 10 mg 10/17/20 09:00 10/21/20 08:49 Lisinopril 10 Mg Tab PO 10 mg DAILY YAMILA Administration Lorazepam 0.5 mg 10/19/20 17:25 10/20/20 08:21 Lorazepam 2 Mg/Ml Vial SLOW IVP 0.5 mg Q6H PRN Administration Anxiety/Agitation Metoprolol Tartrate 100 mg 10/16/20 21:00 10/21/20 08:49 Metoprolol Tartrate 100 Mg Tab PO 100 mg BID YAMILA Administration Mometasone Furoate/Formoterol Fumar 1 puff 10/16/20 18:30 10/21/20 08:15 Mometasone 200 Mcg/Formoterol 5 Mcg 120 Puff Inhaler INH 1 puff BID-RT YAMILA Administration Morphine Sulfate 4 mg 10/16/20 12:11 10/17/20 22:31 Morphine 4 Mg/Ml Vial SLOW IVP 4 mg Q2H PRN Administration Severe Breakthrough Pain Pantoprazole Sodium 40 mg 10/17/20 09:00 10/21/20 08:49 Pantoprazole 40 Mg Tab PO 40 mg DAILY YAMILA Administration Polyethylene Glycol 17 gm 10/17/20 09:00 10/21/20 08:49 Polyethylene Glycol 3350 17 Gm Packet PO 17 gm DAILY YAMILA Administration Quetiapine Fumarate 25 mg 10/18/20 21:00 10/20/20 20:09 Quetiapine Fumarate 25 Mg Tab PO 25 mg HS YAMILA Administration Saccharomyces Boulardii 250 mg 10/17/20 09:00 10/21/20 08:49 Saccharomyces Boulardii 250 Mg Cap PO 250 mg DAILY YAMILA Administration Thiamine HCl 100 mg 10/20/20 09:00 10/21/20 08:49 Thiamine 100 Mg Tab PO 100 mg DAILY YAMILA Administration Tramadol HCl 100 mg 10/16/20 14:36 10/19/20 08:39 Tramadol Hcl 50 Mg Tab PO 100 mg Q4H PRN Administration Severe Pain (7-10) - Exam General Appearance: NAD Heart: RRR, no murmur Respiratory: no wheezes, no rales, no ronchi Gastrointestinal: soft, non-tender, non-distended, normal bowel sounds Extremities: no cyanosis, no clubbing, no edema Extremities - other findings: right BKA Psychiatric - other findings: Improved today - no active hallucinations, oriented to person only Hosp A/P (1) Encephalopathy Code(s): G93.40 - ENCEPHALOPATHY, UNSPECIFIED Status: Acute (2) S/P BKA (below knee amputation) Code(s): Z89.519 - ACQUIRED ABSENCE OF UNSPECIFIED LEG BELOW KNEE Status: Acute Qualifiers: Laterality: right Qualified Code(s): Z89.511 - Acquired absence of right leg below knee (3) Hyponatremia Code(s): E87.1 - HYPO-OSMOLALITY AND HYPONATREMIA Status: Acute (4) Alcoholism Code(s): F10.20 - ALCOHOL DEPENDENCE, UNCOMPLICATED Status: Chronic (5) CAD (coronary artery disease) Code(s): I25.10 - ATHSCL HEART DISEASE OF [place] CORONARY ARTERY W/O ANG PCTRS Status: Chronic (6) COPD (chronic obstructive pulmonary disease) Status: Chronic (7) PAD (peripheral artery disease) Code(s): I73.9 - PERIPHERAL VASCULAR DISEASE, UNSPECIFIED Status: Chronic - Plan Altered Mental Status - Hallucinations c/w encephalopathy Likely multifactorial given hx of alcohol abuse and possible underlying dementia, recent surgery. Labs checked 3 days ago - normal ammonia, tsh mildly elevated with normal free t4/t3 (will need outpatient follow-up). Cultures negative so far - Seroquel at night, prn haldol - low dose ativan ordered for prn use. Given the now scheduled valium to help the right knee extend full, will d/c lorazepam to avoid over-sedation Appears slightly improved today. Spoke with the patient's yesterday and this occurred with last surgery - although less severe. Will consult Neurology for other recommendations on evaluation or treatment. Right Foot abscess in setting of severe PVD - s/p BKA - currently on Rocephin per General Surgery - can d/c per Dr. Chapa - continue routine post-op cares as per surgery. 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 Start full dose aspirin, statin, move to stroke floor. I called and updated the patient's with the MRI results. Will need more context from Neurology as well as the EEG report as to what to expect. Even with this result, pt seemed more clear today in my evaluation as well as his 's conversation with him. Mrs. Castellanos did not have any questions at the end of our call.
--- NOTE | 2020-10-21 14:52 | CON ---
NEUROLOGY CONSULTATION DATE OF CONSULTATION: 10/21/2020 REASON FOR CONSULTATION: Altered mental status. HISTORY OF PRESENT ILLNESS: Mr. Castellanos is a 65-year-old male with medical history significant for coronary artery disease with history of status post stent, COPD, hypertension, peripheral vascular disease, history of alcohol abuse, admitted to the surgery service for BKA. The patient is status post right second toe amputation on September 13, 2020, when he was subsequently discharged to the facility with continued ongoing wound care. He never healed and his condition worsened and developed a new abscess, so it was recommended to have BKA by Surgery. He was admitted under Surgery service and underwent right BKA on 10/16/2020. The patient tolerated the procedure, but postoperatively he has been increasingly confused. The patient is unable to provide the history. History is obtained from review of the medical records and also by the by bedside. Per , he has decline in his mental status since July when he had an episode of hyponatremia and since then, he never recovered, but after surgery he is extremely confused. He is extremely confused at this time and has waxing and waning mental status. He does have some visual hallucinations too. The patient does have history of significant alcohol abuse and has not been drinking recently since he came from the assisted facility. The denies any focal weakness, focal paresthesias, nausea, vomiting, headache, chest pain, abdominal pain, recent illness or recent exposure to COVID. REVIEW OF SYSTEMS: Per , all systems reviewed and were negative except the pertinent positives and negatives mentioned by the HPI. ALLERGIES: PENICILLIN, SULFAMETHOXAZOLE, TRIMETHOPRIM. HOME MEDICATIONS: 1. Prilosec. 2. Symbicort. 3. Aspirin. 4. Vitamin D3. 5. Hydrocodone. 6. Lisinopril. 7. Metoprolol. 8. Oxybutynin. 9. Bupropion. 10. Tramadol. PAST MEDICAL HISTORY: Coronary artery disease with history of PCI, COPD, hypertension, peripheral vascular disease, alcohol abuse. PAST SURGICAL HISTORY: Coronary artery stenting, bilateral angioplasty of the femoral vessel, status post left BKA on 10/16/2020. FAMILY HISTORY: Significant for hypertension and gastric cancer. SOCIAL HISTORY: The patient came from the assisted facility. He does have history of heavy alcohol abuse. Vital Signs & Weight: Vital Signs (12 hours) Temp Pulse Resp BP BP Pulse Ox 10/21/20 08:11 97.9 F 86 16 129/75 97 10/21/20 04:46 124/61 10/21/20 04:40 98.3 F 83 16 124/61 98 10/20/20 22:08 134/73 Weight Weight 170 lb I&O: 10/20/20 10/21/20 10/22/20 06:59 06:59 06:59 Intake Total 895.8 1070 Output Total 1475 1025 Balance -579.2 45 Active Medications Generic Name Dose Route Start Last Admin Trade Name Freq PRN Reason Stop Dose Admin Hydrocodone Bitart/Acetaminophen 1 tab 10/16/20 12:11 10/20/20 18:11 Hydrocodone/Acetaminophen 5/325 Mg Tablet PO 1 tab Q4H PRN Administration Severe Pain (7-10) Bupropion HCl 150 mg 10/20/20 09:00 10/21/20 08:48 Bupropion 150 Mg Sr Tab PO 150 mg DAILY YAMILA Administration Clonidine 0.1 mg 10/20/20 10:00 10/21/20 08:52 Clonidine 0.1 Mg Tab PO 0.1 mg Q6H YAMILA Administration Diazepam 5 mg 10/20/20 21:00 10/21/20 08:48 Diazepam 5 Mg Tab PO 5 mg BID YAMILA Administration Docusate Sodium 100 mg 10/16/20 21:00 10/21/20 08:48 Docusate 100 Mg Cap PO 100 mg BID YAMILA Administration Ferrous Gluconate 324 mg 10/19/20 08:00 10/21/20 08:48 Ferrous Gluconate 324 Mg Tab PO 324 mg QAM-WM YAMILA Administration Haloperidol Lactate 2 mg 10/18/20 23:35 10/20/20 03:57 Haloperidol Lactate 5 Mg/Ml Vial SLOW IVP 2 mg Q4H PRN Administration Agitation Ceftriaxone Sodium 1 gm/ 100 mls @ 200 mls/hr 10/17/20 09:00 10/21/20 08:48 Sodium Chloride IVPB 100 mls Q24HR YAMILA Administration Lisinopril 10 mg 10/17/20 09:00 10/21/20 08:49 Lisinopril 10 Mg Tab PO 10 mg DAILY YAMILA Administration Lorazepam 0.5 mg 10/19/20 17:25 10/20/20 08:21 Lorazepam 2 Mg/Ml Vial SLOW IVP 0.5 mg Q6H PRN Administration Anxiety/Agitation Metoprolol Tartrate 100 mg 10/16/20 21:00 10/21/20 08:49 Metoprolol Tartrate 100 Mg Tab PO 100 mg BID YAMILA Administration Mometasone Furoate/Formoterol Fumar 1 puff 10/16/20 18:30 10/21/20 08:15 Mometasone 200 Mcg/Formoterol 5 Mcg 120 Puff Inhaler INH 1 puff BID-RT YAMILA Administration Morphine Sulfate 4 mg 10/16/20 12:11 10/17/20 22:31 Morphine 4 Mg/Ml Vial SLOW IVP 4 mg Q2H PRN Administration Severe Breakthrough Pain Pantoprazole Sodium 40 mg 10/17/20 09:00 10/21/20 08:49 Pantoprazole 40 Mg Tab PO 40 mg DAILY YAMILA Administration Polyethylene Glycol 17 gm 10/17/20 09:00 10/21/20 08:49 Polyethylene Glycol 3350 17 Gm Packet PO 17 gm DAILY YAMILA Administration Quetiapine Fumarate 25 mg 10/18/20 21:00 10/20/20 20:09 Quetiapine Fumarate 25 Mg Tab PO 25 mg HS YAMILA Administration Saccharomyces Boulardii 250 mg 10/17/20 09:00 10/21/20 08:49 Saccharomyces Boulardii 250 Mg Cap PO 250 mg DAILY YAMILA Administration Thiamine HCl 100 mg 10/20/20 09:00 10/21/20 08:49 Thiamine 100 Mg Tab PO 100 mg DAILY YAMILA Administration Tramadol HCl 100 mg 10/16/20 14:36 10/19/20 08:39 Tramadol Hcl 50 Mg Tab PO 100 mg Q4H PRN Administration Severe Pain (7-10) PHYSICAL EXAMINATION: GENERAL APPEARANCE: The patient is alert, awake, and able to carry a conversation, but oriented to himself and his name. CARDIOVASCULAR SYSTEM: Regular rate and rhythm. CHEST: Clear. ABDOMEN: Soft. NECK: Supple. NEUROLOGIC: Mental status; the patient is alert and oriented to person and place, not to time, year or month. Motor, muscle tone and bulk are normal. Moving all 4 extremities equally and symmetrically. Sensory, withdraws to nailbed pressure bilaterally. Cerebellar, did not cooperate with the testing. Cranial nerves 2 through 12 intact. Gait, deferred due to patient's safety reasons. DATA REVIEWED: I reviewed the labs and the head CT, which showed chronic small-vessel changes. ASSESSMENT AND PLAN: (1) Encephalopathy Code(s): G93.40 - ENCEPHALOPATHY, UNSPECIFIED Status: Acute (2) S/P BKA (below knee amputation) Code(s): Z89.519 - ACQUIRED ABSENCE OF UNSPECIFIED LEG BELOW KNEE Status: Acute Qualifiers: Laterality: right Qualified Code(s): Z89.511 - Acquired absence of right leg below knee (3) Hyponatremia Code(s): E87.1 - HYPO-OSMOLALITY AND HYPONATREMIA Status: Acute (4) Alcoholism Code(s): F10.20 - ALCOHOL DEPENDENCE, UNCOMPLICATED Status: Chronic (5) CAD (coronary artery disease) Code(s): I25.10 - ATHSCL HEART DISEASE OF [place] CORONARY ARTERY W/O ANG PCTRS Status: Chronic (6) COPD (chronic obstructive pulmonary disease) Status: Chronic (7) PAD (peripheral artery disease) Code(s): I73.9 - PERIPHERAL VASCULAR DISEASE, UNSPECIFIED Status: Chronic Mr. Chato Castellanos is a 65-year-old male who was consulted for altered mental status. It seems to be multifactorial secondary to infectious or metabolic etiology. He does have history of underlying alcohol-related dementia with superimposed hospital delirium. Consider MRI of the brain to rule out acute intracranial process. EEG to rule out underlying cortical irritability and seizures. Neuro checks every 4 hours. Continue home medications. Continue medical management per primary team. Physical Therapy/Occupational Therapy/Speech. Further recommendations will depend on the results of the testing. We will continue to follow. . We will continue to follow. Thank you for the consult. Job ID: [id number] [facility]
--- NOTE | 2020-10-21 15:23 | PDOC.EEG ---
Neurology EEG Report - Report Report: This EEG was performed using 24 channel [employer] video EEG machine with 24 disc omid ctrodes. Digital analysis of the EEG was done for spike and seizure detection which revealed no abnormalities. Background: The posterior background rhythm was not observed. Hyperventilation: Not performed. Photic Stimulation: No significant response. Sleep: No stage change is observed. Spells: None EEG Diagnosis: Generalized irregular theta activity at times sharply contoured intermixed with occasional sharps seen throughout the recording. Absence of Posterior background rhythm. Clinical Interpretation: This EEG is consistent with interictal expression of epilepsy in the setting of moderate generalized nonspecific cerebral dysfunction. No electrographic seizures captured during the recording.
--- NOTE | 2020-10-21 16:32 | MRI ---
MRI BRAIN WITHOUT CONTRAST: Date: 10/21/2020 INDICATION: Mental status change. Comparison made to CT head dated 07/30/2020. FINDINGS: Mild cortical volume loss. Moderately severe chronic ischemic white matter change. There is evidence of old lacunar infarct in the brainstem at the level of the jeremiah. This was present on the prior CT. T here are ischemic brainstem changes on FLAIR sequence. On restricted diffusion images, there are two small foci of restricted diffusion in the right basal g anglia, one in the thalamus and another more peripherally in the region of the posterior limb of the internal capsule. The intensity would suggest subacute lacunar infarcts in the right basal ganglia. N o significant FLAIR signal abnormality is identified at these sites. No mass. The intracranial internal carotid arteries, basilar artery, and proximal cerebral arteries show flow- voids. Paranasal sinuses and mastoids are clear. There is mucosal edema seen in the peripheral aspect of a l eft sphenoid air cell. IMPRESSION: 1. Evidence of subacute lacunar infarcts in the right basal ganglia. 2. Moderately severe chronic ischemic white matter changes. Ischemic brainstem changes with evidence of old brainstem infarct at the level of the jeremiah. 3. Mild to moderate cortical volume loss. POS: AGW
[2020-10-21] MEDS ORDERED: Aspirin 325 mg Enteric Coated Tablet PO SCH (18:15)
[2020-10-21] MEDS: Atorvastatin Calcium 40 MG TAB PO SCH (21:13)
--- NOTE | 2020-10-21 23:09 | ULT ---
Carotid arterial Doppler ultrasound: 10/21/2020 HISTORY: Stroke, weakness, slurred speech TECHNIQUE: Multiplanar grayscale sonographic imaging of the arterial structures of the neck obtained with Doppler interrogation including color flow and spectral analysis FINDINGS: There is atherosclerotic plaque seen throughout the carotid vasculature bilaterally, most p rominent at the distal right CCA. Antegrade blood flow and normal arterial waveforms are documented within the carotid and the vertebral system bilaterally. Peak systolic velocity (centimeters per second) is as follows: Right CCA 95 Right ICA 89 Right ECA 157 Left CCA 116 Left ICA 95 Left ECA 84 ICA/CCA ratio is 0.9 on the right and 0.8 on the left. IMPRESSION: No hemodynamically significant stenosis on the basis of sonographic velocity criteria.
[2020-10-22] MEDS: Haloperidol Lactate 5 MG/ML VIAL SLOW IVP PRN (00:28)
[2020-10-22] MEDS: cloNIDine 0.1 MG TAB PO SCH ×4 (03:45→20:14)
[2020-10-22 06:47] LABS: #Eosinphils 0.2 thou/uL (0.0-0.7); #Lymphocytes 1.3 thou/uL (1.20-3.40); #Monocytes 0.8 thou/uL (0.11-0.59); #Neutrophils 8.7 thou/uL (1.40-6.50); %Basophils 0.1 % (0.0-1.0); %Eosinophils 1.7 % (0.0-10.0); %Monocytes 7.4 % (0.0-10.0); %Neutrophils 78.8 % (42.0-75.0); Hemoglobin 8.2 g/dL (14.0-18.0); Mean Corpuscular HGB CONC 31.1 g/dL (32.0-36.0); Mean Corpuscular Hemoglobin 29.7 pg (27.0-31.0); Mean Corpuscular Volume 95.6 fL (78.0-98.0); Mean Platelet Volume 7.3 fL (7.4-10.4); Platelet Count 360 thou/uL (130-400); RBC Distribution Width 14.3 % (11.5-14.5); Red Blood Cell (RBC) Count 2.76 mill/uL (4.70-6.10); White Blood Cell (WBC) Count 11.1 thou/uL (4.8-10.8)
[2020-10-22 07:08] LABS: Anion Gap 15 mmol/L (10-20); BUN (Urea Nitrogen) 16 mg/dL (8.4-25.7); Calc. Creatinine Clearance 110 mL/min (70-130); Calcium 9.3 mg/dL (7.8-10.44); Carbon Dioxide 21 mmol/L (23-31); Chloride 99 mmol/L (98-107); Glucose 117 mg/dL (80-115); Potassium 3.4 mmol/L (3.5-5.1); Sodium 132 mmol/L (136-145)
[2020-10-22] MEDS: Mometasone 200 MCG/Formoterol 5 MCG 120 PUFF INHALER INH SCH ×2 (08:35→19:32)
[2020-10-22] MEDS: Aspirin 325 mg Enteric Coated Tablet PO SCH (08:52)
[2020-10-22] MEDS: Docusate 100 MG CAP PO SCH ×2 (08:52→20:16)
[2020-10-22] MEDS: Ferrous Gluconate 324 MG TAB PO SCH (08:52)
[2020-10-22] MEDS: Bupropion 150 MG SR TAB PO SCH (08:52)
[2020-10-22] MEDS: Polyethylene Glycol 3350 17 GM Packet PO SCH (08:52)
[2020-10-22] MEDS: Diazepam 5 MG TAB PO SCH ×2 (08:52→20:16)
[2020-10-22] MEDS: Lisinopril 10 MG TAB PO SCH (08:52)
[2020-10-22] MEDS: Thiamine 100 MG TAB PO SCH (08:53)
[2020-10-22] MEDS: Metoprolol Tartrate 100 MG TAB PO SCH ×2 (08:53→20:40)
[2020-10-22] MEDS: Saccharomyces boulardii 250 MG CAP PO SCH (08:53)
[2020-10-22] MEDS ORDERED: Aspirin Chewable 81 MG TAB PO SCH (09:00)
--- NOTE | 2020-10-22 10:19 | PDOC.GSPN ---
Surgery Progress Note: Subj - Subjective Narrative: Patient is pretty groggy today. He is oriented to self and place only. He knows he is in the [facility] but cannot tell me why. He is flexing his knee more and will no longer straighten it out even with maximal assist. Vital signs are okay. Hemoglobin is 8.3 down a little bit from 8.5 yesterday. This seems to be leveling off. He has a hematoma and a lot of bruising of his stump but the skin seems viable and he has sensation to light touch. There is some serosanguineous drainage. Assessment/plan: Status post right below-knee amputation. He has a postoperative hematoma so Lovenox was not started this weekend. If his hemoglobin is stable tomorrow will start then. He does not have a fixed contracture of his knee, which does straighten out completely under general anesthesia, but due to his mental status he is not cooperating with physical th erapy and range of motion and is at high risk of developing a contracture. I am worried about skin breakdown with a knee immobilizer and his tendency to flex his knee forcefully, so the immobilizer was removed today and his knee was placed on pillows to try to keep his stump off the bed. The nurse was instructed to work with the patient to straighten his knee frequently and as much as possible. If he has any skin issues or healing problems with his below- knee amputation he will need to have an above-knee amputation. I am concerned that due to his declining mental status he is not a good rehab candidate for walking with a prosthesis despite his initial determination to do so. The cause of his mental decline is not entirely clear but is likely multifactorial. No acute stroke on MRI. EEG was interpreted as interictal but he has never had a witnessed seizure. The hospitalist and neurologist are addressing this issue but there may not be much we can do to improve it. Unfortunately his prognosis is poor. His is not at the bedside but I will try to reach her by phone today. Surgery Progress Note: Obj - Vital signs Vital signs: Vital Signs - Most Recent Temp Pulse Resp BP Pulse Ox 99.9 F H 77 22 H 137/62 100 10/22/20 07:52 10/22/20 07:52 10/22/20 07:52 10/22/20 07:52 10/22/20 07:52 Surgery Progress Note: Results - Labs Result Diagrams: 10/22/20 06:23 10/22/20 06:23 Lab results: Laboratory Results - last 12 hr 10/22/20 10/22/20 06:23 06:23 WBC 11.1 H RBC 2.76 L Hgb 8.2 L Hct 26.4 L MCV 95.6 MCH 29.7 MCHC 31.1 L RDW 14.3 Plt Count 360 MPV 7.3 L Neutrophils % 78.8 H Lymphocytes % 12.0 L Monocytes % 7.4 Eosinophils % 1.7 Basophils % 0.1 Neutrophils # 8.7 H Lymphocytes # 1.3 Monocytes # 0.8 H Eosinophils # 0.2 Basophils # 0.0 Sodium 132 L Potassium 3.4 L Chloride 99 Carbon Dioxide 21 L Anion Gap 15 BUN 16 Creatinine 0.75 Estimated GFR (MDRD) Greater than 90 Glucose 117 H Calcium 9.3
--- NOTE | 2020-10-22 12:58 | PDOC.HOSPP ---
- Subjective Encounter Date: 10/22/20 Encounter Time: 12:54 Subjective: oriented to person, no complaints - Objective Vital Signs & Weight: Vital Signs (12 hours) Temp Pulse Pulse Resp BP BP BP 10/22/20 12:00 97.7 F 71 20 127/60 10/22/20 11:45 73 109/56 L 10/22/20 07:52 99.9 F H 77 22 H 137/62 10/22/20 03:45 123/60 10/22/20 03:44 98.3 F 73 14 123/60 Pulse Ox 10/22/20 12:00 100 10/22/20 11:45 10/22/20 07:52 100 10/22/20 03:45 10/22/20 03:44 Weight Weight 170 lb I&O: 10/21/20 10/22/20 10/23/20 06:59 06:59 06:59 Intake Total 1070 1090 Output Total 1025 850 Balance 45 240 Result Diagrams: 10/22/20 06:23 10/22/20 06:23 Hospitalist ROS - Medication Medications: Active Medications Generic Name Dose Route Start Last Admin Trade Name Freq PRN Reason Stop Dose Admin Hydrocodone Bitart/Acetaminophen 1 tab 10/16/20 12:11 10/20/20 18:11 Hydrocodone/Acetaminophen 5/325 Mg Tablet PO 1 tab Q4H PRN Administration Severe Pain (7-10) Aspirin 325 mg 10/22/20 09:00 10/22/20 08:52 Aspirin 325 Mg Enteric Coated Tablet PO 325 mg DAILY YAMILA Administration Atorvastatin Calcium 40 mg 10/21/20 21:00 10/21/20 21:13 Atorvastatin Calcium 40 Mg Tab PO 40 mg HS YAMILA Administration Bupropion HCl 150 mg 10/20/20 09:00 10/22/20 08:52 Bupropion 150 Mg Sr Tab PO 150 mg DAILY YAMILA Administration Clonidine 0.1 mg 10/20/20 10:00 10/22/20 12:06 Clonidine 0.1 Mg Tab PO Not Given Q6H YAMILA Diazepam 5 mg 10/20/20 21:00 10/22/20 08:52 Diazepam 5 Mg Tab PO 5 mg BID YAMILA Administration Docusate Sodium 100 mg 10/16/20 21:00 10/22/20 08:52 Docusate 100 Mg Cap PO 100 mg BID YAMILA Administration Ferrous Gluconate 324 mg 10/19/20 08:00 10/22/20 08:52 Ferrous Gluconate 324 Mg Tab PO 324 mg QAM-WM YAMILA Administration Haloperidol Lactate 2 mg 10/18/20 23:35 10/22/20 00:28 Haloperidol Lactate 5 Mg/Ml Vial SLOW IVP 2 mg Q4H PRN Administration Agitation Lisinopril 10 mg 10/17/20 09:00 10/22/20 08:52 Lisinopril 10 Mg Tab PO 10 mg DAILY YAMILA Administration Metoprolol Tartrate 100 mg 10/16/20 21:00 10/22/20 08:53 Metoprolol Tartrate 100 Mg Tab PO 100 mg BID YAMILA Administration Mometasone Furoate/Formoterol Fumar 1 puff 10/16/20 18:30 10/22/20 08:35 Mometasone 200 Mcg/Formoterol 5 Mcg 120 Puff Inhaler INH 1 puff BID-RT YAMILA Administration Morphine Sulfate 2 mg 10/16/20 12:11 10/22/20 06:02 Morphine 2 Mg/Ml Vial SLOW IVP 2 mg Q2H PRN Administration Moderate Breakthrough Pain Morphine Sulfate 4 mg 10/16/20 12:11 10/17/20 22:31 Morphine 4 Mg/Ml Vial SLOW IVP 4 mg Q2H PRN Administration Severe Breakthrough Pain Pantoprazole Sodium 40 mg 10/17/20 09:00 10/22/20 08:52 Pantoprazole 40 Mg Tab PO 40 mg DAILY YAMILA Administration Polyethylene Glycol 17 gm 10/17/20 09:00 10/22/20 08:52 Polyethylene Glycol 3350 17 Gm Packet PO 17 gm DAILY YAMILA Administration Quetiapine Fumarate 25 mg 10/18/20 21:00 10/21/20 21:13 Quetiapine Fumarate 25 Mg Tab PO 25 mg HS YAMILA Administration Saccharomyces Boulardii 250 mg 10/17/20 09:00 10/22/20 08:53 Saccharomyces Boulardii 250 Mg Cap PO 250 mg DAILY YAMILA Administration Sodium Chloride 10 ml 10/16/20 12:11 10/22/20 08:52 Flush - Normal Saline 10 Ml Syringe IVF 10 ml PRN PRN Administration Saline Flush Thiamine HCl 100 mg 10/20/20 09:00 10/22/20 08:53 Thiamine 100 Mg Tab PO 100 mg DAILY YAMILA Administration Tramadol HCl 100 mg 10/16/20 14:36 10/19/20 08:39 Tramadol Hcl 50 Mg Tab PO 100 mg Q4H PRN Administration Severe Pain (7-10) - Exam Neck: no JVD Heart: RRR, no murmur Respiratory: CTAB Gastrointestinal: soft, normal bowel sounds Extremities - other findings: RLE amputation Hosp A/P (1) Encephalopathy Code(s): G93.40 - ENCEPHALOPATHY, UNSPECIFIED Status: Acute (2) Alcohol withdrawal delirium Code(s): F10.231 - ALCOHOL DEPENDENCE WITH WITHDRAWAL DELIRIUM Status: Acute (3) Alcoholism Code(s): F10.20 - ALCOHOL DEPENDENCE, UNCOMPLICATED Status: Chronic (4) CAD (coronary artery disease) Code(s): I25.10 - ATHSCL HEART DISEASE OF [place] CORONARY ARTERY W/O ANG PCTRS Status: Chronic Qualifiers: Coronary Disease-Associated Artery/Lesion type: [place] artery [place] vs. transplanted heart: [place] heart Associated angina: without angina Qualified Code(s): I25.10 - Atherosclerotic heart disease of [place] coronary artery without angina pectoris (5) COPD (chronic obstructive pulmonary disease) Status: Chronic (6) PAD (peripheral artery disease) Code(s): I73.9 - PERIPHERAL VASCULAR DISEASE, UNSPECIFIED Status: Chronic (7) Tobacco abuse Code(s): Z72.0 - TOBACCO USE Status: Chronic - Plan post op encephalopathy - MRI consistent with old lacunar infarctstable at prsent will need placement cont asa, statin, cont thiamine, MVI
--- NOTE | 2020-10-22 13:10 | PDOC.NEUPN ---
- Subjective Encounter Date: 10/22/20 Subjective: Mr. Castellanos remains confused and oriented to person only. - Objective Vital Signs & Weight: Vital Signs (12 hours) Temp Pulse Pulse Resp BP BP BP 10/22/20 12:00 97.7 F 71 20 127/60 10/22/20 11:45 73 109/56 L 10/22/20 07:52 99.9 F H 77 22 H 137/62 10/22/20 03:45 123/60 10/22/20 03:44 98.3 F 73 14 123/60 Pulse Ox 10/22/20 12:00 100 10/22/20 11:45 10/22/20 07:52 100 10/22/20 03:45 10/22/20 03:44 Weight Weight 170 lb I&O: 10/21/20 10/22/20 10/23/20 06:59 06:59 06:59 Intake Total 1070 1090 Output Total 1025 850 Balance 45 240 Result Diagrams: 10/22/20 06:23 10/22/20 06:23 Radiology Reviewed by me: Yes EKG Reviewed by me: Yes ROS - Review of Systems ROS unobtainable: due to mental status - Medication Medications: Active Medications Generic Name Dose Route Start Last Admin Trade Name Freq PRN Reason Stop Dose Admin Hydrocodone Bitart/Acetaminophen 1 tab 10/16/20 12:11 10/20/20 18:11 Hydrocodone/Acetaminophen 5/325 Mg Tablet PO 1 tab Q4H PRN Administration Severe Pain (7-10) Aspirin 325 mg 10/22/20 09:00 10/22/20 08:52 Aspirin 325 Mg Enteric Coated Tablet PO 325 mg DAILY YAMILA Administration Atorvastatin Calcium 40 mg 10/21/20 21:00 10/21/20 21:13 Atorvastatin Calcium 40 Mg Tab PO 40 mg HS YAMILA Administration Bupropion HCl 150 mg 10/20/20 09:00 10/22/20 08:52 Bupropion 150 Mg Sr Tab PO 150 mg DAILY YAMILA Administration Clonidine 0.1 mg 10/20/20 10:00 10/22/20 12:06 Clonidine 0.1 Mg Tab PO Not Given Q6H YAMILA Diazepam 5 mg 10/20/20 21:00 10/22/20 08:52 Diazepam 5 Mg Tab PO 5 mg BID YAMILA Administration Docusate Sodium 100 mg 10/16/20 21:00 10/22/20 08:52 Docusate 100 Mg Cap PO 100 mg BID YAMILA Administration Ferrous Gluconate 324 mg 10/19/20 08:00 10/22/20 08:52 Ferrous Gluconate 324 Mg Tab PO 324 mg QAM-WM YAMILA Administration Haloperidol Lactate 2 mg 10/18/20 23:35 10/22/20 00:28 Haloperidol Lactate 5 Mg/Ml Vial SLOW IVP 2 mg Q4H PRN Administration Agitation Lisinopril 10 mg 10/17/20 09:00 10/22/20 08:52 Lisinopril 10 Mg Tab PO 10 mg DAILY YAMILA Administration Metoprolol Tartrate 100 mg 10/16/20 21:00 10/22/20 08:53 Metoprolol Tartrate 100 Mg Tab PO 100 mg BID YAMILA Administration Mometasone Furoate/Formoterol Fumar 1 puff 10/16/20 18:30 10/22/20 08:35 Mometasone 200 Mcg/Formoterol 5 Mcg 120 Puff Inhaler INH 1 puff BID-RT YAMILA Administration Morphine Sulfate 2 mg 10/16/20 12:11 10/22/20 06:02 Morphine 2 Mg/Ml Vial SLOW IVP 2 mg Q2H PRN Administration Moderate Breakthrough Pain Morphine Sulfate 4 mg 10/16/20 12:11 10/17/20 22:31 Morphine 4 Mg/Ml Vial SLOW IVP 4 mg Q2H PRN Administration Severe Breakthrough Pain Pantoprazole Sodium 40 mg 10/17/20 09:00 10/22/20 08:52 Pantoprazole 40 Mg Tab PO 40 mg DAILY YAMILA Administration Polyethylene Glycol 17 gm 10/17/20 09:00 10/22/20 08:52 Polyethylene Glycol 3350 17 Gm Packet PO 17 gm DAILY YAMILA Administration Quetiapine Fumarate 25 mg 10/18/20 21:00 10/21/20 21:13 Quetiapine Fumarate 25 Mg Tab PO 25 mg HS YAMILA Administration Saccharomyces Boulardii 250 mg 10/17/20 09:00 10/22/20 08:53 Saccharomyces Boulardii 250 Mg Cap PO 250 mg DAILY YAMILA Administration Sodium Chloride 10 ml 10/16/20 12:11 10/22/20 08:52 Flush - Normal Saline 10 Ml Syringe IVF 10 ml PRN PRN Administration Saline Flush Thiamine HCl 100 mg 10/20/20 09:00 10/22/20 08:53 Thiamine 100 Mg Tab PO 100 mg DAILY YAMILA Administration Tramadol HCl 100 mg 10/16/20 14:36 10/19/20 08:39 Tramadol Hcl 50 Mg Tab PO 100 mg Q4H PRN Administration Severe Pain (7-10) - Exam General Appearance: NAD Eye: PERRL ENT: normocephalic atraumatic Neck: supple Respiratory: CTAB Gastrointestinal: soft Extremities: no cyanosis Skin: normal turgor Neurological: no focal deficits, no new deficit Musculoskeletal: normal tone, no muscle wasting PSYCH: normal affect, oriented to person Results - Labs Result Diagrams: 10/22/20 06:23 10/22/20 06:23 Lab results: WBC 11.1 thou/uL (4.8-10.8) H 10/22/20 06:23 Hgb 8.2 g/dL (14.0-18.0) L 10/22/20 06:23 Hct 26.4 % (42.0-52.0) L 10/22/20 06:23 MCV 95.6 fL (78.0-98.0) 10/22/20 06:23 Plt Count 360 thou/uL (130-400) 10/22/20 06:23 Neutrophils % 78.8 % (42.0-75.0) H 10/22/20 06:23 Sodium 132 mmol/L (136-145) L 10/22/20 06:23 Potassium 3.4 mmol/L (3.5-5.1) L 10/22/20 06:23 Chloride 99 mmol/L (98-107) 10/22/20 06:23 Carbon Dioxide 21 mmol/L (23-31) L 10/22/20 06:23 BUN 16 mg/dL (8.4-25.7) 10/22/20 06:23 Creatinine 0.75 mg/dL (0.7-1.3) 10/22/20 06:23 Glucose 117 mg/dL (80-115) H 10/22/20 06:23 Calcium 9.3 mg/dL (7.8-10.44) 10/22/20 06:23 Total Bilirubin 0.6 mg/dL (0.2-1.2) 10/20/20 05:37 AST 100 U/L (5-34) H 10/20/20 05:37 ALT 70 U/L (8-55) H 10/20/20 05:37 Alkaline Phosphatase 147 U/L (40-110) H 10/20/20 05:37 Ammonia 26 umol/L (18-72) 10/17/20 15:16 Serum Total Protein 7.1 g/dL (5.8-8.1) 10/20/20 05:37 Albumin 3.2 g/dL (3.4-4.8) L 10/20/20 05:37 Urine Ketones Negative mg/dL (Negative) 10/17/20 16:35 Urine Blood 3+ (Negative) A 10/17/20 16:35 Urine Nitrite Negative (Negative) 10/17/20 16:35 Ur Leukocyte Esterase 25 Catherine/uL (Negative) A 10/17/20 16:35 Urine RBC Greater than 50 HPF (0-3) A 10/17/20 16:35 Urine WBC 4-6 HPF (0-3) A 10/17/20 16:35 Ur Squamous Epith Cells None Seen HPF (0-3) 10/17/20 16:35 Urine Bacteria None Seen HPF (None Seen) 10/17/20 16:35 - Radiology Interpretation MRI - head Additional Comment: MRI of the brain reviewed which was consistent with subacute infarctions in the right basal ganglia and moderate small vessel disease. PN A/P (1) AMS (altered mental status) Code(s): R41.82 - ALTERED MENTAL STATUS, UNSPECIFIED Status: Acute (2) CVA (cerebrovascular accident) Code(s): I63.9 - CEREBRAL INFARCTION, UNSPECIFIED Status: Acute (3) Hyponatremia Code(s): E87.1 - HYPO-OSMOLALITY AND HYPONATREMIA Status: Acute (4) Rib fracture Code(s): S22.39XA - FRACTURE OF ONE RIB, UNSP SIDE, INIT FOR CLOS FX Status: Acute (5) Alcoholism Code(s): F10.20 - ALCOHOL DEPENDENCE, UNCOMPLICATED Status: Chronic (6) CAD (coronary artery disease) Code(s): I25.10 - ATHSCL HEART DISEASE OF [place] CORONARY ARTERY W/O ANG PCTRS Status: Chronic Qualifiers: Coronary Disease-Associated Artery/Lesion type: [place] artery [place] vs. transplanted heart: [place] heart Associated angina: without angina Qualified Code(s): I25.10 - Atherosclerotic heart disease of [place] coronary artery without angina pectoris (7) PAD (peripheral artery disease) Code(s): I73.9 - PERIPHERAL VASCULAR DISEASE, UNSPECIFIED Status: Chronic (8) Tobacco abuse Code(s): Z72.0 - TOBACCO USE Status: Chronic - Plan Daily Plan: PT/OT, speech therapy, DVT proph w/lovenox Mr. Howard is a 65-year-old male with medical history significant for alcohol abuse, advanced dementia, hyponatremia, coronary artery disease s/p stents presented with altered mental status. EEG reviewed which was negative for seizure activity but consistent with moderate generalized cerebral dysfunction which is nonspecific MRI of the brain reviewed which showed subacute lacunar infarctions in the right basal ganglia and moderate to severe small vessel disease. Carotid Dopplers did not reveal hemodynamically significant stenosis. Neurochecks every 4 hours. Continue aspirin and high intensity statin for secondary stroke prevention. Telemetry to rule out arrhythmias. 2D echo to evaluate for left ventricular ejection fraction is pending at this time. Continue home medications. Strict control of blood pressure and blood glucose. PT/OT/speech. Continue medical management per primary team. Plan discussed in detail with the nursing staff.
--- NOTE | 2020-10-22 13:48 | RAD ---
Exam: Modified barium swallow, the presence of speech pathologist HISTORY: Basilar stroke. Dysphagia following cerebral infarct. Feeding difficulties Exposure: 2.1 minutes, 0.729 wilson per centimeter square FINDINGS: In the presence of the speech pathologist, the patient was administered thin liquid, nectar thick, honey thick, pudding and solid consistencies Premature spillage into the vallecula and piriform sinuses on all of a forementioned consistencies. N o evidence of penetration or aspiration IMPRESSION: Refer to speech pathologist report for feeding recommendation
[2020-10-22] MEDS: Atorvastatin Calcium 40 MG TAB PO SCH (20:14)
[2020-10-22] MEDS: HYDROcodone/Acetaminophen 5/325 mg Tablet PO PRN (20:15)
[2020-10-23] MEDS: cloNIDine 0.1 MG TAB PO SCH ×4 (05:46→22:54)
[2020-10-23] MEDS: Mometasone 200 MCG/Formoterol 5 MCG 120 PUFF INHALER INH SCH ×2 (08:03→20:11)
[2020-10-23] MEDS: Aspirin 325 mg Enteric Coated Tablet PO SCH (08:54)
[2020-10-23] MEDS: Diazepam 5 MG TAB PO SCH ×2 (08:54→20:45)
[2020-10-23] MEDS: Bupropion 150 MG SR TAB PO SCH (08:54)
[2020-10-23] MEDS: Ferrous Gluconate 324 MG TAB PO SCH (08:58)
[2020-10-23] MEDS: Thiamine 100 MG TAB PO SCH (09:00)
[2020-10-23] MEDS: Polyethylene Glycol 3350 17 GM Packet PO SCH (09:00)
[2020-10-23] MEDS: Docusate 100 MG CAP PO SCH ×2 (09:00→20:45)
[2020-10-23] MEDS: Saccharomyces boulardii 250 MG CAP PO SCH (09:00)
[2020-10-23] MEDS: Lisinopril 10 MG TAB PO SCH (09:23)
[2020-10-23] MEDS: Metoprolol Tartrate 100 MG TAB PO SCH ×2 (09:24→20:45)
[2020-10-23] MEDS: traMADol HCl 50 MG TAB PO PRN (09:26)
--- NOTE | 2020-10-23 09:27 | PDOC.HOSPP ---
- Subjective Encounter Date: 10/23/20 Encounter Time: 09:25 Subjective: oriented to person and place. working with PT - Objective Vital Signs & Weight: Vital Signs (12 hours) Temp Pulse Resp BP Pulse Ox 10/23/20 07:57 98.0 F 73 20 108/55 L 100 10/23/20 04:45 98.5 F 72 16 122/58 L 97 Weight Admit Weight 170 lb Weight 170 lb I&O: 10/22/20 10/23/20 10/24/20 06:59 06:59 06:59 Intake Total 1090 640 Output Total 850 550 Balance 240 90 Result Diagrams: 10/22/20 06:23 10/22/20 06:23 Hospitalist ROS - Medication Medications: Active Medications Generic Name Dose Route Start Last Admin Trade Name Freq PRN Reason Stop Dose Admin Hydrocodone Bitart/Acetaminophen 1 tab 10/16/20 12:11 10/22/20 20:15 Hydrocodone/Acetaminophen 5/325 Mg Tablet PO 1 tab Q4H PRN Administration Severe Pain (7-10) Aspirin 325 mg 10/22/20 09:00 10/23/20 08:54 Aspirin 325 Mg Enteric Coated Tablet PO 325 mg DAILY YAMILA Administration Atorvastatin Calcium 40 mg 10/21/20 21:00 10/22/20 20:14 Atorvastatin Calcium 40 Mg Tab PO 40 mg HS YAMILA Administration Bupropion HCl 150 mg 10/20/20 09:00 10/23/20 08:54 Bupropion 150 Mg Sr Tab PO 150 mg DAILY YAMILA Administration Clonidine 0.1 mg 10/20/20 10:00 10/23/20 05:46 Clonidine 0.1 Mg Tab PO 0.1 mg Q6H YAMILA Administration Diazepam 5 mg 10/20/20 21:00 10/23/20 08:54 Diazepam 5 Mg Tab PO 5 mg BID YAMILA Administration Docusate Sodium 100 mg 10/16/20 21:00 10/23/20 09:00 Docusate 100 Mg Cap PO 100 mg BID YAMILA Administration Ferrous Gluconate 324 mg 10/19/20 08:00 10/23/20 08:58 Ferrous Gluconate 324 Mg Tab PO 324 mg QAM-WM YAMILA Administration Haloperidol Lactate 2 mg 10/18/20 23:35 10/22/20 00:28 Haloperidol Lactate 5 Mg/Ml Vial SLOW IVP 2 mg Q4H PRN Administration Agitation Lisinopril 10 mg 10/17/20 09:00 10/22/20 08:52 Lisinopril 10 Mg Tab PO 10 mg DAILY YAMILA Administration Metoprolol Tartrate 100 mg 10/16/20 21:00 10/22/20 20:40 Metoprolol Tartrate 100 Mg Tab PO 100 mg BID YAMILA Administration Mometasone Furoate/Formoterol Fumar 1 puff 10/16/20 18:30 10/23/20 08:03 Mometasone 200 Mcg/Formoterol 5 Mcg 120 Puff Inhaler INH 1 puff BID-RT YAMILA Administration Morphine Sulfate 2 mg 10/16/20 12:11 10/22/20 06:02 Morphine 2 Mg/Ml Vial SLOW IVP 2 mg Q2H PRN Administration Moderate Breakthrough Pain Morphine Sulfate 4 mg 10/16/20 12:11 10/17/20 22:31 Morphine 4 Mg/Ml Vial SLOW IVP 4 mg Q2H PRN Administration Severe Breakthrough Pain Pantoprazole Sodium 40 mg 10/17/20 09:00 10/23/20 08:54 Pantoprazole 40 Mg Tab PO 40 mg DAILY YAMILA Administration Polyethylene Glycol 17 gm 10/17/20 09:00 10/23/20 09:00 Polyethylene Glycol 3350 17 Gm Packet PO 17 gm DAILY YAMILA Administration Quetiapine Fumarate 25 mg 10/18/20 21:00 10/22/20 20:39 Quetiapine Fumarate 25 Mg Tab PO 25 mg HS YAMILA Administration Saccharomyces Boulardii 250 mg 10/17/20 09:00 10/23/20 09:00 Saccharomyces Boulardii 250 Mg Cap PO 250 mg DAILY YAMILA Administration Sodium Chloride 10 ml 10/16/20 12:11 10/22/20 08:52 Flush - Normal Saline 10 Ml Syringe IVF 10 ml PRN PRN Administration Saline Flush Thiamine HCl 100 mg 10/20/20 09:00 10/23/20 09:00 Thiamine 100 Mg Tab PO 100 mg DAILY YAMILA Administration Tramadol HCl 100 mg 10/16/20 14:36 10/19/20 08:39 Tramadol Hcl 50 Mg Tab PO 100 mg Q4H PRN Administration Severe Pain (7-10) - Exam Neck: no JVD Heart: RRR, no murmur Respiratory: CTAB Gastrointestinal: soft, normal bowel sounds Extremities: no edema Extremities - other findings: post R BKA, minimal extension at knee Hosp A/P (1) Encephalopathy Code(s): G93.40 - ENCEPHALOPATHY, UNSPECIFIED Status: Acute (2) Alcohol withdrawal delirium Code(s): F10.231 - ALCOHOL DEPENDENCE WITH WITHDRAWAL DELIRIUM Status: Acute (3) Alcoholism Code(s): F10.20 - ALCOHOL DEPENDENCE, UNCOMPLICATED Status: Chronic (4) CAD (coronary artery disease) Code(s): I25.10 - ATHSCL HEART DISEASE OF [place] CORONARY ARTERY W/O ANG PCTRS Status: Chronic Qualifiers: Coronary Disease-Associated Artery/Lesion type: [place] artery [place] vs. transplanted heart: [place] heart Associated angina: without angina Qualified Code(s): I25.10 - Atherosclerotic heart disease of [place] coronary artery without angina pectoris (5) COPD (chronic obstructive pulmonary disease) Status: Chronic (6) PAD (peripheral artery disease) Code(s): I73.9 - PERIPHERAL VASCULAR DISEASE, UNSPECIFIED Status: Chronic (7) Tobacco abuse Code(s): Z72.0 - TOBACCO USE Status: Chronic (8) Status post below knee amputation of right lower extremity Code(s): Z89.511 - ACQUIRED ABSENCE OF RIGHT LEG BELOW KNEE Status: Acute (9) CVA (cerebrovascular accident) Code(s): I63.9 - CEREBRAL INFARCTION, UNSPECIFIED Status: Acute Qualifiers: CVA mechanism: thrombosis Precerebral and cerebral artery: vertebral artery Laterality of affected vessel: right Qualified Code(s): I63.011 - Cerebral infarction due to thrombosis of right vertebral artery - Plan post op R BKA encephalopathy -stable MRI consistent with old lacunar infarctstable at prsent will need placement cont asa, statin, cont thiamine, MVI
--- NOTE | 2020-10-23 12:21 | PQF ---
CLINICAL DOCUMENTATION CLARIFICATION FORM: Dear Dr. Youssef Date: 10/23/2020 Please exercise your independent, professional judgment in responding to the clarification form. Clinical indicators are provided on the bottom of this form for your review. Please check appropriate box(es): [ x ] Encephalopathy: Etiology: [ ] Metabolic [ x ] Toxic [ ] Drug induced: [ ] In the setting of underlying dementia [ ] Unspecified [ ] Other (please specify) [ ] Other diagnosis [ ] Unable to determine In addition, please specify: Present on Admission (POA): [ x ] Yes [ ] No [ ] Unable to determine For continuity of documentation, please document condition throughout progress notes and discharge summary. Thank You. To be completed by CDI/Coding staff for physician review: CLINICAL INDICATORS - SIGNS / SYMPTOMS / LABS / RESULTS AND LOCATION IN EMR *10/17 pn (Eduard) A/P: His mental status has worsened somewhat which is likely a combination of postanesthetic and infectious delirium along with his longstanding hx of alcoholism. *10/19 pn (Nemesio) Encounter: f/u encephalopathy Post operatively, pt developed delirium with worsening confusion. A/P: Encephalopathy. Acute Hyponatremia *10/21 pn (Nemesio) Plan: Altered Mental Status Hallucinations c/w encephalopathy Likely multifactorial given hx of alcohol abuse and possible underlying dementia, recent surgery. Appears slightly improved today. *10/21 pn (Ariane) A/P: Encephalopathy. Acute consulted for altered mental status. It seems to be multifactorial secondary to infectious or metabolic etiology. He does have hx of underlying alcohol-related dementia with superimposed hospital delirium. *10/23 pn (Mikael): Plan: Encephalopathy stable MRI consistent with old lacunar infarct stable at present RISK FACTORS / RESULTS AND LOCATION IN EMR *10/17 pn (Eduard) A/P: S/p r BKA. *10/19 pn (Nemesio): Subjective: pmh of CAD, hx COPD, HTN, PVD, hx of alcohol abuse. Plan: R foot abscess in setting of severe PVD - s/p BKA. TREATMENTS / RESULTS AND LOCATION IN EMR *10/17 Hospitalist Consultation for AMS/ confusion/ medical mgmt *10/18 pn (Angi): Decrease seroquel to HS as he is somnolent this morning, cont. Rocephin. *10/18 MAR: Order Haldol 2mg slow IVP prn for agitation. *10/20 pn (Nemesio) Hyponatremia; IV multivitamin was d/c yesterday add fluid restriction of 1.5 L today *10/23 pn (Mikael) Plan: cont asa, statin, cont thiamine, MVI Thank you, Carmelita Gilbert, RN, BSN [email or web address] This is a permanent part of the Medical Record [facility]
--- NOTE | 2020-10-23 13:00 | PDOC.NEUPN ---
- Subjective Encounter Date: 10/23/20 Subjective: Mr. Castellanos seems better today and is oriented to person and place. - Objective Vital Signs & Weight: Vital Signs (12 hours) Temp Pulse Pulse Resp BP BP Pulse Ox 10/23/20 11:33 98.3 F 79 20 106/54 L 100 10/23/20 08:55 85 97/57 L 10/23/20 07:57 98.0 F 73 20 108/55 L 100 10/23/20 04:45 98.5 F 72 16 122/58 L 97 Weight Admit Weight 170 lb Weight 170 lb I&O: 10/22/20 10/23/20 10/24/20 06:59 06:59 06:59 Intake Total 1090 640 Output Total 850 550 Balance 240 90 Result Diagrams: 10/22/20 06:23 10/22/20 06:23 Radiology Reviewed by me: Yes EKG Reviewed by me: Yes ROS - Review of Systems ROS unobtainable: due to mental status (Dementia) - Medication Medications: Active Medications Generic Name Dose Route Start Last Admin Trade Name Freq PRN Reason Stop Dose Admin Hydrocodone Bitart/Acetaminophen 1 tab 10/16/20 12:11 10/22/20 20:15 Hydrocodone/Acetaminophen 5/325 Mg Tablet PO 1 tab Q4H PRN Administration Severe Pain (7-10) Aspirin 325 mg 10/22/20 09:00 10/23/20 08:54 Aspirin 325 Mg Enteric Coated Tablet PO 325 mg DAILY YAMILA Administration Atorvastatin Calcium 40 mg 10/21/20 21:00 10/22/20 20:14 Atorvastatin Calcium 40 Mg Tab PO 40 mg HS YAMILA Administration Bupropion HCl 150 mg 10/20/20 09:00 10/23/20 08:54 Bupropion 150 Mg Sr Tab PO 150 mg DAILY YAMILA Administration Clonidine 0.1 mg 10/20/20 10:00 10/23/20 09:24 Clonidine 0.1 Mg Tab PO Not Given Q6H YAMILA Diazepam 5 mg 10/20/20 21:00 10/23/20 08:54 Diazepam 5 Mg Tab PO 5 mg BID YAMILA Administration Docusate Sodium 100 mg 10/16/20 21:00 10/23/20 09:00 Docusate 100 Mg Cap PO 100 mg BID YAMILA Administration Ferrous Gluconate 324 mg 10/19/20 08:00 10/23/20 08:58 Ferrous Gluconate 324 Mg Tab PO 324 mg QAM-WM YAMILA Administration Haloperidol Lactate 2 mg 10/18/20 23:35 10/22/20 00:28 Haloperidol Lactate 5 Mg/Ml Vial SLOW IVP 2 mg Q4H PRN Administration Agitation Lisinopril 10 mg 10/17/20 09:00 10/23/20 09:23 Lisinopril 10 Mg Tab PO Not Given DAILY YAMILA Metoprolol Tartrate 100 mg 10/16/20 21:00 10/23/20 09:24 Metoprolol Tartrate 100 Mg Tab PO Not Given BID [facility] Mometasone Furoate/Formoterol Fumar 1 puff 10/16/20 18:30 10/23/20 08:03 Mometasone 200 Mcg/Formoterol 5 Mcg 120 Puff Inhaler INH 1 puff BID-RT YAMILA Administration Morphine Sulfate 2 mg 10/16/20 12:11 10/22/20 06:02 Morphine 2 Mg/Ml Vial SLOW IVP 2 mg Q2H PRN Administration Moderate Breakthrough Pain Morphine Sulfate 4 mg 10/16/20 12:11 10/17/20 22:31 Morphine 4 Mg/Ml Vial SLOW IVP 4 mg Q2H PRN Administration Severe Breakthrough Pain Pantoprazole Sodium 40 mg 10/17/20 09:00 10/23/20 08:54 Pantoprazole 40 Mg Tab PO 40 mg DAILY YAMILA Administration Polyethylene Glycol 17 gm 10/17/20 09:00 10/23/20 09:00 Polyethylene Glycol 3350 17 Gm Packet PO 17 gm DAILY YAMILA Administration Quetiapine Fumarate 25 mg 10/18/20 21:00 10/22/20 20:39 Quetiapine Fumarate 25 Mg Tab PO 25 mg HS YAMILA Administration Saccharomyces Boulardii 250 mg 10/17/20 09:00 10/23/20 09:00 Saccharomyces Boulardii 250 Mg Cap PO 250 mg DAILY YAMILA Administration Sodium Chloride 10 ml 10/16/20 12:11 10/22/20 08:52 Flush - Normal Saline 10 Ml Syringe IVF 10 ml PRN PRN Administration Saline Flush Thiamine HCl 100 mg 10/20/20 09:00 10/23/20 09:00 Thiamine 100 Mg Tab PO 100 mg DAILY YAMILA Administration Tramadol HCl 50 mg 10/16/20 14:36 10/23/20 09:26 Tramadol Hcl 50 Mg Tab PO 50 mg Q4H PRN Administration Moderate Pain (4-6) Tramadol HCl 100 mg 10/16/20 14:36 10/19/20 08:39 Tramadol Hcl 50 Mg Tab PO 100 mg Q4H PRN Administration Severe Pain (7-10) - Exam General Appearance: NAD Eye: PERRL ENT: normocephalic atraumatic Neck: supple Respiratory: no tachypnea Cardiovascular: RRR Gastrointestinal: soft Extremities: no cyanosis Skin: normal turgor Neurological: no new deficit Musculoskeletal: normal tone, no muscle wasting PSYCH: normal affect, oriented to person, oriented to place Results - Labs Result Diagrams: 10/22/20 06:23 10/22/20 06:23 Lab results: WBC 11.1 thou/uL (4.8-10.8) H 10/22/20 06:23 Hgb 8.2 g/dL (14.0-18.0) L 10/22/20 06:23 Hct 26.4 % (42.0-52.0) L 10/22/20 06:23 MCV 95.6 fL (78.0-98.0) 10/22/20 06:23 Plt Count 360 thou/uL (130-400) 10/22/20 06:23 Neutrophils % 78.8 % (42.0-75.0) H 10/22/20 06:23 Sodium 132 mmol/L (136-145) L 10/22/20 06:23 Potassium 3.4 mmol/L (3.5-5.1) L 10/22/20 06:23 Chloride 99 mmol/L (98-107) 10/22/20 06:23 Carbon Dioxide 21 mmol/L (23-31) L 10/22/20 06:23 BUN 16 mg/dL (8.4-25.7) 10/22/20 06:23 Creatinine 0.75 mg/dL (0.7-1.3) 10/22/20 06:23 Glucose 117 mg/dL (80-115) H 10/22/20 06:23 Calcium 9.3 mg/dL (7.8-10.44) 10/22/20 06:23 Total Bilirubin 0.6 mg/dL (0.2-1.2) 10/20/20 05:37 AST 100 U/L (5-34) H 10/20/20 05:37 ALT 70 U/L (8-55) H 10/20/20 05:37 Alkaline Phosphatase 147 U/L (40-110) H 10/20/20 05:37 Ammonia 26 umol/L (18-72) 10/17/20 15:16 Serum Total Protein 7.1 g/dL (5.8-8.1) 10/20/20 05:37 Albumin 3.2 g/dL (3.4-4.8) L 10/20/20 05:37 Urine Ketones Negative mg/dL (Negative) 10/17/20 16:35 Urine Blood 3+ (Negative) A 10/17/20 16:35 Urine Nitrite Negative (Negative) 10/17/20 16:35 Ur Leukocyte Esterase 25 Catherine/uL (Negative) A 10/17/20 16:35 Urine RBC Greater than 50 HPF (0-3) A 10/17/20 16:35 Urine WBC 4-6 HPF (0-3) A 10/17/20 16:35 Ur Squamous Epith Cells None Seen HPF (0-3) 10/17/20 16:35 Urine Bacteria None Seen HPF (None Seen) 10/17/20 16:35 - Radiology Interpretation MRI - head Additional Comment: MRI of the brain was consistent with subacute infarction in the right basal ganglia and moderate small vessel disease PN A/P (1) AMS (altered mental status) Code(s): R41.82 - ALTERED MENTAL STATUS, UNSPECIFIED Status: Acute (2) CVA (cerebrovascular accident) Code(s): I63.9 - CEREBRAL INFARCTION, UNSPECIFIED Status: Acute Qualifiers: CVA mechanism: thrombosis Precerebral and cerebral artery: vertebral artery Laterality of affected vessel: right Qualified Code(s): I63.011 - Cerebral infarction due to thrombosis of right vertebral artery (3) Hyponatremia Code(s): E87.1 - HYPO-OSMOLALITY AND HYPONATREMIA Status: Acute (4) Rib fracture Code(s): S22.39XA - FRACTURE OF ONE RIB, UNSP SIDE, INIT FOR CLOS FX Status: A cute (5) Alcoholism Code(s): F10.20 - ALCOHOL DEPENDENCE, UNCOMPLICATED Status: Chronic (6) CAD (coronary artery disease) Code(s): I25.10 - ATHSCL HEART DISEASE OF [place] CORONARY ARTERY W/O ANG PCTRS Status: Chronic Qualifiers: Coronary Disease-Associated Artery/Lesion type: [place] artery [place] vs. transplanted heart: [place] heart Associated angina: without angina Qualified Code(s): I25.10 - Atherosclerotic heart disease of [place] coronary artery without angina pectoris (7) PAD (peripheral artery disease) Code(s): I73.9 - PERIPHERAL VASCULAR DISEASE, UNSPECIFIED Status: Chronic (8) Tobacco abuse Code(s): Z72.0 - TOBACCO USE Status: Chronic - Plan Daily Plan: PT/OT, speech therapy, DVT proph w/lovenox, DVT proph w/SCDs Mr. Howard is a 65-year-old male with medical history significant for alcohol abuse, advanced dementia, hyponatremia, coronary artery disease s/p stents presented with altered mental status. He is s/p BKA. Altered mental status seems to be multifactorial due to advanced dementia, hyponatremia secondary to alcohol abuse and also recent subacute stroke in the right basal ganglia and superimposed hospital delirium. Mrs. Castellanos seems better today and is oriented to person and place. EEG reviewed which was negative for seizure activity but consistent with moderate generalized cerebral dysfunction which is nonspecific MRI of the brain reviewed which showed subacute lacunar infarctions in the right basal ganglia and moderate to severe small vessel disease. Carotid Dopplers did not reveal hemodynamically significant stenosis. Neurochecks every 4 hours. Continue aspirin and high intensity statin for secondary stroke prevention. Modified barium swallow completed. Speech is on board. Continue telemetry to rule out arrhythmias. 2D echo to evaluate for left ventricular ejection fraction is pending at this time. Continue home medications. Strict control of blood pressure and blood glucose. PT/OT/speech. Continue medical management per primary team. Plan discussed in detail with the nursing staff.
--- NOTE | 2020-10-23 17:28 | PDOC.GSPN ---
Surgery Progress Note: Subj - Subjective Narrative: Patient is more alert and interactive today. His states that he has been more with it and conversationally appropriate. She states that he worked well with physical therapy but was very worn out afterwards. Vital signs are okay. Blood pressure has intermittently been a little on the low side. Labs were not done today but are ordered for tomorrow. His dressing is clean without any visible drainage. He is still not able to straighten his leg out beyond about 120 degrees. Assessment/plan: Status post right below-knee amputation with decreased mental s tatus felt to be multifactorial. Speech therapy occupational therapy and physical therapy are working with him. Awaiting placement. He has a hematoma of his stump and resists straightening his knee and is at high risk of contracture and wound healing or skin issues which would necessitate above-knee amputation. We are keeping the stump off the bed and working with him as much as possible on range of motion. Awaiting placement. If mental status and stamina improve he may be appropriate for rehab. Surgery Progress Note: Obj - Vital signs Vital signs: Vital Signs - Most Recent Temp Pulse Resp BP Pulse Ox 98.3 F 87 20 133/60 100 10/23/20 11:33 10/23/20 14:22 10/23/20 11:33 10/23/20 16:34 10/23/20 11:33 Surgery Progress Note: Results - Labs Result Diagrams: 10/22/20 06:23 10/22/20 06:23 Lab results: Laboratory Results - last 12 hr 10/17/20 15:16 Vitamin B6 3.7 L
[2020-10-23] MEDS: Atorvastatin Calcium 40 MG TAB PO SCH (20:45)
[2020-10-24] MEDS: cloNIDine 0.1 MG TAB PO SCH ×4 (04:46→22:12)
[2020-10-24 06:56] LABS: #Eosinphils 0.2 thou/uL (0.0-0.7); #Lymphocytes 1.7 thou/uL (1.20-3.40); #Monocytes 0.6 thou/uL (0.11-0.59); #Neutrophils 7.5 thou/uL (1.40-6.50); %Basophils 0.2 % (0.0-1.0); %Eosinophils 1.6 % (0.0-10.0); %Lymphocytes 17.2 % (21.0-51.0); %Monocytes 6.1 % (0.0-10.0); %Neutrophils 74.8 % (42.0-75.0); Hemoglobin 8.1 g/dL (14.0-18.0); Mean Corpuscular HGB CONC 32.9 g/dL (32.0-36.0); Mean Corpuscular Hemoglobin 31.7 pg (27.0-31.0); Mean Corpuscular Volume 96.3 fL (78.0-98.0); Mean Platelet Volume 7.1 fL (7.4-10.4); Platelet Count 390 thou/uL (130-400); RBC Distribution Width 14.2 % (11.5-14.5); Red Blood Cell (RBC) Count 2.57 mill/uL (4.70-6.10); White Blood Cell (WBC) Count 10.1 thou/uL (4.8-10.8)
[2020-10-24 07:11] LABS: Anion Gap 14 mmol/L (10-20); BUN (Urea Nitrogen) 21 mg/dL (8.4-25.7); Calc. Creatinine Clearance 106 mL/min (70-130); Calcium 9.6 mg/dL (7.8-10.44); Carbon Dioxide 23 mmol/L (23-31); Chloride 102 mmol/L (98-107); Glucose 127 mg/dL (80-115); Potassium 3.5 mmol/L (3.5-5.1); Sodium 135 mmol/L (136-145)
[2020-10-24] MEDS: Mometasone 200 MCG/Formoterol 5 MCG 120 PUFF INHALER INH SCH ×2 (07:40→18:31)
[2020-10-24] MEDS: Docusate 100 MG CAP PO SCH ×3 (08:59→20:49)
[2020-10-24] MEDS: Bupropion 150 MG SR TAB PO SCH (08:59)
[2020-10-24] MEDS: Lisinopril 10 MG TAB PO SCH (08:59)
[2020-10-24] MEDS: Diazepam 5 MG TAB PO SCH ×2 (08:59→20:35)
[2020-10-24] MEDS: Aspirin 325 mg Enteric Coated Tablet PO SCH (08:59)
[2020-10-24] MEDS: Metoprolol Tartrate 100 MG TAB PO SCH ×2 (09:00→20:34)
[2020-10-24] MEDS: Saccharomyces boulardii 250 MG CAP PO SCH (09:00)
[2020-10-24] MEDS: Polyethylene Glycol 3350 17 GM Packet PO SCH (09:00)
[2020-10-24] MEDS: Ferrous Gluconate 324 MG TAB PO SCH (09:00)
[2020-10-24] MEDS: Thiamine 100 MG TAB PO SCH (09:00)
--- NOTE | 2020-10-24 12:16 | PDOC.NEUPN ---
- Subjective Encounter Date: 10/24/20 Subjective: Mr. Castellanos knows his name but seems more confused than yesterday and having visual hallucinations. Daughter at bedside who confirmed that there is acute mental status change since yesterday. - Objective Vital Signs & Weight: Vital Signs (12 hours) Temp Pulse Resp BP BP Pulse Ox 10/24/20 08:00 97.8 F 68 20 119/63 100 10/24/20 04:42 98.9 F 72 18 120/59 L 100 10/24/20 00:20 98.4 F 75 18 125/60 100 Weight Admit Weight 170 lb Weight 170 lb I&O: 10/23/20 10/24/20 10/25/20 06:59 06:59 06:59 Intake Total 640 480 Output Total 550 800 Balance 90 -320 Result Diagrams: 10/24/20 06:29 10/24/20 06:29 Radiology Reviewed by me: Yes EKG Reviewed by me: Yes ROS - Review of Systems ROS unobtainable: due to mental status - Medication Medications: Active Medications Generic Name Dose Route Start Last Admin Trade Name Freq PRN Reason Stop Dose Admin Hydrocodone Bitart/Acetaminophen 1 tab 10/16/20 12:11 10/22/20 20:15 Hydrocodone/Acetaminophen 5/325 Mg Tablet PO 1 tab Q4H PRN Administration Severe Pain (7-10) Aspirin 325 mg 10/22/20 09:00 10/24/20 08:59 Aspirin 325 Mg Enteric Coated Tablet PO 325 mg DAILY YAMILA Administration Atorvastatin Calcium 40 mg 10/21/20 21:00 10/23/20 20:45 Atorvastatin Calcium 40 Mg Tab PO 40 mg HS YAMILA Administration Bupropion HCl 150 mg 10/20/20 09:00 10/24/20 08:59 Bupropion 150 Mg Sr Tab PO 150 mg DAILY YAMILA Administration Clonidine 0.1 mg 10/20/20 10:00 10/24/20 09:00 Clonidine 0.1 Mg Tab PO 0.1 mg Q6H YAMILA Administration Diazepam 5 mg 10/20/20 21:00 10/24/20 08:59 Diazepam 5 Mg Tab PO 5 mg BID YAMILA Administration Docusate Sodium 100 mg 10/16/20 21:00 10/24/20 08:59 Docusate 100 Mg Cap PO 100 mg BID YAMILA Administration Ferrous Gluconate 324 mg 10/19/20 08:00 10/24/20 09:00 Ferrous Gluconate 324 Mg Tab PO 324 mg QAM-WM YAMILA Administration Haloperidol Lactate 2 mg 10/18/20 23:35 10/22/20 00:28 Haloperidol Lactate 5 Mg/Ml Vial SLOW IVP 2 mg Q4H PRN Administration Agitation Lisinopril 10 mg 10/17/20 09:00 10/24/20 08:59 Lisinopril 10 Mg Tab PO 10 mg DAILY YAMILA Administration Metoprolol Tartrate 100 mg 10/16/20 21:00 10/24/20 09:00 Metoprolol Tartrate 100 Mg Tab PO 100 mg BID YAMILA Administration Mometasone Furoate/Formoterol Fumar 1 puff 10/16/20 18:30 10/24/20 07:40 Mometasone 200 Mcg/Formoterol 5 Mcg 120 Puff Inhaler INH 1 puff BID-RT YAMILA Administration Morphine Sulfate 2 mg 10/16/20 12:11 10/22/20 06:02 Morphine 2 Mg/Ml Vial SLOW IVP 2 mg Q2H PRN Administration Moderate Breakthrough Pain Morphine Sulfate 4 mg 10/16/20 12:11 10/17/20 22:31 Morphine 4 Mg/Ml Vial SLOW IVP 4 mg Q2H PRN Administration Severe Breakthrough Pain Pantoprazole Sodium 40 mg 10/17/20 09:00 10/24/20 08:59 Pantoprazole 40 Mg Tab PO 40 mg DAILY YAMILA Administration Polyethylene Glycol 17 gm 10/17/20 09:00 10/24/20 09:00 Polyethylene Glycol 3350 17 Gm Packet PO 17 gm DAILY YAMILA Administration Quetiapine Fumarate 25 mg 10/18/20 21:00 10/23/20 20:45 Quetiapine Fumarate 25 Mg Tab PO 25 mg HS YAMILA Administration Saccharomyces Boulardii 250 mg 10/17/20 09:00 10/24/20 09:00 Saccharomyces Boulardii 250 Mg Cap PO 250 mg DAILY YAMILA Administration Sodium Chloride 10 ml 10/16/20 12:11 10/22/20 08:52 Flush - Normal Saline 10 Ml Syringe IVF 10 ml PRN PRN Administration Saline Flush Thiamine HCl 100 mg 10/20/20 09:00 10/24/20 09:00 Thiamine 100 Mg Tab PO 100 mg DAILY YAMILA Administration Tramadol HCl 50 mg 10/16/20 14:36 10/23/20 09:26 Tramadol Hcl 50 Mg Tab PO 50 mg Q4H PRN Administration Moderate Pain (4-6) Tramadol HCl 100 mg 10/16/20 14:36 10/19/20 08:39 Tramadol Hcl 50 Mg Tab PO 100 mg Q4H PRN Administration Severe Pain (7-10) - Exam General Appearance: NAD Eye: PERRL ENT: normocephalic atraumatic Neck: supple Respiratory: CTAB Cardiovascular: RRR Gastrointestinal: soft Extremities: no cyanosis Skin: normal turgor Neurological: no new deficit Musculoskeletal: normal tone, no muscle wasting PSYCH: oriented to person, flat affect Results - Labs Result Diagrams: 10/24/20 06:29 10/24/20 06:29 Lab results: WBC 10.1 thou/uL (4.8-10.8) 10/24/20 06:29 Hgb 8.1 g/dL (14.0-18.0) L 10/24/20 06:29 Hct 24.8 % (42.0-52.0) L 10/24/20 06:29 MCV 96.3 fL (78.0-98.0) 10/24/20 06:29 Plt Count 390 thou/uL (130-400) 10/24/20 06:29 Neutrophils % 74.8 % (42.0-75.0) 10/24/20 06:29 Sodium 135 mmol/L (136-145) L 10/24/20 06:29 Potassium 3.5 mmol/L (3.5-5.1) 10/24/20 06:29 Chloride 102 mmol/L (98-107) 10/24/20 06:29 Carbon Dioxide 23 mmol/L (23-31) 10/24/20 06:29 BUN 21 mg/dL (8.4-25.7) 10/24/20 06:29 Creatinine 0.78 mg/dL (0.7-1.3) 10/24/20 06:29 Glucose 127 mg/dL (80-115) H 10/24/20 06:29 Calcium 9.6 mg/dL (7.8-10.44) 10/24/20 06:29 Total Bilirubin 0.6 mg/dL (0.2-1.2) 10/20/20 05:37 AST 100 U/L (5-34) H 10/20/20 05:37 ALT 70 U/L (8-55) H 10/20/20 05:37 Alkaline Phosphatase 147 U/L (40-110) H 10/20/20 05:37 Ammonia 26 umol/L (18-72) 10/17/20 15:16 Serum Total Protein 7.1 g/dL (5.8-8.1) 10/20/20 05:37 Albumin 3.2 g/dL (3.4-4.8) L 10/20/20 05:37 Urine Ketones Negative mg/dL (Negative) 10/17/20 16:35 Urine Blood 3+ (Negative) A 10/17/20 16:35 Urine Nitrite Negative (Negative) 10/17/20 16:35 Ur Leukocyte Esterase 25 Catherine/uL (Negative) A 10/17/20 16:35 Urine RBC Greater than 50 HPF (0-3) A 10/17/20 16:35 Urine WBC 4-6 HPF (0-3) A 10/17/20 16:35 Ur Squamous Epith Cells None Seen HPF (0-3) 10/17/20 16:35 Urine Bacteria None Seen HPF (None Seen) 10/17/20 16:35 - Radiology Interpretation MRI - head Additional Comment: MRI of the head was consistent with subacute infarction PN A/P (1) AMS (altered mental status) Code(s): R41.82 - ALTERED MENTAL STATUS, UNSPECIFIED Status: Acute (2) CVA (cerebrovascular accident) Code(s): I63.9 - CEREBRAL INFARCTION, UNSPECIFIED Status: Acute Qualifiers: CVA mechanism: thrombosis Precerebral and cerebral artery: vertebral artery Laterality of affected vessel: right Qualified Code(s): I63.011 - Cerebral infarction due to thrombosis of right vertebral artery (3) Hyponatremia Code(s): E87.1 - HYPO-OSMOLALITY AND HYPONATREMIA Status: Acute (4) Rib fracture Code(s): S22.39XA - FRACTURE OF ONE RIB, UNSP SIDE, INIT FOR CLOS FX Status: Acute (5) Alcoholism Code(s): F10.20 - ALCOHOL DEPENDENCE, UNCOMPLICATED Status: Chronic (6) CAD (coronary artery disease) Code(s): I25.10 - ATHSCL HEART DISEASE OF [place] CORONARY ARTERY W/O ANG PCTRS Status: Chronic Qualifiers: Coronary Disease-Associated Artery/Lesion type: [place] artery [place] vs. transplanted heart: [place] heart Associated angina: without angina Qualified Code(s): I25.10 - Atherosclerotic heart disease of [place] coronary artery without angina pectoris (7) PAD (peripheral artery disease) Code(s): I73.9 - PERIPHERAL VASCULAR DISEASE, UNSPECIFIED Status: Chronic (8) Tobacco abuse Code(s): Z72.0 - TOBACCO USE Status: Chronic - Plan Daily Plan: PT/OT, speech therapy, DVT proph w/lovenox Mr. Howard is a 65-year-old male with medical history significant for alcohol abuse, advanced dementia, hyponatremia, coronary artery disease s/p stents p resented with altered mental status. He is s/p BKA. Altered mental status seems to be multifactorial due to advanced dementia, hyponatremia secondary to alcohol abuse and also recent subacute stroke in the right basal ganglia and superimposed hospital delirium. Mr. Castellanos seems more confused today and also having visual hallucination. This was confirmed by the daughter at bedside. Consider repeat EEG to rule out cortical irritability and repeat head CT to rule out acute intracranial process. Further recommendations will depend on the results of the testing. Prior EEG was negative for seizure activity but consistent with moderate generalized cerebral dysfunction which is nonspecific MRI of the brain reviewed which showed subacute lacunar infarctions in the right basal ganglia and moderate to severe small vessel disease. Carotid Dopplers did not reveal hemodynamically significant stenosis. Neurochecks every 4 hours. Continue aspirin and high intensity statin for secondary stroke prevention. Modified barium swallow completed. Speech is on board. Continue telemetry to rule out arrhythmias. 2D echo to evaluate for left ventricular ejection fraction is pending at this time. Continue home medications. Strict control of blood pressure and blood glucose. PT/OT/speech. Continue medical management per primary team. Plan discussed in detail with the patient's daughter and also with the primary attending.
--- NOTE | 2020-10-24 12:28 | PDOC.GSPN ---
Surgery Progress Note: Subj - Subjective Narrative: Patient is a little more confused today. His neurologist is going to repeat his EEG. He has been rejected for rehab due to his mental status and is awaiting placement in a custodial. Vital signs normal labs are okay. Hemoglobin is stable. Urine output is good. His flap is warm and the lateral portion looks better but the medial portion is still discolored. There is less swelling. Minimal old bloody drainage. There is an area on the bedolla which is slightly discolored which is of concern. Assessment/plan: Status post right below-knee amputation with postoperative hematoma which is stable. Skin of the flap is of questionable viability. Difficult to evaluate due to the bruising. No sign of infection. Still not straightening out his leg and unable to cooperate much with physical therapy. Surgically he is stable for transfer to a half-way facility but I want to see him back weekly to evaluate the status of his preop. If it does not appear to be healing he will need to return to the operating room for above-knee amputation. Surgery Progress Note: Obj - Vital signs Vital signs: Vital Signs - Most Recent Temp Pulse Resp BP Pulse Ox 97.8 F 68 20 119/63 100 10/24/20 08:00 10/24/20 08:00 10/24/20 08:00 10/24/20 08:00 10/24/20 08:00 Surgery Progress Note: Results - Labs Result Diagrams: 10/24/20 06:29 10/24/20 06:29 Lab results: Laboratory Results - last 12 hr 10/24/20 10/24/20 06:29 06:29 WBC 10.1 RBC 2.57 L Hgb 8.1 L Hct 24.8 L MCV 96.3 MCH 31.7 H MCHC 32.9 RDW 14.2 Plt Count 390 MPV 7.1 L Neutrophils % 74.8 Lymphocytes % 17.2 L Monocytes % 6.1 Eosinophils % 1.6 Basophils % 0.2 Neutrophils # 7.5 H Lymphocytes # 1.7 Monocytes # 0.6 H Eosinophils # 0.2 Basophils # 0.0 Sodium 135 L Potassium 3.5 Chloride 102 Carbon Dioxide 23 Anion Gap 14 BUN 21 Creatinine 0.78 Estimated GFR (MDRD) Greater than 90 Glucose 127 H Calcium 9.6
--- NOTE | 2020-10-24 12:44 | PDOC.HOSPP ---
- Subjective Encounter Date: 10/24/20 Encounter Time: 12:42 Subjective: oriented to person, no specific complaint - Objective Vital Signs & Weight: Vital Signs (12 hours) Temp Pulse Resp BP BP Pulse Ox 10/24/20 08:00 97.8 F 68 20 119/63 100 10/24/20 04:42 98.9 F 72 18 120/59 L 100 Weight Admit Weight 170 lb Weight 170 lb I&O: 10/23/20 10/24/20 10/25/20 06:59 06:59 06:59 Intake Total 640 480 Output Total 550 800 Balance 90 -320 Result Diagrams: 10/24/20 06:29 10/24/20 06:29 Hospitalist ROS - Medication Medications: Active Medications Generic Name Dose Route Start Last Admin Trade Name Freq PRN Reason Stop Dose Admin Hydrocodone Bitart/Acetaminophen 1 tab 10/16/20 12:11 10/22/20 20:15 Hydrocodone/Acetaminophen 5/325 Mg Tablet PO 1 tab Q4H PRN Administration Severe Pain (7-10) Aspirin 325 mg 10/22/20 09:00 10/24/20 08:59 Aspirin 325 Mg Enteric Coated Tablet PO 325 mg DAILY YAMILA Administration Atorvastatin Calcium 40 mg 10/21/20 21:00 10/23/20 20:45 Atorvastatin Calcium 40 Mg Tab PO 40 mg HS YAMILA Administration Bupropion HCl 150 mg 10/20/20 09:00 10/24/20 08:59 Bupropion 150 Mg Sr Tab PO 150 mg DAILY YAMILA Administration Clonidine 0.1 mg 10/20/20 10:00 10/24/20 09:00 Clonidine 0.1 Mg Tab PO 0.1 mg Q6H YAMILA Administration Diazepam 5 mg 10/20/20 21:00 10/24/20 08:59 Diazepam 5 Mg Tab PO 5 mg BID YAMILA Administration Docusate Sodium 100 mg 10/16/20 21:00 10/24/20 08:59 Docusate 100 Mg Cap PO 100 mg BID YAMILA Administration Ferrous Gluconate 324 mg 10/19/20 08:00 10/24/20 09:00 Ferrous Gluconate 324 Mg Tab PO 324 mg QAM-WM YAMILA Administration Haloperidol Lactate 2 mg 10/18/20 23:35 10/22/20 00:28 Haloperidol Lactate 5 Mg/Ml Vial SLOW IVP 2 mg Q4H PRN Administration Agitation Lisinopril 10 mg 10/17/20 09:00 10/24/20 08:59 Lisinopril 10 Mg Tab PO 10 mg DAILY YAMILA Administration Metoprolol Tartrate 100 mg 10/16/20 21:00 10/24/20 09:00 Metoprolol Tartrate 100 Mg Tab PO 100 mg BID YAMILA Administration Mometasone Furoate/Formoterol Fumar 1 puff 10/16/20 18:30 10/24/20 07:40 Mometasone 200 Mcg/Formoterol 5 Mcg 120 Puff Inhaler INH 1 puff BID-RT YAMILA Administration Morphine Sulfate 2 mg 10/16/20 12:11 10/22/20 06:02 Morphine 2 Mg/Ml Vial SLOW IVP 2 mg Q2H PRN Administration Moderate Breakthrough Pain Morphine Sulfate 4 mg 10/16/20 12:11 10/17/20 22:31 Morphine 4 Mg/Ml Vial SLOW IVP 4 mg Q2H PRN Administration Severe Breakthrough Pain Pantoprazole Sodium 40 mg 10/17/20 09:00 10/24/20 08:59 Pantoprazole 40 Mg Tab PO 40 mg DAILY YAMILA Administration Polyethylene Glycol 17 gm 10/17/20 09:00 10/24/20 09:00 Polyethylene Glycol 3350 17 Gm Packet PO 17 gm DAILY YAMILA Administration Quetiapine Fumarate 25 mg 10/18/20 21:00 10/23/20 20:45 Quetiapine Fumarate 25 Mg Tab PO 25 mg HS YAMILA Administration Saccharomyces Boulardii 250 mg 10/17/20 09:00 10/24/20 09:00 Saccharomyces Boulardii 250 Mg Cap PO 250 mg DAILY YAMILA Administration Sodium Chloride 10 ml 10/16/20 12:11 10/22/20 08:52 Flush - Normal Saline 10 Ml Syringe IVF 10 ml PRN PRN Administration Saline Flush Thiamine HCl 100 mg 10/20/20 09:00 10/24/20 09:00 Thiamine 100 Mg Tab PO 100 mg DAILY YAMILA Administration Tramadol HCl 50 mg 10/16/20 14:36 10/23/20 09:26 Tramadol Hcl 50 Mg Tab PO 50 mg Q4H PRN Administration Moderate Pain (4-6) Tramadol HCl 100 mg 10/16/20 14:36 10/19/20 08:39 Tramadol Hcl 50 Mg Tab PO 100 mg Q4H PRN Administration Severe Pain (7-10) - Exam General Appearance: awake alert Neck: no JVD Heart: RRR Respiratory: CTAB Gastrointestinal: soft, normal bowel sounds Extremities: no edema Hosp A/P (1) Encephalopathy Code(s): G93.40 - ENCEPHALOPATHY, UNSPECIFIED Status: Acute (2) Alcohol withdrawal delirium Code(s): F10.231 - ALCOHOL DEPENDENCE WITH WITHDRAWAL DELIRIUM Status: Acute (3) Alcoholism Code(s): F10.20 - ALCOHOL DEPENDENCE, UNCOMPLICATED Status: Chronic (4) CAD (coronary artery disease) Code(s): I25.10 - ATHSCL HEART DISEASE OF [place] CORONARY ARTERY W/O ANG PCTRS Status: Chronic Qualifiers: Coronary Disease-Associated Artery/Lesion type: [place] artery [place] vs. transplanted heart: [place] heart Associated angina: without angina Qualified Code(s): I25.10 - Atherosclerotic heart disease of [place] coronary artery without angina pectoris (5) COPD (chronic obstructive pulmonary disease) Status: Chronic (6) PAD (peripheral artery disease) Code(s): I73.9 - PERIPHERAL VASCULAR DISEASE, UNSPECIFIED Status: Chronic (7) Tobacco abuse Code(s): Z72.0 - TOBACCO USE Status: Chronic (8) Status post below knee amputation of right lower extremity Code(s): Z89.511 - ACQUIRED ABSENCE OF RIGHT LEG BELOW KNEE Status: Acute (9) CVA (cerebrovascular accident) Code(s): I63.9 - CEREBRAL INFARCTION, UNSPECIFIED Status: Acute Qualifiers: CVA mechanism: thrombosis Precerebral and cerebral artery: vertebral artery Laterality of affected vessel: right Qualified Code(s): I63.011 - Cerebral infarction due to thrombosis of right vertebral artery - Plan post op R BKA encephalopathy -stable MRI consistent with old lacunar infarctstable at prsent [employer] refuses Rehab- suggests SNF will need placement cont asa, statin, cont thiamine, MVI
--- NOTE | 2020-10-24 16:37 | PDOC.EEG ---
Neurology EEG Report - Report Report: This EEG was performed using 24 channel SanteV[employer] video EEG machine with 24 disc omid ctrodes. Digital analysis of the EEG was done for spike and seizure detection which revealed no abnormalities. Background: The posterior background rhythm was not observed. Hyperventilation: Not performed. Photic Stimulation: No significant response. Sleep: No stage change is observed. Spells: None EEG Diagnosis: Generalized irregular theta activity at times sharply contoured intermixed with occasional sharps seen throughout the recording. Absence of Posterior background rhythm. Clinical Interpretation: This EEG is consistent with interictal expression of epilepsy in the setting of moderate generalized nonspecific cerebral dysfunction. No electrographic seizures captured during the recording.
[2020-10-24] MEDS: Enoxaparin Sodium 40 MG/0.4 ML SYRINGE SC SCH (20:33)
[2020-10-24] MEDS: Atorvastatin Calcium 40 MG TAB PO SCH (20:35)
[2020-10-25] MEDS: cloNIDine 0.1 MG TAB PO SCH ×4 (04:11→21:39)
[2020-10-25] MEDS: Mometasone 200 MCG/Formoterol 5 MCG 120 PUFF INHALER INH SCH ×2 (07:20→18:25)
[2020-10-25] MEDS: Bupropion 150 MG SR TAB PO SCH (08:33)
[2020-10-25] MEDS: Aspirin 325 mg Enteric Coated Tablet PO SCH (08:34)
[2020-10-25] MEDS: Lisinopril 10 MG TAB PO SCH (08:34)
[2020-10-25] MEDS: Diazepam 5 MG TAB PO SCH ×2 (08:35→21:38)
[2020-10-25] MEDS: Ferrous Gluconate 324 MG TAB PO SCH (08:36)
[2020-10-25] MEDS: Thiamine 100 MG TAB PO SCH (08:36)
[2020-10-25] MEDS: Metoprolol Tartrate 100 MG TAB PO SCH ×2 (08:37→21:39)
[2020-10-25] MEDS: Saccharomyces boulardii 250 MG CAP PO SCH (08:38)
[2020-10-25] MEDS: Docusate 100 MG CAP PO SCH ×2 (08:40→21:39)
[2020-10-25] MEDS: Polyethylene Glycol 3350 17 GM Packet PO SCH (08:42)
--- NOTE | 2020-10-25 10:03 | CT ---
Head CT without contrast 10/25/2020: COMPARISON: 07/30/2020 HISTORY: Altered mental status, history of stroke TECHNIQUE: Axial CT imaging at 5 mm intervals from vertex through skull base without contrast FINDINGS: The paranasal sinuses and mastoid air cells are unremarkable. There is no displaced calvarial fracture, intracranial hemorrhage, midline shift, or mass effect. The re is vascular calcification of the distal vertebral arteries and the cavernous carotid arteries. There are patchy areas of decreased density within the jeremiah consistent with areas of prior infarction . There are multiple foci of hypodensity in the periventricular, deep, and subcortical white matter consistent with small vessel disease. Mild cerebral volume loss noted. IMPRESSION: No intracranial hemorrhage. Evidence of small vessel disease/prior infarctions and cerebr al volume loss.
--- NOTE | 2020-10-25 14:36 | PDOC.HOSPP ---
- Subjective Encounter Date: 10/25/20 Encounter Time: 14:34 Subjective: orieted to person. rambling about moving trucks, etc - Objective Vital Signs & Weight: Vital Signs (12 hours) Temp Pulse Resp BP BP Pulse Ox 10/25/20 12:00 97.7 F 62 20 102/57 L 10/25/20 08:32 98 10/25/20 07:43 98.3 F 71 16 134/62 10/25/20 03:51 97.8 F 70 14 135/64 98 Weight Admit Weight 170 lb Weight 170 lb I&O: 10/24/20 10/25/20 10/26/20 06:59 06:59 06:59 Intake Total 480 480 Output Total 800 600 Balance -320 -120 Result Diagrams: 10/24/20 06:29 10/24/20 06:29 Hospitalist ROS - Medication Medications: Active Medications Generic Name Dose Route Start Last Admin Trade Name Freq PRN Reason Stop Dose Admin Hydrocodone Bitart/Acetaminophen 1 tab 10/16/20 12:11 10/22/20 20:15 Hydrocodone/Acetaminophen 5/325 Mg Tablet PO 1 tab Q4H PRN Administration Severe Pain (7-10) Aspirin 325 mg 10/22/20 09:00 10/25/20 08:34 Aspirin 325 Mg Enteric Coated Tablet PO 325 mg DAILY YAMILA Administration Atorvastatin Calcium 40 mg 10/21/20 21:00 10/24/20 20:35 Atorvastatin Calcium 40 Mg Tab PO 40 mg HS YAMILA Administration Bupropion HCl 150 mg 10/20/20 09:00 10/25/20 08:33 Bupropion 150 Mg Sr Tab PO 150 mg DAILY YAMILA Administration Clonidine 0.1 mg 10/20/20 10:00 10/25/20 08:35 Clonidine 0.1 Mg Tab PO 0.1 mg Q6H YAMILA Administration Diazepam 5 mg 10/20/20 21:00 10/25/20 08:35 Diazepam 5 Mg Tab PO 5 mg BID YAMILA Administration Docusate Sodium 100 mg 10/16/20 21:00 10/25/20 08:40 Docusate 100 Mg Cap PO 100 mg BID YAMILA Administration Enoxaparin Sodium 40 mg 10/24/20 21:00 10/24/20 20:33 Enoxaparin Sodium 40 Mg/0.4 Ml Syringe SC 40 mg 2100 YAMILA Administration Ferrous Gluconate 324 mg 10/19/20 08:00 10/25/20 08:36 Ferrous Gluconate 324 Mg Tab PO 324 mg QAM-WM YAMILA Administration Haloperidol Lactate 2 mg 10/18/20 23:35 10/22/20 00:28 Haloperidol Lactate 5 Mg/Ml Vial SLOW IVP 2 mg Q4H PRN Administration Agitation Lisinopril 10 mg 10/17/20 09:00 10/25/20 08:34 Lisinopril 10 Mg Tab PO 10 mg DAILY YAMILA Administration Metoprolol Tartrate 100 mg 10/16/20 21:00 10/25/20 08:37 Metoprolol Tartrate 100 Mg Tab PO 100 mg BID YAMILA Administration Mometasone Furoate/Formoterol Fumar 1 puff 10/16/20 18:30 10/25/20 07:20 Mometasone 200 Mcg/Formoterol 5 Mcg 120 Puff Inhaler INH 1 puff BID-RT YAMILA Administration Pantoprazole Sodium 40 mg 10/17/20 09:00 10/25/20 08:34 Pantoprazole 40 Mg Tab PO 40 mg DAILY YAMILA Administration Polyethylene Glycol 17 gm 10/17/20 09:00 10/25/20 08:42 Polyethylene Glycol 3350 17 Gm Packet PO Not Given DAILY YAMILA Quetiapine Fumarate 25 mg 10/18/20 21:00 10/24/20 20:34 Quetiapine Fumarate 25 Mg Tab PO 25 mg HS YAMILA Administration Saccharomyces Boulardii 250 mg 10/17/20 09:00 10/25/20 08:38 Saccharomyces Boulardii 250 Mg Cap PO 250 mg DAILY YAMILA Administration Sodium Chloride 10 ml 10/16/20 12:11 10/22/20 08:52 Flush - Normal Saline 10 Ml Syringe IVF 10 ml PRN PRN Administration Saline Flush Thiamine HCl 100 mg 10/20/20 09:00 10/25/20 08:36 Thiamine 100 Mg Tab PO 100 mg DAILY YAMILA Administration Tramadol HCl 50 mg 10/16/20 14:36 10/23/20 09:26 Tramadol Hcl 50 Mg Tab PO 50 mg Q4H PRN Administration Moderate Pain (4-6) Tramadol HCl 100 mg 10/16/20 14:36 10/19/20 08:39 Tramadol Hcl 50 Mg Tab PO 100 mg Q4H PRN Administration Severe Pain (7-10) Hosp A/P (1) Encephalopathy Code(s): G93.40 - ENCEPHALOPATHY, UNSPECIFIED Status: Acute (2) Alcohol withdrawal delirium Code(s): F10.231 - ALCOHOL DEPENDENCE WITH WITHDRAWAL DELIRIUM Status: Acute (3) Alcoholism Code(s): F10.20 - ALCOHOL DEPENDENCE, UNCOMPLICATED Status: Chronic (4) CAD (coronary artery disease) Code(s): I25.10 - ATHSCL HEART DISEASE OF [place] CORONARY ARTERY W/O ANG PCTRS Status: Chronic Qualifiers: Coronary Disease-Associated Artery/Lesion type: [place] artery [place] vs. transplanted heart: [place] heart Associated angina: without angina Qualified Code(s): I25.10 - Atherosclerotic heart disease of [place] coronary artery without angina pectoris (5) COPD (chronic obstructive pulmonary disease) Status: Chronic (6) PAD (peripheral artery disease) Code(s): I73.9 - PERIPHERAL VASCULAR DISEASE, UNSPECIFIED Status: Chronic (7) Tobacco abuse Code(s): Z72.0 - TOBACCO USE Status: Chronic (8) Status post below knee amputation of right lower extremity Code(s): Z89.511 - ACQUIRED ABSENCE OF RIGHT LEG BELOW KNEE Status: Acute (9) CVA (cerebrovascular accident) Code(s): I63.9 - CEREBRAL INFARCTION, UNSPECIFIED Status: Acute Qualifiers: CVA mechanism: thrombosis Precerebral and cerebral artery: vertebral artery Laterality of affected vessel: right Qualified Code(s): I63.011 - Cerebral infarction due to thrombosis of right vertebral artery - Plan post op R BKA encephalopathy -stable MRI consistent with old lacunar infarct.stable at present [employer] refuses Rehab- suggests SNF will need placement cont asa, statin, cont thiamine, MVI the patient quite possibly has chronic encephalopathy, for example [place]ern[place] would be likely. doubt he will improve he still needs physical tx for learning to walk, extensionR Knee
[2020-10-25] MEDS: Enoxaparin Sodium 40 MG/0.4 ML SYRINGE SC SCH (21:38)
[2020-10-25] MEDS: traMADol HCl 50 MG TAB PO PRN (21:38)
[2020-10-25] MEDS: Atorvastatin Calcium 40 MG TAB PO SCH (21:39)
[2020-10-25] MEDS: HYDROcodone/Acetaminophen 5/325 mg Tablet PO PRN (23:52)
[2020-10-26] MEDS: traMADol HCl 50 MG TAB PO PRN (03:45)
[2020-10-26] MEDS: cloNIDine 0.1 MG TAB PO SCH ×2 (03:45→12:44)
[2020-10-26 08:27] VITALS: TEMP 97.8
[2020-10-26] MEDS: Diazepam 5 MG TAB PO SCH (08:33)
[2020-10-26] MEDS: Docusate 100 MG CAP PO SCH (08:33)
[2020-10-26] MEDS: Bupropion 150 MG SR TAB PO SCH (08:33)
[2020-10-26] MEDS: Polyethylene Glycol 3350 17 GM Packet PO SCH (08:33)
[2020-10-26] MEDS: Aspirin 325 mg Enteric Coated Tablet PO SCH (08:33)
[2020-10-26] MEDS: Saccharomyces boulardii 250 MG CAP PO SCH (08:33)
[2020-10-26] MEDS: Lisinopril 10 MG TAB PO SCH (08:33)
[2020-10-26] MEDS: Thiamine 100 MG TAB PO SCH (08:33)
[2020-10-26] MEDS: Ferrous Gluconate 324 MG TAB PO SCH (08:33)
[2020-10-26] MEDS: Metoprolol Tartrate 100 MG TAB PO SCH (08:34)
[2020-10-26] MEDS: Mometasone 200 MCG/Formoterol 5 MCG 120 PUFF INHALER INH SCH (09:57)
[2020-10-26 12:44] VITALS: BP 128/58
--- NOTE | 2020-10-27 10:50 | DIS ---
DATE OF ADMISSION: 10/16/2020 DATE OF DISCHARGE: 10/26/2020 Transfer on 10/26/2020. FINAL DIAGNOSES: 1. Severe peripheral vascular disease. 2. Right foot abscess. 3. Chronic alcohol abuse. 4. Multiple lacunar stroke history. 5. Encephalopathy, multifactorial. 6. Postoperative hematoma. 7. Chronic obstructive pulmonary disease. 8. Hypertension. 9. Coronary artery disease. PROCEDURES: Right below-knee amputation on 10/16/2020. Neurology consult with CT of the brain, MRI of the brain, and EEG. HISTORY OF PRESENT ILLNESS: Mr. Castellanos is a 65-year-old male with multiple longstanding medical problems. He underwent a right toe amputation for wet gangrene, but did not heal and developed a worsening abscess extending into the mid foot. He decided to undergo amputation of the foot. His mental status was somewhat variable prior to surgery, but after undergoing a below-knee amputation, it was considerably worse. Medicine was consulted, and a CT of the head obtained, which did not show any acute changes, just small-vessel disease and some . He was felt to have multifactorial encephalopathy, mostly related to his chronic alcohol abuse. His mental status continued to worsen, so Neurology was consulted, and EEGs and MRIs were obtained which did not show any acute process. His EEG was interpreted as being interictal but he never had any documented or observed seizure activity. He did develop a hematoma in his stump postoperatively and had difficulty cooperating with physical therapy to straighten his knee, although his knee could be straightened under anesthesia. He had significant discoloration of the stump, but had sensation to light touch, and the viability of the skin could not be definitively determined. Discussion was had with the patient's and daughter regarding observation versus revision to above-knee amputation, and the decision was made to proceed with observation for now since he seems to worsen mentally each time he undergoes anesthesia. He did have some skin damage which was felt to be due to a stump atomic process engineer which was placed and which was subsequently removed. He had some discoloration of the skin over his knee and his upper thigh, but this did not appear to be full-thickness. At the time of his discharge, he was medically stable with waxing and waning mental status, still expressing visual hallucinations and oriented only to self and occasionally to place. He is going to return [facility] 1 week's time for a wound check to determine if the stump is viable. He was started on antiplatelets and anticholesterol medication for his small-vessel brain disease, and thiamine and Seroquel for chronic alcohol abuse. He is going to the [facility] bed. Transfer medications include: 1. Aspirin. 2. Atorvastatin. 3. Lisinopril. 4. Metoprolol. 5. Omeprazole. 6. Symbicort. 7. Vitamin D3. 8. Valium. 9. Iron. 10. DuoNebs. 11. Dulera inhaler. 12. MiraLax. 13. Seroquel. 14. Florastor. 15. Thiamine. Job ID: [id number]
--- NOTE | 2020-10-31 03:58 | PQF ---
CLINICAL DOCUMENTATION CLARIFICATION FORM: Dear : Ofelia Chapa Date / Time: 10/31/20356 Please exercise your independent, professional judgment in responding to the clarification form. Clinical indicators are provided on the bottom of this form for your revie Clarification of Pathology report: Please check appropriate box(es): [ ] Agree w the pathology finding of: Ischemic Ulceration (Gangrene), Acute Osteomyelitis, Atherosclerosis [ ] Other explanation of pathology findings (please specify) [ ] Other diagnosis, please specify [ ] Unable to determine To be completed by CDI/Coding staff for physician review: Present Clinical Indicators - Signs / Symptoms / Labs Results and Location in Medical Record [x] Ischemic Ulceration (Gangrene), Acute Osteomyelitis, Atherosclerosis Path report 10/16 [x] s/p right second toe amputation for wet gangrene with non healing wound and exposed bone Operative report 10/16 Dr Chapa [x] He presented with worsening of wound and a new obvious abscess draining out the plantar surface of his midfoot Operative report 10/16 Dr Chapa Present Risk Factors Results and Location in Medical Record [x] Right foot Abscess Operative report 10/16 Dr Chapa [x] Peripheral vascular Disease Operative report 10/16 Dr Chapa [x] Smoker Scanned H&P [x] DM Scanned H&P Present Treatments Results and Location in Medical Record [x] BKA Operative report 10/16 Dr Chapa [x] IV Rocephin 1 gm DEC 09 CDS/Glost Kiln Operator Signature: Savannah Posadacarlee Phone #: ext [phone] Date/Time: 10/31/20356 This is a permanent part of the Medical Record [facility]
--- NOTE | 2020-10-31 03:59 | PQF ---
CLINICAL DOCUMENTATION CLARIFICATION FORM: Dear : Ofelia Chapa Date / Time: 10/31/20358 Please exercise your independent, professional judgment in responding to the clarification form. Clinical indicators are provided on the bottom of this form for your review Please check appropriate box(es): [ ] Foot abscess is a post complication of stump amputation [ ] Foot abscess is due to progression of PVD disease [ ] Other diagnosis, please specify [ ] Unable to determine Physician Signature: Date/Time: For continuity of documentation, please document condition throughout progress notes and discharge summary. Thank You. To be completed by CDI/Coding staff for physician review: Present Clinical Indicators - Signs / Symptoms / Labs Results and Location in Medical Record [x] Ischemic Ulceration (Gangrene), Acute Osteomylitis, Atherosclerosis Path report 10/16 [x] s/p right second toe amputation for wet gangrene with non healing wound and exposed bone Operative report 10/16 Dr Chapa [x] He presented with worsening of wound and a new obvious abscess draining out the plantar surface of his midfoot Operative report 10/16 Dr Chapa [x] He was s/p right second toe amputation in 09/13/20 Consult 10/17 [x] Right foot abscess in setting of severe PVD Consult 10/17 [x] WBC: 10/16=12.1 10/17=14.3 10/22=11.1 Laboratory 10/16 Present Risk Factors Results and Location in Medical Record [x] Right foot Abscess Operative report 10/16 Dr Chapa [x] Peripheral vascular Disease Operative report 10/16 Dr Chapa [x] Smoker Scanned H&P [x] DM Scanned H&P [x] s/p toe amputation Scanned H&P Present Treatments Results and Location in Medical Record [x] BKA Operative report 10/16 Dr Chapa [x] IV Rocephin 1 gm DEC 09 CDS/Occupational Therapy Professor Signature: Savannah Dickson Bryanna Phone #: ext [phone] Date/Time: 10/31/20358 This is a permanent part of the Medical Record [facility]
== END 2020-10-26 14:16 | disposition swing bed (61) | DRG 239 ==
LOC: SURG A 06:54 → 3SE 10-21 20:07
PROVIDERS: ADMIT Surgery; ATTEND Surgery
PROC: 0Y6H0Z1 Detachment at Right Lower Leg, High, Open Approach (ICD-10-PCS; principal; 2020-10-16)
PROC: HZ2ZZZZ Detoxification Services for Substance Abuse Treatment (ICD-10-PCS; 2020-10-20)
DX: E11.52 Type 2 diabetes mellitus with diabetic peripheral angiopathy with gangrene (principal); G92 Toxic encephalopathy; I63.011 Cerebral infarction due to thrombosis of right vertebral artery; I70.261 Atherosclerosis of native arteries of extremities with gangrene, right leg; T83.511A Infection and inflammatory reaction due to indwelling urethral catheter, initial encounter; N39.0 Urinary tract infection, site not specified; L02.611 Cutaneous abscess of right foot; H46.9 Unspecified optic neuritis; D62 Acute posthemorrhagic anemia; E87.1 Hypo-osmolality and hyponatremia; F03.91 Unspecified dementia, unspecified severity, with behavioral disturbance; F10.27 Alcohol dependence with alcohol-induced persisting dementia; F10.231 Alcohol dependence with withdrawal delirium; F05 Delirium due to known physiological condition; L76.32 Postprocedural hematoma of skin and subcutaneous tissue following other procedure; L97.919 Non-pressure chronic ulcer of unspecified part of right lower leg with unspecified severity; M86.8X7 Other osteomyelitis, ankle and foot; Z20.822 Contact with and (suspected) exposure to COVID-19; G31.2 Degeneration of nervous system due to alcohol; T87.89 Other complications of amputation stump; Y83.5 Amputation of limb(s) as the cause of abnormal reaction of the patient, or of later complication, without mention of misadventure at the time of the procedure; I25.10 Atherosclerotic heart disease of native coronary artery without angina pectoris; I10 Essential (primary) hypertension; K21.9 Gastro-esophageal reflux disease without esophagitis; J43.9 Emphysema, unspecified; F17.210 Nicotine dependence, cigarettes, uncomplicated; F41.9 Anxiety disorder, unspecified; K70.10 Alcoholic hepatitis without ascites; Y84.6 Urinary catheterization as the cause of abnormal reaction of the patient, or of later complication, without mention of misadventure at the time of the procedure; Z79.899 Other long term (current) drug therapy; Z79.82 Long term (current) use of aspirin; Z79.51 Long term (current) use of inhaled steroids; Z80.0 Family history of malignant neoplasm of digestive organs; Z82.49 Family history of ischemic heart disease and other diseases of the circulatory system; Z88.1 Allergy status to other antibiotic agents; Z88.0 Allergy status to penicillin; K70.30 Alcoholic cirrhosis of liver without ascites; Z95.5 Presence of coronary angioplasty implant and graft; N31.8 Other neuromuscular dysfunction of bladder; D50.9 Iron deficiency anemia, unspecified; Z89.421 Acquired absence of other right toe(s); E11.69 Type 2 diabetes mellitus with other specified complication
CPT/HCPCS: 36415; 70450; 70551; 74230; 80048; 80053; 80074; 81001; 82140; 82607; 82728; 82746; 83036; 83540; 83550; 83735; 84100; 84207; 84439; 84443; 84481; 85025; 85046; 86780; 87040; 87070; 87086; 87205; 88307; 88311; 93306; 93880; 95712; 95816; 95819; 95957; J0696; J1100; J1630; J1650; J2001; J2060; J2270; J2370; J2405; J2704; J3010; J3411; J3475; J3480; J3490; J7042; J7050; L8440; S0020; U0002

== ENCOUNTER 2020-11-01 16:30 | Inpatient (IN) | payer MEDICARE ==
[2020-11-05] MEDS ORDERED: Ondansetron PF 4 MG/2 ML Vial ONE (09:33)
[2020-11-05] MEDS ORDERED: PHENYLEPHRINE-NS 100 MCG/ML 10 ML SYRINGE ONE ×2 (09:33→13:35)
[2020-11-05] MEDS ORDERED: ePHEDrine 50 MG/ML VIAL ONE (09:33)
[2020-11-05] MEDS ORDERED: Bupivacaine HCl 0.5%/Epinephrine 1:200,000/PF 30 ml Vial ONE (09:33)
[2020-11-05] MEDS ORDERED: PROPOFOL 200 MG/20 ML VIAL ONE (09:33)
[2020-11-05] MEDS ORDERED: Lidocaine 1% PF 5 ML VIAL ONE (09:33)
[2020-11-05] MEDS ORDERED: Lidocaine 2% Jelly 5 ML TUBE ONE (12:05)
[2020-11-05] MEDS ORDERED: Fentanyl 100 MCG/2 ML VIAL ONE (12:05)
[2020-11-05] MEDS ORDERED: Neomycin-Polymyxin 1 ML AMP ONE (12:09)
[2020-11-05] MEDS ORDERED: Levofloxacin 500 mg/D5W 100 ml Premix Bag ONE (12:10)
[2020-11-05] MEDS ORDERED: Promethazine HCl 25 MG/ML VIAL SLOW IVP PRN (14:30)
[2020-11-05] MEDS ORDERED: Promethazine HCl 25 MG/ML VIAL IM PRN (14:30)
[2020-11-05] MEDS ORDERED: Ondansetron HCl/PF 4 MG/2 ML Vial IVP PRN (14:30)
[2020-11-05 16:51] VITALS: BMI 18.8
[2020-11-05] MEDS ORDERED: Acetaminophen 325 MG TAB PO PRN (17:21)
[2020-11-05] MEDS ORDERED: Morphine 2 MG/ML VIAL SLOW IVP PRN (17:23)
[2020-11-05] MEDS ORDERED: Artificial Tear Sol 15 ML BOT EA EYE PRN (17:25)
[2020-11-05] MEDS ORDERED: Cepastat Lozenges 1 LOZ PO PRN (17:27)
[2020-11-05] MEDS ORDERED: Bisacodyl 5 MG TAB PO PRN (17:28)
[2020-11-05] MEDS ORDERED: Calcium Carbonate 500 MG ChewTAB PO PRN (17:29)
[2020-11-05] MEDS ORDERED: Sodium Chloride 0.65% Nasal 44 ML BOT EA NARE PRN (17:34)
[2020-11-05] MEDS ORDERED: Amino Acids 4.25 %/Dextrose 5% 2,000 ML IV SCH (17:45)
[2020-11-05] MEDS: traMADol HCl 50 MG TAB PO PRN (21:48)
[2020-11-05] MEDS: Atorvastatin Calcium 40 MG TAB PO SCH (21:49)
[2020-11-05] MEDS: Metoprolol Tartrate 100 MG TAB PO SCH (21:50)
[2020-11-06 03:54] LABS: #Eosinphils 0.1 thou/uL (0.0-0.7); #Lymphocytes 1.7 thou/uL (1.20-3.40); #Monocytes 0.7 thou/uL (0.11-0.59); #Neutrophils 8.7 thou/uL (1.40-6.50); %Basophils 0.4 % (0.0-1.0); %Eosinophils 0.8 % (0.0-10.0); %Lymphocytes 14.8 % (21.0-51.0); %Monocytes 6.3 % (0.0-10.0); %Neutrophils 77.7 % (42.0-75.0); Hemoglobin 9.4 g/dL (14.0-18.0); Mean Corpuscular HGB CONC 32.6 g/dL (32.0-36.0); Mean Corpuscular Hemoglobin 30.6 pg (27.0-31.0); Mean Corpuscular Volume 93.8 fL (78.0-98.0); Mean Platelet Volume 7.9 fL (7.4-10.4); Platelet Count 304 thou/uL (130-400); RBC Distribution Width 14.6 % (11.5-14.5); Red Blood Cell (RBC) Count 3.08 mill/uL (4.70-6.10); White Blood Cell (WBC) Count 11.1 thou/uL (4.8-10.8)
[2020-11-06 04:10] LABS: Anion Gap 14 mmol/L (10-20); BUN (Urea Nitrogen) 26 mg/dL (8.4-25.7); Calc. Creatinine Clearance 76 mL/min (70-130); Calcium 9.5 mg/dL (7.8-10.44); Carbon Dioxide 20 mmol/L (23-31); Chloride 102 mmol/L (98-107); Glucose 117 mg/dL (80-115); Potassium 4.6 mmol/L (3.5-5.1); Sodium 131 mmol/L (136-145)
[2020-11-06] MEDS: Ferrous Gluconate 324 MG TAB PO SCH (08:36)
[2020-11-06] MEDS: Cholecalciferol 1,000 UNITS (25 MCG) TAB PO SCH (08:37)
[2020-11-06] MEDS: Bupropion 150 MG SR TAB PO SCH (08:37)
[2020-11-06] MEDS: Saccharomyces boulardii 250 MG CAP PO SCH (08:37)
[2020-11-06] MEDS: Aspirin Chewable 81 MG TAB PO SCH (08:37)
[2020-11-06] MEDS: Lisinopril 10 MG TAB PO SCH (08:41)
[2020-11-06] MEDS: Metoprolol Tartrate 100 MG TAB PO SCH ×3 (08:41→20:34)
[2020-11-06] MEDS ORDERED: Polyethylene Glycol 3350 17 GM Packet PO SCH (09:00)
[2020-11-06] MEDS ORDERED: Thiamine 100 MG TAB PO SCH (09:00)
--- NOTE | 2020-11-06 12:46 | PDOC.OP ---
Operative Note - Operative Note Operative Note: PROCEDURE: Right above-knee amputation SURGEON: Ofelia Chapa M.D. DATE: 11/05/2020 PREOPERATIVE DIAGNOSIS: Severe peripheral vascular disease with ischemic below- knee amputation POSTOPERATIVE DIAGNOSIS: Severe peripheral vascular disease with ischemic below- knee amputation HISTORY: Patient with wet gangrene of the right toe that did not heal after a right toe amputation and developed a foot abscess requiring below-knee amputation. He developed a hematoma of the stump and there was some duskiness of the stump which has progressed into nithya ischemia. In addition he has developed gangrenous patches of skin on his anterior bedolla and knee. Above-knee amputation was recommended last week but the patient declined. He has agreed to above-knee amputation this week. In the interim he has also developed some purulent drainage from the stump incision. FINDINGS: Somewhat pale but viable contractile muscle at the level of the mid thigh. PROCEDURE IN DETAIL: After informed consent was obtained and appropriate preoperative antibiotics were administered patient was taken to the operating room where he was placed in the supine position and general anesthesia was administered. He was prepped and draped in the standard sterile fashion and the below-knee amputation stump was excluded from the sterile field with a stockinette and Coban. Equal anterior and posterior flaps were marked on the skin at the level of the mid thigh above the ischemic skin changes but below the incision for his dynamic hip screw. The skin was incised using a scalpel and the subcutaneous tissues divided using electrocautery. The saphenous vein was ligated as it was encountered and muscle divided using electrocautery. The femoral vessels were individually suture ligated as they were encountered. The femoral artery appeared to be patent but there was not a strongly palpable pulse. The muscles appeared somewhat pale and atrophic but were contractile and viable in appearance. The sciatic nerve was drawn down under tension when it was encountered, ligated and divided and allowed to retract into the proximal soft tissues. The periosteum of the femur was elevated proximally and a Gigli saw used to transect the femur taking care to protect the soft tissues. The edges were smoothed using a rongeur and a bone rasp. The wound was copiously irrigated and hemostasis attained using electrocautery. The muscular fascia was reapproximated in interrupted [id number] 2-0 Vicryl sutures. The deep dermis was approximated with 3-0 interrupted Vicryl sutures and the skin was closed with skin laurie. Xeroform, gauze and Kerlix dressings were placed and secured with an Miguel bandage. The patient was extubated and taken to recovery in good condition. Estimated blood loss was minimal. There were no complications. Specimen is right leg.
[2020-11-06] MEDS ORDERED: Bisacodyl 5 MG TAB PO PRN (13:18)
[2020-11-06 13:31] LABS: Magnesium 1.7 mg/dL (1.6-2.6); Phosphorus 3.4 mg/dL (2.3-4.7)
--- NOTE | 2020-11-06 13:53 | PDOC.GSPN ---
Surgery Progress Note: Subj - Subjective Narrative: Patient states that he is feeling "great" this morning. He denies pain in his leg. His states that he has been very sleepy today and did not work with occupational therapy when they came by earlier. Vital signs are okay currently. He had tachycardia during the night and early this morning but that has improved. His nurse states that his metoprolol was held last night due to his blood pressure running low but she did give it this morning. I ordered an EKG which showed sinus rhythm with PACs. No acute ST changes were noted. Labs are okay. Stump dressing is clean. 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 He had some purulent drainage from the BKA site so I have elected to continue his levofloxacin for a few days postoperatively. He has been drowsy today similar to how he was after his last surgery. He had an extensive work-up at that time including head CTs, MRI, neurology consult and EEGs, and was felt to have multifactorial encephalopathy. If he does not improve we may ask neurology to see him again. His 's goal is to get him to the point where he can transfer independently and she can take him home. He has quite a ways to go before he gets to that point but we will continue physical and occupational therapy. He has not eaten well today but he is on Clinimix. I have asked Dr. Wong to come by and see him due to him developing gangrene of his BKA. However, I think he will heal his AKA, especially given his clinical picture of much improved pain in the leg. Surgery Progress Note: Obj - Vital signs Vital signs: Vital Signs - Most Recent Temp Pulse Resp BP Pulse Ox 98.1 F 92 26 H 116/62 99 11/06/20 12:30 11/06/20 12:30 11/06/20 12:30 11/06/20 12:30 11/06/20 12:30 Surgery Progress Note: Results - Labs Result Diagrams: 11/06/20 03:42 11/06/20 03:42 Lab results: Laboratory Results - last 12 hr 11/06/20 11/06/20 11/06/20 03:42 03:42 03:42 WBC 11.1 H RBC 3.08 L Hgb 9.4 L Hct 28.9 L MCV 93.8 MCH 30.6 MCHC 32.6 RDW 14.6 H Plt Count 304 MPV 7.9 Neutrophils % 77.7 H Lymphocytes % 14.8 L Monocytes % 6.3 Eosinophils % 0.8 Basophils % 0.4 Neutrophils # 8.7 H Lymphocytes # 1.7 Monocytes # 0.7 H Eosinophils # 0.1 Basophils # 0.0 Sodium 131 L Potassium 4.6 Chloride 102 Carbon Dioxide 20 L Anion Gap 14 BUN 26 H Creatinine 0.86 Estimated GFR (MDRD) 90 Glucose 117 H Calcium 9.5 Phosphorus 3.4 Magnesium 1.7
--- NOTE | 2020-11-06 16:05 | CON ---
DATE OF CONSULTATION: 11/06/2020 PRIMARY CARE PROVIDER: Dr. Tarun King. PRIMARY SERVICE ATTENDING: Dr. Ofelia Chapa with General Surgery Service. REASON FOR CONSULTATION: General medical management. HISTORY OF PRESENT ILLNESS: This is a 65-year-old male, who was admitted under the General Surgery service after presenting with gangrenous changes of previous right rhliz-tey-dqiz amputation in the context of severe peripheral vascular disease. The patient had previously undergone evaluation with primary right kgprt-kgm-cefa amputation on 10/16/2020, after complications of a right foot abscess and severe peripheral vascular disease, status post PCI with stent placement. The patient was discharged to [facility], undergoing physical and occupational therapy when the patient's stump in right lower extremity showed dusky changes and concern for persistent ischemia as well as gangrene. The patient was taken for re-evaluation and underwent right hcnzz-qfw-mucv amputation on 11/05/2020. Postoperatively, the patient was noted with confusion and lethargy according to the patient's . History is obtained after review of the electronic medical record as well as discussions with the at the bedside. The patient had difficulty postoperatively after the right sbagy-fqj-icxl amputation on 10/16/2020, that was deemed multifactorial. The patient with longstanding history of chronic alcoholism, but no evidence of recent alcohol use or withdrawal symptoms. The patient does complain of reflux symptoms, treated chronically with Prilosec, currently receiving Protonix. The patient states he also has constipation and is unable to describe his last bowel movement or the date. The patient was able to tolerate approximately 50% of his lunch on the date of this evaluation. PAST MEDICAL HISTORY: 1. Severe peripheral vascular disease. 2. Coronary artery disease, status post PCI. 3. Chronic obstructive pulmonary disease. 4. Chronic alcoholism. 5. Acute on chronic encephalopathy. 6. Hypertension. PAST SURGICAL HISTORY: 1. Status post coronary artery bypass grafting. 2. Status post bilateral angioplasty of the femoral vessels of the lower extremities. 3. Status post right toe amputation. 4. Status post right wcajv-cmk-sktr amputation on 10/16/2020. 5. Status post right iozbo-hio-fpon amputation on 11/05/2020. CURRENT MEDICATIONS: 1. Aspirin 81 mg p.o. daily. 2. Bupropion extended release 150 mg p.o. daily. 3. Dulcolax 10 mg p.o. daily. 4. Dulera 100/5 mcg one puff inhaled b.i.d. 5. DuoNeb 3 mL nebulized q.i.d. p.r.n. 6. Metoprolol tartrate 100 mg p.o. b.i.d. 7. Protonix 40 mg p.o. daily. 8. Tramadol 50 mg p.o. q.6 hours p.r.n. 9. p.o. q.i.d. p.r.n. 10. Diazepam 2 mg p.o. b.i.d. p.r.n. 11. Vitamin D3, 2000 units p.o. daily. 12. Zestril 10 mg p.o. daily. 13. Lipitor 40 mg p.o. at bedtime. 14. MiraLAX 17 g p.o. daily. 15. Seroquel 25 mg p.o. at bedtime. 16. Thiamine 100 mg p.o. daily. ALLERGIES: TO PENICILLIN, SULFA, AND SULFAMETHOXAZOLE. FAMILY HISTORY: Positive for hypertension and coronary artery disease. SOCIAL HISTORY: Chronic alcohol use, none currently. Smokes a pack and a half of cigarettes daily with a 50 pack-year history. No illicit drug use. Accompanied by his in the hospital. Transferred to [facility] from [facility]. REVIEW OF SYSTEMS: CONSTITUTIONAL: Negative for weight loss or gain, ability to conduct usual activities. SKIN: Negative for rash, itching. EYES: Negative for double vision, pain. ENT/MOUTH: Negative for nose bleeding, neck stiffness, pain, tenderness. CARDIOVASCULAR: Negative for palpitations, dyspnea on exertion, orthopnea. RESPIRATORY: Negative for shortness of breath, wheezing, cough, hemoptysis, fever or night sweats. GASTROINTESTINAL: Negative for poor appetite, abdominal pain, heartburn, nausea, vomiting, constipation, or diarrhea. GENITOURINARY: Negative for urgency, frequency, dysuria, nocturia. MUSCULOSKELETAL: Negative for pain, swelling. NEUROLOGIC/PSYCHIATRIC: Negative for anxiety, depression. ALLERGY/IMMUNOLOGIC: Negative for skin rash, bleeding tendency. Otherwise, negative except as stated per HPI. PHYSICAL EXAMINATION: VITAL SIGNS: On evaluation, blood pressure 116/62, pulse 92, respiratory rate 26, temperature 98.4 degrees Fahrenheit, O2 saturation 99% on room air. GENERAL APPEARANCE: This is a 65-year-old male, lethargic, opens eyes, states 1 to 2 word responses, and in no acute distress. HEENT: Pupils are equal, round, reactive to light and accommodation. Extraocular muscles are intact. No scleral icterus. No conjunctival injection. Nares patent. OP is clear. Oral mucosa dry. NECK: Supple. No cervical adenopathy. No thyromegaly. No carotid bruits. No JVD appreciated. Cervical spine with full active and passive range of motion. No meningeal signs noted. CHEST: Lungs are clear to auscultation bilaterally. CARDIOVASCULAR EXAM: S1 and S2 without noted murmur, rub, or gallop. HEART: Sounds distant. ABDOMEN: Rounded, soft, nontender, and nondistended. Bowel sounds are positive in all 4 quadrants. There is no hepatosplenomegaly. No abdominal bruits. No rebound or guarding appreciated. EXTREMITIES: Warm and dry with fair turgor. Right totlx-osf-vdxl amputation noted with stump intact. Left lower extremity without clubbing, cyanosis, or asymmetric edema appreciated. NEUROLOGIC: Lethargic, but opens eyes to direct questioning with 1 to 2 word responses. Oriented to person. PERTINENT LABORATORY AND X-RAY FINDINGS: Sodium 131, potassium 4.6, chloride 102, CO2 of 20, BUN 26, creatinine 0.86, glucose 117, calcium 9.5. CBC showed a white blood cell count of 11.1, hemoglobin 9.4, hematocrit 29, platelet count 304, with 78% neutrophils. 2D transthoracic echocardiogram dated 10/22/2020, showed ejection fraction 50% to 55%. Technically limited study. Diastolic dysfunction noted. ASSESSMENT AND PLAN: 1. Acute on chronic metabolic encephalopathy. Suspect multifactorial, given the patient's recent surgical intervention with anesthesia effect. We will continue general supportive management. Serial neurologic assessments. Supportive care for underlying medical conditions. Family at the bedside for re-orientation. 2. Severe peripheral vascular disease. Continue aspirin 81 mg daily in addition to Lipitor 40 mg at bedtime. 3. Status post right hujna-eab-dxyl amputation secondary to gangrene. Postoperative day #1. Pain control as clinically indicated. Wound Care Team for local care. 4. Chronic alcoholism. Continue supportive management. No evidence of acute withdrawal syndrome. Continue multivitamin and thiamin. 5. Hyponatremia. Chronic. No acute intervention recommended. 6. Hypertension. Resume home antihypertensive regimen and monitor clinical response. 7. Deconditioning. PT and OT evaluation. The patient will likely need evaluation for inpatient rehab versus [facility] care. Case management consult placed. 8. Prophylaxis, continue aspirin 81 mg daily. General fall risk precautions. Protonix 40 mg p.o. b.i.d. 9. Code status is full. Surrogate medical decision maker is the patient's spouse. Thank you for the consult. We will continue to follow with Primary Service. Job ID: [id number]
[2020-11-06] MEDS: Diazepam 2 MG TAB PO PRN (18:28)
[2020-11-06] MEDS: Atorvastatin Calcium 40 MG TAB PO SCH (19:35)
--- NOTE | 2020-11-07 07:25 | EKG ---
Test Reason : PREOP Blood Pressure : / mmHG Vent. Rate : 097 BPM Atrial Rate : 097 BPM P-R Int : 138 ms QRS Dur : 078 ms QT Int : 348 ms P-R-T Axes : 076 093 070 degrees QTc Int : 441 ms Sinus rhythm with Premature atrial complexes Rightward axis When compared with ECG of 25-SEP-2020 17:03, (Unconfirmed) Premature atrial complexes are now Present Non-specific change in ST segment in Inferior leads ST no longer depressed in Anterolateral leads Nonspecific T wave abnormality no longer evident in Inferior leads Nonspecific T wave abnormality no longer evident in Anterolateral leads Confirmed by DR. Jeff HYMAN ([id number]) on 11/07/2020 7:25:06 AM Referred By: COLE Confirmed By:DR. Jeff HYMAN
[2020-11-07] MEDS: Ferrous Gluconate 324 MG TAB PO SCH (14:23)
[2020-11-07] MEDS: Saccharomyces boulardii 250 MG CAP PO SCH (14:23)
[2020-11-07] MEDS: Lisinopril 10 MG TAB PO SCH (14:24)
[2020-11-07] MEDS: Thiamine 100 MG TAB PO SCH (14:24)
[2020-11-07] MEDS: Cholecalciferol 1,000 UNITS (25 MCG) TAB PO SCH (14:24)
[2020-11-07] MEDS: Metoprolol Tartrate 100 MG TAB PO SCH ×2 (14:24→21:12)
[2020-11-07] MEDS: Polyethylene Glycol 3350 17 GM Packet PO SCH (14:25)
[2020-11-07] MEDS: Aspirin Chewable 81 MG TAB PO SCH (14:25)
[2020-11-07] MEDS: Bupropion 150 MG SR TAB PO SCH (14:25)
[2020-11-07] MEDS: Diazepam 2 MG TAB PO PRN (14:27)
--- NOTE | 2020-11-07 15:32 | PDOC.HOSPP ---
- Subjective Encounter Date: 11/07/20 Encounter Time: 15:15 Subjective: f/u for AMS/RLE gangrene s/p R AKA POD #2. Pt hallucinating and confused intermittently per . Tolerated po intake. - Objective Vital Signs & Weight: Vital Signs (12 hours) Temp Pulse BP BP Pulse Ox 11/07/20 14:24 140/66 11/07/20 08:00 97.7 F 107 H 139/74 99 Weight Admit Weight 134 lb 9.6 oz Weight 134 lb 9.6 oz I&O: 11/06/20 11/07/20 11/08/20 06:59 06:59 06:59 Intake Total 250 100 Output Total 950 1150 Balance -700 -1050 Result Diagrams: 11/06/20 03:42 11/06/20 03:42 Additional Labs: Laboratory Tests 11/06/20 03:42 Phosphorus 3.4 Magnesium 1.7 Hospitalist ROS - Medication Medications: Active Medications Generic Name Dose Route Start Last Admin Trade Name Freq PRN Reason Stop Dose Admin Aspirin 81 mg 11/06/20 09:00 11/07/20 14:25 Aspirin Chewable 81 Mg Tab PO 81 mg DAILY YAMILA Administration Atorvastatin Calcium 40 mg 11/05/20 21:00 11/06/20 19:35 Atorvastatin Calcium 40 Mg Tab PO 40 mg HS YAMILA Administration Bupropion HCl 150 mg 11/06/20 09:00 11/07/20 14:25 Bupropion 150 Mg Sr Tab PO Not Given DAILY YAMILA Cholecalciferol 2,000 units 11/06/20 09:00 11/07/20 14:24 Cholecalciferol 1,000 Units (25 Mcg) Tab PO 2,000 units DAILY YAMILA Administration Diazepam 2 mg 11/05/20 17:29 11/07/20 14:27 Diazepam 2 Mg Tab PO 2 mg BIDPRN PRN Administration Anxiety/Restlessness/Sleep Ferrous Gluconate 324 mg 11/06/20 08:00 11/07/20 14:23 Ferrous Gluconate 324 Mg Tab PO 324 mg QAM-WM YAMILA Administration Levofloxacin 500 mg/ Device 100 mls @ 100 mls/hr 11/06/20 13:00 11/07/20 14:27 IVPB 100 mls Q24HR YAMILA Administration Lisinopril 10 mg 11/06/20 09:00 11/07/20 14:24 Lisinopril 10 Mg Tab PO 10 mg DAILY YAMILA Administration Metoprolol Tartrate 100 mg 11/05/20 21:00 11/07/20 14:24 Metoprolol Tartrate 100 Mg Tab PO 100 mg BID YAMILA Administration Pantoprazole Sodium 40 mg 11/06/20 21:00 11/07/20 14:24 Pantoprazole 40 Mg Tab PO 40 mg BID YAMILA Administration Polyethylene Glycol 17 gm 11/07/20 09:00 11/07/20 14:25 Polyethylene Glycol 3350 17 Gm Packet PO 17 gm DAILY YAMILA Administration Quetiapine Fumarate 25 mg 11/05/20 21:00 11/06/20 19:35 Quetiapine Fumarate 25 Mg Tab PO 25 mg HS YAMILA Administration Saccharomyces Boulardii 250 mg 11/06/20 09:00 11/07/20 14:23 Saccharomyces Boulardii 250 Mg Cap PO 250 mg DAILY YAMILA Administration Thiamine HCl 100 mg 11/07/20 09:00 11/07/20 14:24 Thiamine 100 Mg Tab PO 100 mg DAILY YAMILA Administration Tramadol HCl 50 mg 11/05/20 17:22 11/05/20 21:48 Tramadol Hcl 50 Mg Tab PO 50 mg Q6H PRN Administration Severe Pain (7-10) Hospitalist Exam Vitals: Vital Signs (12 hours) Temp Pulse BP BP Pulse Ox 11/07/20 14:24 140/66 11/07/20 08:00 97.7 F 107 H 139/74 99 Weight Admit Weight 134 lb 9.6 oz Weight 134 lb 9.6 oz General Appearance: NAD, awake alert Eye: PERRL, anicteric sclera ENT: normocephalic atraumatic, no oropharyngeal lesions Neck: supple, symmetric, no JVD, no thyromegaly, no lymphadenopathy Heart: RRR, no murmur, no gallops, no rubs, normal peripheral pulses Respiratory: CTAB, no wheezes, no rales, no ronchi, normal chest expansion, no tachypnea Gastrointestinal: soft, non-tender, non-distended, normal bowel sounds, no palpable masses Extremities: no cyanosis Skin: normal turgor Neurological: cranial nerve grossly intact, no new deficit Musculoskeletal: normal tone, generalized weakness Psychiatric: oriented to person, somnolent Hosp A/P (1) Acute metabolic encephalopathy Code(s): G93.41 - METABOLIC ENCEPHALOPATHY Status: Acute Plan: Multifactorial process given chronic alcoholism/surgery/anesthesia/electrolyte disturbance, Ativan IV for agitation (2) Hyponatremia Code(s): E87.1 - HYPO-OSMOLALITY AND HYPONATREMIA Status: Acute Plan: Mild, chronic (3) Alcoholism Code(s): F10.20 - ALCOHOL DEPENDENCE, UNCOMPLICATED Status: Chronic Plan: Continue Valium (4) CAD (coronary artery disease) Code(s): I25.10 - ATHSCL HEART DISEASE OF [place] CORONARY ARTERY W/O ANG PCTRS Status: Chronic Qualifiers: Coronary Disease-Associated Artery/Lesion type: [place] artery [place] vs. transplanted heart: [place] heart Associated angina: without angina Qualified Code(s): I25.10 - Atherosclerotic heart disease of [place] coronary artery without angina pectoris - Plan plan discussed w/ family, continue antibiotics, PT/OT, social and political studies professor, incentive spirometry Stable overall Continue Levaquin WCT for local care Trial Claritin Continue pulmonary support DVT ppx CM for swing bed option Ativan IV for agitation/anxiety AM lab: CMP, CBC, Mg++, PO3
[2020-11-07] MEDS ORDERED: Loratadine 10 MG TAB PO PRN (15:37)
--- NOTE | 2020-11-07 17:10 | PDOC.GSPN ---
Surgery Progress Note: Subj - Subjective Narrative: Patient is feeling good today. He denies any pain. He complains that his eyes are burning and that there is a dog running loose. His nurse states that he has been more alert today but confused. He ate about a third of his lunch but did not eat breakfast. Heart rate and blood pressure both little up today. No fevers. Right AKA dressing looks good. Assessment/plan: Doing okay from a surgical standpoint. Still hallucinating and confused, consistent with this mental status at his last hospitalization. Certainly no better but does not seem significantly worse. He is supposed to be getting TPN at a rate of 2 L over 24 hours but I do not see that this has been running. I asked his nurse to follow-up on this. Going to order repeat labs for tomorrow. Surgery Progress Note: Obj - Vital signs Vital signs: Vital Signs - Most Recent Temp Pulse Resp BP Pulse Ox 97.7 F 107 H 20 140/66 99 11/07/20 08:00 11/07/20 08:00 11/06/20 19:34 11/07/20 14:24 11/07/20 08:00 Surgery Progress Note: Results - Labs Result Diagrams: 11/06/20 03:42 11/06/20 03:42
[2020-11-07] MEDS: Amino Acids 4.25 %/Dextrose 5% 1,000 ML IV SCH (18:56)
[2020-11-07] MEDS: Lorazepam 2 MG/ML VIAL SLOW IVP PRN (19:01)
[2020-11-07] MEDS: Mometasone 200 MCG/Formoterol 5 MCG 120 PUFF INHALER INH SCH (19:52)
[2020-11-07] MEDS: Atorvastatin Calcium 40 MG TAB PO SCH (21:12)
[2020-11-08] MEDS: Lorazepam 2 MG/ML VIAL SLOW IVP PRN ×3 (02:25→23:16)
[2020-11-08 04:44] LABS: #Basophils 0.1 thou/uL (0.0-0.2); #Eosinphils 0.2 thou/uL (0.0-0.7); #Lymphocytes 2.1 thou/uL (1.20-3.40); #Monocytes 0.7 thou/uL (0.11-0.59); #Neutrophils 6.9 thou/uL (1.40-6.50); %Basophils 0.5 % (0.0-1.0); %Eosinophils 1.6 % (0.0-10.0); %Lymphocytes 21.2 % (21.0-51.0); %Neutrophils 69.6 % (42.0-75.0); Hemoglobin 10.5 g/dL (14.0-18.0); Mean Corpuscular HGB CONC 30.7 g/dL (32.0-36.0); Mean Corpuscular Hemoglobin 29.1 pg (27.0-31.0); Mean Corpuscular Volume 94.8 fL (78.0-98.0); Mean Platelet Volume 9.6 fL (7.4-10.4); Platelet Count 287 thou/uL (130-400); RBC Distribution Width 14.6 % (11.5-14.5); Red Blood Cell (RBC) Count 3.59 mill/uL (4.70-6.10)
[2020-11-08 05:54] LABS: ALT (SGPT) 38 U/L (8-55); AST (SGOT) 32 U/L (5-34); Albumin 3.4 g/dL (3.4-4.8); Alkaline Phosphatase 217 U/L (40-110); Anion Gap 18 mmol/L (10-20); BUN (Urea Nitrogen) 32 mg/dL (8.4-25.7); Bilirubin, Total 0.5 mg/dL (0.2-1.2); Calc. Creatinine Clearance 70 mL/min (70-130); Carbon Dioxide 18 mmol/L (23-31); Chloride 103 mmol/L (98-107); Glucose 127 mg/dL (80-115); Magnesium 1.8 mg/dL (1.6-2.6); Phosphorus 4.1 mg/dL (2.3-4.7); Potassium 4.7 mmol/L (3.5-5.1); Protein, Total 7.4 g/dL (5.8-8.1); Sodium 134 mmol/L (136-145)
[2020-11-08] MEDS: Mometasone 200 MCG/Formoterol 5 MCG 120 PUFF INHALER INH SCH ×2 (06:42→18:54)
[2020-11-08] MEDS: Ferrous Gluconate 324 MG TAB PO SCH (08:00)
--- NOTE | 2020-11-08 08:05 | PRG ---
DATE OF SERVICE: 11/08/2020 SUBJECTIVE: Mr. Castellanos is currently stable. He has had issues with hallucination. He is currently resting comfortably. No current complaints. CURRENT MEDICATIONS: Include: 1. Aspirin 81 q.a.m. 2. Atorvastatin 40 at bedtime. 3. Lisinopril 10 mg daily. 4. Metoprolol 100 mg p.o. b.i.d. OBJECTIVE: VITAL SIGNS: Blood pressure 123/59, pulse 87, temperature 98. LUNGS: Clear to auscultation. HEART: Regular rate and rhythm. ABDOMEN: Soft, nontender, nondistended. EXTREMITIES: Recent AKA on the right. PERTINENT LABORATORY DATA: Hemoglobin 10.5, platelet count 287, creatinine 0.93. IMPRESSION: 1. Severe peripheral vascular disease. 2. Status post wbjlg-vdi-mcyd amputation. 3. Severe coronary artery disease, treated medically. RECOMMENDATIONS: Mr. Castellanos appears to be cardiovascularly stable. Heart rate and blood pressure appear stable. He has no current complaints. We will continue current medical therapy. He is on PIERO inhibitor therapy, beta-israel therapy, aspirin, and statin therapy. Mr. Castellanos is awaiting placement. Job ID: [id number]
[2020-11-08] MEDS: Bupropion 150 MG SR TAB PO SCH (09:00)
[2020-11-08] MEDS: Saccharomyces boulardii 250 MG CAP PO SCH (12:42)
[2020-11-08] MEDS: Cholecalciferol 1,000 UNITS (25 MCG) TAB PO SCH (12:42)
[2020-11-08] MEDS: Aspirin Chewable 81 MG TAB PO SCH (12:42)
[2020-11-08] MEDS: Metoprolol Tartrate 100 MG TAB PO SCH ×2 (12:42→20:18)
[2020-11-08] MEDS: Thiamine 100 MG TAB PO SCH (12:42)
[2020-11-08] MEDS: Polyethylene Glycol 3350 17 GM Packet PO SCH (12:43)
[2020-11-08] MEDS: Lisinopril 10 MG TAB PO SCH (12:43)
--- NOTE | 2020-11-08 13:32 | PDOC.HOSPP ---
- Subjective Encounter Date: 11/08/20 Encounter Time: 13:20 Subjective: f/u for severe PVD s/p R AKA POD #3. Agitated overnight and given Ativan. Sleepy today but tolerating small amounts of diet. - Objective Vital Signs & Weight: Vital Signs (12 hours) Temp Pulse Resp BP BP Pulse Ox 11/08/20 12:43 125/55 L 11/08/20 08:00 98.0 F 100 18 125/55 L 100 Weight Admit Weight 134 lb 9.6 oz Weight 134 lb 9.6 oz I&O: 11/07/20 11/08/20 11/09/20 06:59 06:59 06:59 Intake Total 100 950 Output Total 1150 750 475 Balance -1050 200 -475 Result Diagrams: 11/08/20 04:07 11/08/20 04:07 Additional Labs: Laboratory Tests 11/06/20 03:42 Phosphorus 3.4 Magnesium 1.7 Hospitalist ROS - Medication Medications: Active Medications Generic Name Dose Route Start Last Admin Trade Name Freq PRN Reason Stop Dose Admin Aspirin 81 mg 11/06/20 09:00 11/08/20 12:42 Aspirin Chewable 81 Mg Tab PO 81 mg DAILY YAMILA Administration Atorvastatin Calcium 40 mg 11/05/20 21:00 11/07/20 21:12 Atorvastatin Calcium 40 Mg Tab PO 40 mg HS YAMILA Administration Bupropion HCl 150 mg 11/06/20 09:00 11/08/20 09:00 Bupropion 150 Mg Sr Tab PO Not Given DAILY YAMILA Cholecalciferol 2,000 units 11/06/20 09:00 11/08/20 12:42 Cholecalciferol 1,000 Units (25 Mcg) Tab PO 2,000 units DAILY YAMILA Administration Diazepam 2 mg 11/05/20 17:29 11/07/20 14:27 Diazepam 2 Mg Tab PO 2 mg BIDPRN PRN Administration Anxiety/Restlessness/Sleep Ferrous Gluconate 324 mg 11/06/20 08:00 11/08/20 08:00 Ferrous Gluconate 324 Mg Tab PO Not Given QAM-WM YAMILA Levofloxacin 500 mg/ Device 100 mls @ 100 mls/hr 11/06/20 13:00 11/08/20 12:44 IVPB 100 mls Q24HR YAMILA Administration Amino Acids/Dextrose 1,000 mls @ 83.333 mls/hr 11/07/20 17:15 11/07/20 18:56 Clinimix 4.25/5 IV 1,000 mls INF YAMILA Administration Lisinopril 10 mg 11/06/20 09:00 11/08/20 12:43 Lisinopril 10 Mg Tab PO Not Given DAILY YAMILA Lorazepam 1 mg 11/07/20 18:05 11/08/20 02:25 Lorazepam 2 Mg/Ml Vial SLOW IVP 1 mg Q6H PRN Administration Anxiety/Agitation Metoprolol Tartrate 100 mg 11/05/20 21:00 11/08/20 12:42 Metoprolol Tartrate 100 Mg Tab PO 100 mg BID YAMILA Administration Mometasone Furoate/Formoterol Fumar 1 puff 11/07/20 18:30 11/08/20 06:42 Mometasone 200 Mcg/Formoterol 5 Mcg 120 Puff Inhaler INH 1 puff BID-RT YAMILA Administration Pantoprazole Sodium 40 mg 11/06/20 21:00 11/08/20 12:43 Pantoprazole 40 Mg Tab PO 40 mg BID YAMILA Administration Polyethylene Glycol 17 gm 11/07/20 09:00 11/08/20 12:43 Polyethylene Glycol 3350 17 Gm Packet PO Not Given DAILY YAMILA Quetiapine Fumarate 25 mg 11/05/20 21:00 11/07/20 21:13 Quetiapine Fumarate 25 Mg Tab PO 25 mg HS YAMILA Administration Saccharomyces Boulardii 250 mg 11/06/20 09:00 11/08/20 12:42 Saccharomyces Boulardii 250 Mg Cap PO 250 mg DAILY YAMILA Administration Thiamine HCl 100 mg 11/07/20 09:00 11/08/20 12:42 Thiamine 100 Mg Tab PO 100 mg DAILY YAMILA Administration Tramadol HCl 50 mg 11/05/20 17:22 11/05/20 21:48 Tramadol Hcl 50 Mg Tab PO 50 mg Q6H PRN Administration Severe Pain (7-10) Hospitalist Exam Vitals: Vital Signs (12 hours) Temp Pulse Resp BP BP Pulse Ox 11/08/20 12:43 125/55 L 11/08/20 08:00 98.0 F 100 18 125/55 L 100 Weight Admit Weight 134 lb 9.6 oz Weight 134 lb 9.6 oz General Appearance: NAD General - other findings: somnolent, awakens and responds to direct questioning Eye: anicteric sclera ENT: normocephalic atraumatic, no oropharyngeal lesions Neck: supple, symmetric, no JVD, no thyromegaly, no lymphadenopathy Heart: RRR, no gallops, no rubs, normal peripheral pulses Heart - other findings: S1, S2 Respiratory: CTAB, no rales, no ronchi, normal chest expansion, no tachypnea Respiratory - other findings: few exp wheezes Gastrointestinal: soft, non-tender, non-distended, normal bowel sounds, no palpable masses Extremities: no cyanosis Extremities - other findings: R AKA, stump intact Skin: normal turgor Neurological: cranial nerve grossly intact, no new deficit Musculoskeletal: normal tone, generalized weakness Psychiatric: oriented to person, somnolent, lethargic Hosp A/P (1) Acute metabolic encephalopathy Code(s): G93.41 - METABOLIC ENCEPHALOPATHY Status: Acute Plan: Mild improvement, continue Ativan PRN, supportive mgmt, Re-orientation techniques (2) Hyponatremia Code(s): E87.1 - HYPO-OSMOLALITY AND HYPONATREMIA Status: Acute (3) Alcoholism Code(s): F10.20 - ALCOHOL DEPENDENCE, UNCOMPLICATED Status: Chronic (4) CAD (coronary artery disease) Code(s): I25.10 - ATHSCL HEART DISEASE OF [place] CORONARY ARTERY W/O ANG PCTRS Status: Chronic Qualifiers: Coronary Disease-Associated Artery/Lesion type: [place] artery [place] vs. transplanted heart: [place] heart Associated angina: without angina Qualified Code(s): I25.10 - Atherosclerotic heart disease of [place] coronary artery without angina pectoris (5) Status post above-knee amputation Code(s): Z89.619 - ACQUIRED ABSENCE OF UNSPECIFIED LEG ABOVE KNEE Status: Acute Qualifiers: Laterality: right Qualified Code(s): Z89.611 - Acquired absence of right leg above knee Plan: POD #3, supportive mgmt, pain control, PT/OT, WCT - Plan PT/OT, group social worker, incentive spirometry Stable overall Continue Levaquin WCT for local care Trial Claritin Continue pulmonary support DVT ppx CM for swing bed option Ativan IV for agitation/anxiety
[2020-11-08] MEDS: Amino Acids 4.25 %/Dextrose 5% 1,000 ML IV SCH (14:45)
[2020-11-08] MEDS: Atorvastatin Calcium 40 MG TAB PO SCH (20:18)
[2020-11-09] MEDS: Amino Acids 4.25 %/Dextrose 5% 1,000 ML IV SCH ×2 (06:22→17:09)
[2020-11-09] MEDS: Mometasone 200 MCG/Formoterol 5 MCG 120 PUFF INHALER INH SCH ×2 (06:37→20:03)
[2020-11-09] MEDS: traMADol HCl 50 MG TAB PO PRN ×2 (08:13→17:07)
[2020-11-09] MEDS: Aspirin Chewable 81 MG TAB PO SCH (08:13)
[2020-11-09] MEDS: Ferrous Gluconate 324 MG TAB PO SCH (08:13)
[2020-11-09] MEDS: Saccharomyces boulardii 250 MG CAP PO SCH (08:13)
[2020-11-09] MEDS: Thiamine 100 MG TAB PO SCH (08:13)
[2020-11-09] MEDS: Metoprolol Tartrate 100 MG TAB PO SCH ×2 (08:14→19:47)
[2020-11-09] MEDS: Lisinopril 10 MG TAB PO SCH (08:14)
[2020-11-09] MEDS: Cholecalciferol 1,000 UNITS (25 MCG) TAB PO SCH (08:14)
[2020-11-09] MEDS: Acetaminophen 325 MG TAB PO PRN ×2 (08:14→17:00)
[2020-11-09] MEDS: Bupropion 150 MG SR TAB PO SCH (08:15)
--- NOTE | 2020-11-09 09:06 | PRG ---
DATE OF SERVICE: 11/09/2020 SUBJECTIVE: Mr. Castellanos is sleepy this morning. He had Ativan after midnight. He ate some food this morning, but drank his protein shake as well. Otherwise, not complaining of much pain. He has had tramadol that seems to control it. He pulled out his IV. It was restarted. ASSESSMENT: Ygetq-rnn-pfwx amputation. PLAN: Plans are for [facility]. If he pulls out his IV, we can probably switch over to p.o. everything. Job ID: [id number]
[2020-11-09 09:18] LABS: #Eosinphils 0.1 thou/uL (0.0-0.7); #Lymphocytes 1.5 thou/uL (1.20-3.40); #Monocytes 0.4 thou/uL (0.11-0.59); #Neutrophils 6.7 thou/uL (1.40-6.50); %Eosinophils 1.7 % (0.0-10.0); %Lymphocytes 17.4 % (21.0-51.0); %Monocytes 4.5 % (0.0-10.0); %Neutrophils 76.4 % (42.0-75.0); Hemoglobin 9.4 g/dL (14.0-18.0); Mean Corpuscular Hemoglobin 30.2 pg (27.0-31.0); Mean Corpuscular Volume 94.4 fL (78.0-98.0); Mean Platelet Volume 7.9 fL (7.4-10.4); Platelet Count 319 thou/uL (130-400); RBC Distribution Width 14.3 % (11.5-14.5); White Blood Cell (WBC) Count 8.8 thou/uL (4.8-10.8)
[2020-11-09 09:36] LABS: Anion Gap 9 mmol/L (10-20); BUN (Urea Nitrogen) 26 mg/dL (8.4-25.7); Calc. Creatinine Clearance 80 mL/min (70-130); Calcium 9.1 mg/dL (7.8-10.44); Carbon Dioxide 17 mmol/L (23-31); Chloride 93 mmol/L (98-107); Glucose 462 mg/dL (80-115); Potassium 3.1 mmol/L (3.5-5.1)
[2020-11-09 09:40] LABS: Sodium 116 mmol/L (136-145)
[2020-11-09 11:00] LABS: Anion Gap 15 mmol/L (10-20); BUN (Urea Nitrogen) 29 mg/dL (8.4-25.7); Calc. Creatinine Clearance 88 mL/min (70-130); Calcium 10.2 mg/dL (7.8-10.44); Carbon Dioxide 16 mmol/L (23-31); Chloride 101 mmol/L (98-107); Glucose 128 mg/dL (80-115); Potassium 3.6 mmol/L (3.5-5.1); Sodium 128 mmol/L (136-145)
[2020-11-09] MEDS: Polyethylene Glycol 3350 17 GM Packet PO SCH (15:15)
--- NOTE | 2020-11-09 15:58 | PDOC.HOSPP ---
- Subjective Encounter Date: 11/09/20 Encounter Time: 15:56 Subjective: Mr. Castellanos was seen today in follow-up of metabolic encephalopathy following surgery. He is still confused, but I am not sure of his baseline. He knows he is in the hospital, but he does not know the month or year. When asked if he is having pain, he says he is not hurting anywhere. - Objective Vital Signs & Weight: Vital Signs (12 hours) Temp Pulse Resp BP Pulse Ox 11/09/20 08:00 98.0 F 106 H 16 142/62 H 96 Weight Admit Weight 134 lb 9.6 oz Weight 134 lb 9.6 oz I&O: 11/08/20 11/09/20 11/10/20 06:59 06:59 06:59 Intake Total 950 330 Output Total 750 1325 Balance 200 -995 Result Diagrams: 11/09/20 09:04 11/09/20 10:27 Hospitalist ROS - Medication Medications: Active Medications Generic Name Dose Route Start Last Admin Trade Name Freq PRN Reason Stop Dose Admin Acetaminophen 650 mg 11/05/20 17:21 11/09/20 08:14 Acetaminophen 325 Mg Tab PO 650 mg Q4H PRN Administration Moderate Pain (4-6) Aspirin 81 mg 11/06/20 09:00 11/09/20 08:13 Aspirin Chewable 81 Mg Tab PO 81 mg DAILY YAMILA Administration Atorvastatin Calcium 40 mg 11/05/20 21:00 11/08/20 20:18 Atorvastatin Calcium 40 Mg Tab PO 40 mg HS YAMILA Administration Bupropion HCl 150 mg 11/06/20 09:00 11/09/20 08:15 Bupropion 150 Mg Sr Tab PO Not Given DAILY YAMILA Cholecalciferol 2,000 units 11/06/20 09:00 11/09/20 08:14 Cholecalciferol 1,000 Units (25 Mcg) Tab PO 2,000 units DAILY YAMILA Administration Diazepam 2 mg 11/05/20 17:29 11/07/20 14:27 Diazepam 2 Mg Tab PO 2 mg BIDPRN PRN Administration Anxiety/Restlessness/Sleep Ferrous Gluconate 324 mg 11/06/20 08:00 11/09/20 08:13 Ferrous Gluconate 324 Mg Tab PO 324 mg QAM-WM YAMILA Administration Amino Acids/Dextrose 1,000 mls @ 83.333 mls/hr 11/07/20 17:15 11/09/20 06:22 Clinimix 4.25/5 IV 1,000 mls INF YAMILA Administration Lisinopril 10 mg 11/06/20 09:00 11/09/20 08:14 Lisinopril 10 Mg Tab PO 10 mg DAILY YAMILA Administration Lorazepam 1 mg 11/07/20 18:05 11/08/20 23:16 Lorazepam 2 Mg/Ml Vial SLOW IVP 1 mg Q6H PRN Administration Anxiety/Agitation Metoprolol Tartrate 100 mg 11/05/20 21:00 11/09/20 08:14 Metoprolol Tartrate 100 Mg Tab PO 100 mg BID YAMILA Administration Mometasone Furoate/Formoterol Fumar 1 puff 11/07/20 18:30 11/09/20 06:37 Mometasone 200 Mcg/Formoterol 5 Mcg 120 Puff Inhaler INH Not Given BID-RT YAMILA Pantoprazole Sodium 40 mg 11/06/20 21:00 11/09/20 08:15 Pantoprazole 40 Mg Tab PO 40 mg BID YAMILA Administration Polyethylene Glycol 17 gm 11/07/20 09:00 11/09/20 15:15 Polyethylene Glycol 3350 17 Gm Packet PO Not Given DAILY YAMILA Quetiapine Fumarate 25 mg 11/05/20 21:00 11/08/20 20:18 Quetiapine Fumarate 25 Mg Tab PO 25 mg HS YAMILA Administration Saccharomyces Boulardii 250 mg 11/06/20 09:00 11/09/20 08:13 Saccharomyces Boulardii 250 Mg Cap PO 250 mg DAILY YAMILA Administration Thiamine HCl 100 mg 11/07/20 09:00 11/09/20 08:13 Thiamine 100 Mg Tab PO 100 mg DAILY YAMILA Administration Tramadol HCl 50 mg 11/05/20 17:22 11/09/20 08:13 Tramadol Hcl 50 Mg Tab PO 50 mg Q6H PRN Administration Severe Pain (7-10) Hospitalist Exam Vitals: Vital Signs (12 hours) Temp Pulse Resp BP Pulse Ox 11/09/20 08:00 98.0 F 106 H 16 142/62 H 96 Weight Admit Weight 134 lb 9.6 oz Weight 134 lb 9.6 oz General Appearance: NAD, awake alert Eye: PERRL, anicteric sclera Heart: RRR, no murmur, no gallops, no rubs, normal peripheral pulses Respiratory: no wheezes (+ right above the knee amputation and stump is dressed), rales Gastrointestinal: soft, non-tender, non-distended, normal bowel sounds, no palpable masses, no hepatomegaly Extremities: no cyanosis, no edema Hosp A/P (1) Status post above-knee amputation Code(s): Z89.619 - ACQUIRED ABSENCE OF UNSPECIFIED LEG ABOVE KNEE Status: Acute Qualifiers: Laterality: right Qualified Code(s): Z89.611 - Acquired absence of right leg above knee (2) AMS (altered mental status) Code(s): R41.82 - ALTERED MENTAL STATUS, UNSPECIFIED Status: Acute (3) Hyponatremia Code(s): E87.1 - HYPO-OSMOLALITY AND HYPONATREMIA Status: Acute (4) Alcoholism Code(s): F10.20 - ALCOHOL DEPENDENCE, UNCOMPLICATED Status: Chronic (5) CAD (coronary artery disease) Code(s): I25.10 - ATHSCL HEART DISEASE OF [place] CORONARY ARTERY W/O ANG PCTRS Status: Chronic Qualifiers: Coronary Disease-Associated Artery/Lesion type: [place] artery [place] vs. transplanted heart: [place] heart Associated angina: without angina Qualified Code(s): I25.10 - Atherosclerotic heart disease of [place] coronary artery without angina pectoris (6) COPD (chronic obstructive pulmonary disease) Status: Chronic - Plan * Metabolic encephalopathy- he is still confused, this may be in part due to the hyponatremia- will check urin and serum osmolality, to help in identifying a cause * Alcoholism- continue Thiamine and folic acid- he does not clinically appear to be in withdrawal * COPD- stable- continue Dulera, and Duonebs as needed * CAD- clinically stable * s/p Right AKA- continue as per General Surgery * Probable long-term placement
[2020-11-09] MEDS: Atorvastatin Calcium 40 MG TAB PO SCH (19:47)
[2020-11-09] MEDS: Lorazepam 2 MG/ML VIAL SLOW IVP PRN (20:19)
[2020-11-10] MEDS: Amino Acids 4.25 %/Dextrose 5% 1,000 ML IV SCH ×2 (05:30→17:39)
[2020-11-10] MEDS: Mometasone 200 MCG/Formoterol 5 MCG 120 PUFF INHALER INH SCH ×2 (06:35→19:33)
[2020-11-10 07:12] LABS: Anion Gap 12 mmol/L (10-20); BUN (Urea Nitrogen) 31 mg/dL (8.4-25.7); Calc. Creatinine Clearance 82 mL/min (70-130); Calcium 9.8 mg/dL (7.8-10.44); Carbon Dioxide 21 mmol/L (23-31); Chloride 102 mmol/L (98-107); Glucose 119 mg/dL (80-115); Potassium 3.6 mmol/L (3.5-5.1); Sodium 131 mmol/L (136-145)
[2020-11-10 07:13] LABS: #Eosinphils 0.3 thou/uL (0.0-0.7); #Lymphocytes 1.9 thou/uL (1.20-3.40); #Monocytes 0.6 thou/uL (0.11-0.59); #Neutrophils 6.4 thou/uL (1.40-6.50); %Basophils 0.3 % (0.0-1.0); %Eosinophils 3.6 % (0.0-10.0); %Lymphocytes 20.1 % (21.0-51.0); Hemoglobin 10.7 g/dL (14.0-18.0); Mean Corpuscular HGB CONC 31.9 g/dL (32.0-36.0); Mean Corpuscular Hemoglobin 29.7 pg (27.0-31.0); Platelet Count 317 thou/uL (130-400); RBC Distribution Width 14.2 % (11.5-14.5); Red Blood Cell (RBC) Count 3.61 mill/uL (4.70-6.10); White Blood Cell (WBC) Count 9.3 thou/uL (4.8-10.8)
[2020-11-10] MEDS: Aspirin Chewable 81 MG TAB PO SCH (08:54)
[2020-11-10] MEDS: Thiamine 100 MG TAB PO SCH (08:55)
[2020-11-10] MEDS: Cholecalciferol 1,000 UNITS (25 MCG) TAB PO SCH (08:55)
[2020-11-10] MEDS: Bupropion 150 MG SR TAB PO SCH (08:55)
[2020-11-10] MEDS: Ferrous Gluconate 324 MG TAB PO SCH (08:55)
[2020-11-10] MEDS: Saccharomyces boulardii 250 MG CAP PO SCH (08:55)
[2020-11-10] MEDS: Lisinopril 10 MG TAB PO SCH (08:55)
[2020-11-10] MEDS: Metoprolol Tartrate 100 MG TAB PO SCH ×2 (08:56→21:40)
[2020-11-10] MEDS: Polyethylene Glycol 3350 17 GM Packet PO SCH (10:20)
--- NOTE | 2020-11-10 12:43 | PDOC.HOSPP ---
- Subjective Encounter Date: 11/10/20 Encounter Time: 12:41 Subjective: Mr. Csatellanos was seen today in post-op follow-up. He is still confused. His daughter is at bedside, and tells me he was like this before coming into the hospital She notes that over the past 4 months or so he has steadily been more and more confused. She does however note it is a bit worse since being hospitalized. - Objective Vital Signs & Weight: Vital Signs (12 hours) Temp Pulse Resp BP BP Pulse Ox 11/10/20 09:00 98.6 F 83 22 H 152/68 H 100 11/10/20 08:55 152/68 H Weight Admit Weight 134 lb 9.6 oz Weight 134 lb 9.6 oz I&O: 11/09/20 11/10/20 11/11/20 06:59 06:59 06:59 Intake Total 330 1236 Output Total 8439 0590 Balance -1845 -414 Result Diagrams: 11/10/20 06:36 11/10/20 06:36 Hospitalist ROS - Medication Medications: Active Medications Generic Name Dose Route Start Last Admin Trade Name Freq PRN Reason Stop Dose Admin Acetaminophen 650 mg 11/05/20 17:21 11/09/20 17:00 Acetaminophen 325 Mg Tab PO 650 mg Q4H PRN Administration Moderate Pain (4-6) Aspirin 81 mg 11/06/20 09:00 11/10/20 08:54 Aspirin Chewable 81 Mg Tab PO 81 mg DAILY YAMILA Administration Atorvastatin Calcium 40 mg 11/05/20 21:00 11/09/20 19:47 Atorvastatin Calcium 40 Mg Tab PO 40 mg HS YAMILA Administration Bupropion HCl 150 mg 11/06/20 09:00 11/10/20 08:55 Bupropion 150 Mg Sr Tab PO 150 mg DAILY YAMILA Administration Cholecalciferol 2,000 units 11/06/20 09:00 11/10/20 08:55 Cholecalciferol 1,000 Units (25 Mcg) Tab PO 2,000 units DAILY YAMILA Administration Diazepam 2 mg 11/05/20 17:29 11/07/20 14:27 Diazepam 2 Mg Tab PO 2 mg BIDPRN PRN Administration Anxiety/Restlessness/Sleep Ferrous Gluconate 324 mg 11/06/20 08:00 11/10/20 08:55 Ferrous Gluconate 324 Mg Tab PO 324 mg QAM-WM YAMILA Administration Amino Acids/Dextrose 1,000 mls @ 83.333 mls/hr 11/07/20 17:15 11/10/20 05:30 Clinimix 4.25/5 IV 1,000 mls INF YAMILA Administration Levofloxacin 500 mg 11/10/20 06:00 11/10/20 05:30 Levofloxacin 500 Mg Tab PO 500 mg 0600 YAMILA Administration Lisinopril 10 mg 11/06/20 09:00 11/10/20 08:55 Lisinopril 10 Mg Tab PO 10 mg DAILY YAMILA Administration Lorazepam 1 mg 11/07/20 18:05 11/09/20 20:19 Lorazepam 2 Mg/Ml Vial SLOW IVP 1 mg Q6H PRN Administration Anxiety/Agitation Metoprolol Tartrate 100 mg 11/05/20 21:00 11/10/20 08:56 Metoprolol Tartrate 100 Mg Tab PO 100 mg BID YAMILA Administration Mometasone Furoate/Formoterol Fumar 1 puff 11/07/20 18:30 11/10/20 06:35 Mometasone 200 Mcg/Formoterol 5 Mcg 120 Puff Inhaler INH 1 puff BID-RT YAMILA Administration Pantoprazole Sodium 40 mg 11/06/20 21:00 11/10/20 08:55 Pantoprazole 40 Mg Tab PO 40 mg BID YAMILA Administration Polyethylene Glycol 17 gm 11/07/20 09:00 11/10/20 10:20 Polyethylene Glycol 3350 17 Gm Packet PO Not Given DAILY YAMILA Quetiapine Fumarate 25 mg 11/05/20 21:00 11/09/20 19:47 Quetiapine Fumarate 25 Mg Tab PO 25 mg HS YAMILA Administration Saccharomyces Boulardii 250 mg 11/06/20 09:00 11/10/20 08:55 Saccharomyces Boulardii 250 Mg Cap PO 250 mg DAILY YAMILA Administration Thiamine HCl 100 mg 11/07/20 09:00 11/10/20 08:55 Thiamine 100 Mg Tab PO 100 mg DAILY YAMILA Administration Tramadol HCl 50 mg 11/05/20 17:22 11/09/20 17:07 Tramadol Hcl 50 Mg Tab PO 50 mg Q6H PRN Administration Severe Pain (7-10) Hospitalist Exam Vitals: Vital Signs (12 hours) Temp Pulse Resp BP BP Pulse Ox 11/10/20 09:00 98.6 F 83 22 H 152/68 H 100 11/10/20 08:55 152/68 H Weight Admit Weight 134 lb 9.6 oz Weight 134 lb 9.6 oz Eye: PERRL, anicteric sclera Heart: RRR, no murmur, no gallops, no rubs, normal peripheral pulses Respiratory: CTAB, no wheezes, no rales, no ronchi, normal chest expansion Gastrointestinal: soft, non-tender, non-distended, normal bowel sounds, no pal pable masses, no hepatomegaly Extremities: no cyanosis, no edema (+ right AKA, stump is dressed) Hosp A/P (1) Status post above-knee amputation Code(s): Z89.619 - ACQUIRED ABSENCE OF UNSPECIFIED LEG ABOVE KNEE Status: Acute Qualifiers: Laterality: right Qualified Code(s): Z89.611 - Acquired absence of right leg above knee (2) AMS (altered mental status) Code(s): R41.82 - ALTERED MENTAL STATUS, UNSPECIFIED Status: Acute (3) Hyponatremia Code(s): E87.1 - HYPO-OSMOLALITY AND HYPONATREMIA Status: Acute (4) Alcoholism Code(s): F10.20 - ALCOHOL DEPENDENCE, UNCOMPLICATED Status: Chronic (5) CAD (coronary artery disease) Code(s): I25.10 - ATHSCL HEART DISEASE OF [place] CORONARY ARTERY W/O ANG PCTRS Status: Chronic Qualifiers: Coronary Disease-Associated Artery/Lesion type: [place] artery [place] vs. 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
[2020-11-10] MEDS: Lorazepam 2 MG/ML VIAL SLOW IVP PRN (17:22)
[2020-11-10] MEDS: Atorvastatin Calcium 40 MG TAB PO SCH (21:40)
[2020-11-11] MEDS: traMADol HCl 50 MG TAB PO PRN (02:18)
[2020-11-11] MEDS: Amino Acids 4.25 %/Dextrose 5% 1,000 ML IV SCH ×2 (06:12→20:39)
--- NOTE | 2020-11-11 08:58 | PDOC.GSPN ---
Surgery Progress Note: Subj - Subjective Narrative: Patient is very sleepy. The nurse has not given him anything that is sedating. He did get some tramadol last night and he has Seroquel ordered nightly. According to the day nurse he is not really eating at all but they are able to get him to swallow his meds. He is on PPN. He is not answering any questions for me. Stump looks good and appears to be healing normally. No swelling or bruising. Minimal tenderness when redressing the stump. Labs yesterday were okay. Assessment/plan: Mental status remains depressed. I have discontinued all potentially sedating medications although he has not really been receiving many. I am going to ask palliative care to see him. I am very concerned that he is not eating. We could place a PEG tube but I am concerned that he might pull it out as he was previously pulling out from his IVs. In addition I am not sure that this would improve his quality of life as his mental status does not seem to be improving at all. Because of his continued mental decline he may be most appropriate for hospice. He does seem to be in less pain undergoing his above- knee amputation and this is healing well. Continue PPN and encourage oral intake for now. Doing well from a surgical standpoint but overall prognosis is very poor. Surgery Progress Note: Obj - Vital signs Vital signs: Vital Signs - Most Recent Temp Pulse Resp BP Pulse Ox 97.2 F L 85 18 140/71 94 L 11/11/20 08:00 11/11/20 08:00 11/11/20 08:00 11/11/20 08:00 11/11/20 08:00 Surgery Progress Note: Results - Labs Result Diagrams: 11/10/20 06:36 11/10/20 06:36
[2020-11-11] MEDS: Mometasone 200 MCG/Formoterol 5 MCG 120 PUFF INHALER INH SCH ×2 (09:23→19:09)
[2020-11-11 09:56] LABS: #Eosinphils 0.3 thou/uL (0.0-0.7); #Lymphocytes 1.7 thou/uL (1.20-3.40); #Monocytes 0.6 thou/uL (0.11-0.59); #Neutrophils 7.3 thou/uL (1.40-6.50); %Basophils 0.2 % (0.0-1.0); %Lymphocytes 17.2 % (21.0-51.0); %Monocytes 5.9 % (0.0-10.0); %Neutrophils 73.7 % (42.0-75.0); Hemoglobin 10.3 g/dL (14.0-18.0); Mean Corpuscular HGB CONC 33.3 g/dL (32.0-36.0); Mean Corpuscular Hemoglobin 30.9 pg (27.0-31.0); Mean Corpuscular Volume 92.6 fL (78.0-98.0); Mean Platelet Volume 8.7 fL (7.4-10.4); Platelet Count 317 thou/uL (130-400); RBC Distribution Width 14.3 % (11.5-14.5); Red Blood Cell (RBC) Count 3.34 mill/uL (4.70-6.10)
[2020-11-11 10:20] LABS: Anion Gap 13 mmol/L (10-20); BUN (Urea Nitrogen) 25 mg/dL (8.4-25.7); Calc. Creatinine Clearance 83 mL/min (70-130); Calcium 10.1 mg/dL (7.8-10.44); Carbon Dioxide 18 mmol/L (23-31); Chloride 103 mmol/L (98-107); Glucose 120 mg/dL (80-115); Sodium 130 mmol/L (136-145)
[2020-11-11] MEDS: Ferrous Gluconate 324 MG TAB PO SCH (10:51)
[2020-11-11] MEDS: Thiamine 100 MG TAB PO SCH (10:51)
[2020-11-11] MEDS: Aspirin Chewable 81 MG TAB PO SCH (10:51)
[2020-11-11] MEDS: Saccharomyces boulardii 250 MG CAP PO SCH (10:51)
[2020-11-11] MEDS: Cholecalciferol 1,000 UNITS (25 MCG) TAB PO SCH (10:52)
[2020-11-11] MEDS: Bupropion 150 MG SR TAB PO SCH (10:52)
[2020-11-11] MEDS: Metoprolol Tartrate 100 MG TAB PO SCH ×2 (10:52→20:41)
[2020-11-11] MEDS: Lisinopril 10 MG TAB PO SCH (10:52)
[2020-11-11] MEDS: Polyethylene Glycol 3350 17 GM Packet PO SCH (10:53)
--- NOTE | 2020-11-11 17:21 | PDOC.HOSPP ---
- Subjective Encounter Date: 11/11/20 Encounter Time: 17:19 Subjective: Mr. Castellanos was seen today in follow-up post right AKA. His is at the bedside. He is a little less confused. His is feeding him, and he is eating a bit more. - Objective Vital Signs & Weight: Vital Signs (12 hours) Temp Pulse Resp BP BP Pulse Ox 11/11/20 10:52 152/68 H 11/11/20 09:23 50 L 20 100 11/11/20 08:00 97.2 F L 85 18 140/71 94 L Weight Admit Weight 134 lb 9.6 oz Weight 134 lb 9.6 oz I&O: 11/10/20 11/11/20 11/12/20 06:59 06:59 06:59 Intake Total 1236 260 Output Total 1650 1150 450 Balance -414 -1150 -190 Result Diagrams: 11/11/20 09:32 11/11/20 09:32 Hospitalist ROS - Medication Medications: Active Medications Generic Name Dose Route Start Last Admin Trade Name Freq PRN Reason Stop Dose Admin Acetaminophen 650 mg 11/05/20 17:21 11/09/20 17:00 Acetaminophen 325 Mg Tab PO 650 mg Q4H PRN Administration Moderate Pain (4-6) Aspirin 81 mg 11/06/20 09:00 11/11/20 10:51 Aspirin Chewable 81 Mg Tab PO 81 mg DAILY YAMILA Administration Atorvastatin Calcium 40 mg 11/05/20 21:00 11/10/20 21:40 Atorvastatin Calcium 40 Mg Tab PO 40 mg HS YAMILA Administration Bisacodyl 10 mg 11/06/20 13:18 11/11/20 10:52 Bisacodyl 5 Mg Tab PO 10 mg DAILY PRN Administration Constipation Bupropion HCl 150 mg 11/06/20 09:00 11/11/20 10:52 Bupropion 150 Mg Sr Tab PO 150 mg DAILY YAMILA Administration Cholecalciferol 2,000 units 11/06/20 09:00 11/11/20 10:52 Cholecalciferol 1,000 Units (25 Mcg) Tab PO 2,000 units DAILY YAMILA Administration Ferrous Gluconate 324 mg 11/06/20 08:00 11/11/20 10:51 Ferrous Gluconate 324 Mg Tab PO 324 mg QAM-WM YAMILA Administration Amino Acids/Dextrose 1,000 mls @ 83.333 mls/hr 11/07/20 17:15 11/11/20 06:12 Clinimix 4.25/5 IV 1,000 mls INF YAMILA Administration Lisinopril 10 mg 11/06/20 09:00 11/11/20 10:52 Lisinopril 10 Mg Tab PO 10 mg DAILY YAMILA Administration Metoprolol Tartrate 100 mg 11/05/20 21:00 11/11/20 10:52 Metoprolol Tartrate 100 Mg Tab PO 100 mg BID YAMILA Administration Mometasone Furoate/Formoterol Fumar 1 puff 11/07/20 18:30 11/11/20 09:23 Mometasone 200 Mcg/Formoterol 5 Mcg 120 Puff Inhaler INH 1 puff BID-RT YAMILA Administration Pantoprazole Sodium 40 mg 11/06/20 21:00 11/11/20 10:51 Pantoprazole 40 Mg Tab PO 40 mg BID YAMILA Administration Polyethylene Glycol 17 gm 11/07/20 09:00 11/11/20 10:53 Polyethylene Glycol 3350 17 Gm Packet PO Not Given DAILY YAMILA Saccharomyces Boulardii 250 mg 11/06/20 09:00 11/11/20 10:51 Saccharomyces Boulardii 250 Mg Cap PO 250 mg DAILY YAMILA Administration Thiamine HCl 100 mg 11/07/20 09:00 11/11/20 10:51 Thiamine 100 Mg Tab PO 100 mg DAILY YAMILA Administration Hospitalist Exam Vitals: Vital Signs (12 hours) Temp Pulse Resp BP BP Pulse Ox 11/11/20 10:52 152/68 H 11/11/20 09:23 50 L 20 100 11/11/20 08:00 97.2 F L 85 18 140/71 94 L Weight Admit Weight 134 lb 9.6 oz Weight 134 lb 9.6 oz General Appearance: NAD, awake alert Eye: PERRL, anicteric sclera Heart: RRR, no murmur, no gallops, no rubs, normal peripheral pulses Respiratory: CTAB, no wheezes, no rales, no ronchi, normal chest expansion, no tachypnea Gastrointestinal: soft, non-tender, non-distended, normal bowel sounds Extremities: no cyanosis (right AKA, dressed) Hosp A/P (1) Status post above-knee amputation Code(s): Z89.619 - ACQUIRED ABSENCE OF UNSPECIFIED LEG ABOVE KNEE Status: Acute Qualifiers: Laterality: right Qualified Code(s): Z89.611 - Acquired absence of right leg above knee (2) AMS (altered mental status) Code(s): R41.82 - ALTERED MENTAL STATUS, UNSPECIFIED Status: Acute (3) Hyponatremia Code(s): E87.1 - HYPO-OSMOLALITY AND HYPONATREMIA Status: Acute (4) Alcoholism Code(s): F10.20 - ALCOHOL DEPENDENCE, UNCOMPLICATED Status: Chronic (5) CAD (coronary artery disease) Code(s): I25.10 - ATHSCL HEART DISEASE OF [place] CORONARY ARTERY W/O ANG PCTRS Status: Chronic Qualifiers: Coronary Disease-Associated Artery/Lesion type: [place] artery [place] vs. transplanted heart: [place] heart Associated angina: without angina Qualified Code(s): I25.10 - Atherosclerotic heart disease of [place] coronary artery with out angina pectoris (6) COPD (chronic obstructive pulmonary disease) Status: Chronic - Plan * Metabolic encephalopathy- resolved * Alcoholism- continue Thiamine and folic acid * COPD- stable- continue Dulera, and Duonebs as needed * Hyponatremia- improved * CAD- clinically stable * s/p Right AKA- continue as per General Surgery * Plan discussed with his . She plans to take him home with home hospice. She says she does not feel he will participate with PT. She notes a gradual decline over time.
[2020-11-11] MEDS: Atorvastatin Calcium 40 MG TAB PO SCH (20:42)
[2020-11-12 07:32] VITALS: TEMP 98.6
[2020-11-12] MEDS: Mometasone 200 MCG/Formoterol 5 MCG 120 PUFF INHALER INH SCH (07:49)
[2020-11-12] MEDS: Ferrous Gluconate 324 MG TAB PO SCH (08:00)
--- NOTE | 2020-11-12 09:14 | PDOC.HOSPP ---
- Subjective Encounter Date: 11/12/20 Encounter Time: 09:08 Subjective: Mr. Castellanos was seen today in follow-up of metabolic encephalopathy post surgery. He is awake but did not reply. - Objective Vital Signs & Weight: Vital Signs (12 hours) Temp Pulse Resp BP Pulse Ox 11/12/20 07:49 84 16 100 11/12/20 07:31 98.6 F 89 20 114/66 98 Weight Admit Weight 134 lb 9.6 oz Weight 134 lb 9.6 oz I&O: 11/11/20 11/12/20 11/13/20 06:59 06:59 06:59 Intake Total 260 Output Total 9919 6005 Balance -4790 -3625 Result Diagrams: 11/11/20 09:32 11/11/20 09:32 Hospitalist ROS - Medication Medications: Active Medications Generic Name Dose Route Start Last Admin Trade Name Freq PRN Reason Stop Dose Admin Acetaminophen 650 mg 11/05/20 17:21 11/09/20 17:00 Acetaminophen 325 Mg Tab PO 650 mg Q4H PRN Administration Moderate Pain (4-6) Aspirin 81 mg 11/06/20 09:00 11/11/20 10:51 Aspirin Chewable 81 Mg Tab PO 81 mg DAILY YAMILA Administration Atorvastatin Calcium 40 mg 11/05/20 21:00 11/11/20 20:42 Atorvastatin Calcium 40 Mg Tab PO 40 mg HS YAMILA Administration Bisacodyl 10 mg 11/06/20 13:18 11/11/20 10:52 Bisacodyl 5 Mg Tab PO 10 mg DAILY PRN Administration Constipation Bupropion HCl 150 mg 11/06/20 09:00 11/11/20 10:52 Bupropion 150 Mg Sr Tab PO 150 mg DAILY YAMILA Administration Cholecalciferol 2,000 units 11/06/20 09:00 11/11/20 10:52 Cholecalciferol 1,000 Units (25 Mcg) Tab PO 2,000 units DAILY YAMILA Administration Ferrous Gluconate 324 mg 11/06/20 08:00 11/11/20 10:51 Ferrous Gluconate 324 Mg Tab PO 324 mg QAM-WM YAMILA Administration Amino Acids/Dextrose 1,000 mls @ 83.333 mls/hr 11/07/20 17:15 11/11/20 20:39 Clinimix 4.25/5 IV 1,000 mls INF YAMILA Administration Lisinopril 10 mg 11/06/20 09:00 11/11/20 10:52 Lisinopril 10 Mg Tab PO 10 mg DAILY YAMILA Administration Metoprolol Tartrate 100 mg 11/05/20 21:00 11/11/20 20:41 Metoprolol Tartrate 100 Mg Tab PO 100 mg BID YAMILA Administration Mometasone Furoate/Formoterol Fumar 1 puff 11/07/20 18:30 11/12/20 07:49 Mometasone 200 Mcg/Formoterol 5 Mcg 120 Puff Inhaler INH 1 puff BID-RT YAMILA Administration Pantoprazole Sodium 40 mg 11/06/20 21:00 11/11/20 20:42 Pantoprazole 40 Mg Tab PO Not Given BID YAMILA Polyethylene Glycol 17 gm 11/07/20 09:00 11/11/20 10:53 Polyethylene Glycol 3350 17 Gm Packet PO Not Given DAILY YAMILA Saccharomyces Boulardii 250 mg 11/06/20 09:00 11/11/20 10:51 Saccharomyces Boulardii 250 Mg Cap PO 250 mg DAILY YAMILA Administration Thiamine HCl 100 mg 11/07/20 09:00 11/11/20 10:51 Thiamine 100 Mg Tab PO 100 mg DAILY YAMILA Administration Hospitalist Exam Vitals: Vital Signs (12 hours) Temp Pulse Resp BP Pulse Ox 11/12/20 07:49 84 16 100 11/12/20 07:31 98.6 F 89 20 114/66 98 Weight Admit Weight 134 lb 9.6 oz Weight 134 lb 9.6 oz Eye: PERRL, anicteric sclera Heart: RRR, no murmur, no gallops, no rubs, normal peripheral pulses Respiratory: CTAB, no wheezes, no rales, no ronchi, normal chest expansion, no tachypnea Gastrointestinal: soft, non-distended, normal bowel sounds Extremities: no cyanosis, 1+ LE edema Hosp A/P (1) Status post above-knee amputation Code(s): Z89.619 - ACQUIRED ABSENCE OF UNSPECIFIED LEG ABOVE KNEE Status: Acute Qualifiers: Laterality: right Qualified Code(s): Z89.611 - Acquired absence of right leg above knee (2) AMS (altered mental status) Code(s): R41.82 - ALTERED MENTAL STATUS, UNSPECIFIED Status: Acute (3) Hyponatremia Code(s): E87.1 - HYPO-OSMOLALITY AND HYPONATREMIA Status: Acute (4) Alcoholism Code(s): F10.20 - ALCOHOL DEPENDENCE, UNCOMPLICATED Status: Chronic (5) CAD (coronary artery disease) Code(s): I25.10 - ATHSCL HEART DISEASE OF [place] CORONARY ARTERY W/O ANG PCTRS Status: Chronic Qualifiers: Coronary Disease-Associated Artery/Lesion type: [place] artery [place] vs. transplanted heart: [place] heart Associated angina: without angina Qualified Code(s): I25.10 - Atherosclerotic heart disease of [place] coronary artery without angina pectoris (6) COPD (chronic obstructive pulmonary disease) Status: Chronic - Plan * Metabolic encephalopathy- resolved * Alcoholism- continue Thiamine and folic acid * COPD- stable- continue Dulera, and Duonebs as needed * Plan is for him to go home with Hospice today
--- NOTE | 2020-11-12 11:15 | PDOC.GSPN ---
Surgery Progress Note: Subj - Subjective Narrative: Patient is more alert and conversive today but hallucinating. States, "Will somebody do something about that seth?", pointing to an empty wall. He denies pain. Stump meatcutter is in place and appropriately sized. Not tight or constricting. Vitals are good. Assessment/plan: Doing well from a surgical standpoint but with continued cognitive decline. His has decided to take him home on hospice care. The stump is healing appropriately and I do not have any concerns about viability at this point. If the stump looks good the hospice nurses can remove the laurie in 2 weeks time, but if there are any concerns about the appearance he should come back to my clinic in 2 weeks for a recheck and staple removal. Surgery Progress Note: Obj - Vital signs Vital signs: Vital Signs - Most Recent Temp Pulse Resp BP Pulse Ox 98.6 F 84 16 114/66 100 11/12/20 07:31 11/12/20 07:49 11/12/20 07:49 11/12/20 07:31 11/12/20 07:49 Surgery Progress Note: Results - Labs Result Diagrams: 11/11/20 09:32 11/11/20 09:32
--- NOTE | 2020-11-12 12:00 | PQF ---
CLINICAL DOCUMENTATION CLARIFICATION FORM: Dear Dr. Almazan: Date / Time: 11/12/20 1057 Please exercise your independent, professional judgment in responding to the clarification form. Clinical indicators are provided on the bottom of this form for your review Please check appropriate box(es): [ X ] Protein Calorie Malnutrition: [ ] Mild [ X ] Moderate [ ] Severe [ ] Other Malnutrition (please specify) [ ] Underweight without malnutrition [ ] Normal weight [ ] Other diagnosis [ ] Unable to determine In addition, please specify: Present on Admission (POA): [X ] Yes [ ] No [ ] Unable to determine Physician Signature: Date/Time: For continuity of documentation, please document condition throughout progress notes and discharge summary. Thank You. To be completed by CDI/Coding staff for physician review: Present Clinical Indicators - Signs / Symptoms / Labs Results and Location in Medical Record [ ] [ x ] BMI of 18.8 Dietitian Consult 11/07/20 Two or More of the Following ASPEN Criteria: [ x] Unintentional Insufficient Energy Intake reports pt not eating well x 3wks w/ unknown wt loss- Dietitian consult 11/08/20 [ ] Hx:dysphagia; Appetite changes, swallowing impaired -refusing to eat @ this time Adult Assessment 11/10/20 [ ] [ ] [ ] [ x ] Diminished Handgrip Strength Total assist feeding Adult Assessment 11/06/[address] Almazan 11/12/20 Present Risk Factors Results and Location in Medical Record [x ] Change in appetite He is on PPN. "I am very concerned he is not eating"I am going to ask for palliative care. we could place a peg tube but I am concerned he will pull it out as he was pulling out IVs [x ] Inability to consume adequate caloric intake Poor appetite<25%,dysphagia Dr. Chapa 11/06/20 [x ] Chronic illness cancer, cirrhosis AMS, acute on chronic encephalopathy,COPD, chronic alcoholism Dr. Chapa 11/06/20 [ ] [ ] [ ] Present Treatments Results and Location in Medical Record [x ] Dietary consult Physician Orders 11/07/20 [x ] Nutritional supplements Enlive Ensure Diet Orders 11/06/20 [x ] TPN / tube feedings IV Clinimix MAR 11/07/20 [x ] Assistance with feeding Total assist feeding Adult Assessment 11/06/20 [ ] CDS/Elevator Installer Apprentice Signature: Milly Lloyd Phone #: [phone] Date/Time: 11/12/20 1052 Moderate Malnutrition (in acute illness) Energy Intake: <75% of estimated energy requirement for > 7 days Weight Loss: 1-2%/1 week; 5%/ 1 month; 7.5%/3 months Other: mild body fat loss; mild muscle mass loss; mild fluid accumulation; Severe Malnutrition (in acute illness) Energy Intake: = 50% of estimated energy requirement for = 5 days Weight Loss: >2%/1 week; >5%/1 month; >7.5%/3 months Other: moderate body fat loss; moderate muscle mass loss; moderate- severe fluid accumulation; 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 Moderate Malnutrition (in chronic illness) Energy Intake: <75% of estimated energy requirement for =1 month Weight Loss: 5%/1 month; 7.5%/3 months; 10%/6 months; 20%/1 year Other: mild body fat loss; mild muscle mass loss; mild fluid accumulation Severe Malnutrition (in chronic illness) Energy Intake: =75% of estimated energy requirement for =1 month Weight Loss: >5%/1 month; >7.5%/3 months; >10%/6 months; >20%/1 year Other: severe body fat loss; severe muscle mass loss; severe fluid accumulation; 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
--- NOTE | 2020-11-12 12:16 | PDOC.FMACP ---
Advance Care Planning - Problem (1) Palliative care encounter Status: Acute Code(s): Z51.5 - ENCOUNTER FOR PALLIATIVE CARE (2) Acute metabolic encephalopathy Status: Acute Code(s): G93.41 - METABOLIC ENCEPHALOPATHY (3) Alcoholism Status: Chronic Code(s): F10.20 - ALCOHOL DEPENDENCE, UNCOMPLICATED (4) COPD (chronic obstructive pulmonary disease) Status: Chronic (5) PAD (peripheral artery disease) Status: Chronic Code(s): I73.9 - PERIPHERAL VASCULAR DISEASE, UNSPECIFIED - Note Participants: patient, family, palliative care Summary: Palliative care addressed Advanced Care Planning, patient primary contact. The diagnosis, prognosis and goals of care were discussed. Appropriate forms and documentation to accomplish the goals of care were discussed. All questions were answered. Discussion between SNF and hospice, has elected to transition to hospice care. Hospice consult placed Hospice and to complete OOHDNAR at admission to hospice services [facility] has communicated with Dr Almazan and Dr Chapa Time Spent (mins): 15
[2020-11-12] MEDS: Aspirin Chewable 81 MG TAB PO SCH (13:06)
[2020-11-12] MEDS: Lisinopril 10 MG TAB PO SCH (13:06)
[2020-11-12] MEDS: Bupropion 150 MG SR TAB PO SCH (13:06)
[2020-11-12] MEDS: Cholecalciferol 1,000 UNITS (25 MCG) TAB PO SCH (13:06)
[2020-11-12 13:07] VITALS: BP 152/68
[2020-11-12] MEDS: Saccharomyces boulardii 250 MG CAP PO SCH (13:07)
[2020-11-12] MEDS: Polyethylene Glycol 3350 17 GM Packet PO SCH (13:07)
[2020-11-12] MEDS: Metoprolol Tartrate 100 MG TAB PO SCH (13:07)
[2020-11-12] MEDS: Thiamine 100 MG TAB PO SCH (13:07)
--- NOTE | 2020-11-12 18:55 | PDOC.DS.DS ---
Provider Date of Admission: 11/05/20 11:27 Date of Discharge: 11/12/20 Admitting Provider: Ofelia Chapa MD Primary Care Physician: Tarun King MD Course Hospital Course: Mr. Castellanos is a 65-year-old gentleman that has a history of severe peripheral vascular disease. He also has a history of coronary artery disease and chronic alcoholism as well as hypertension. He was admitted by the surgery service due to to the need for a right [id number] amputation. He had progressive ischemic changes in the right leg. He had had a previous right below the knee amputation. The hospitalist service was consulted for medical management. He was found to be confused and there was concern for encephalopathy. However after discussion with the patient's daughter as well as the patient's it appears as the confusion had predated his hospital stay and had he had had progressive confusion over the last 4 months likely as a result of his chronic persistent alcohol lives him. The was concerned that the patient would not follow physical therapy recommendations at the time of discharge and due to his chronic persistent confusion and previous comorbid conditions she made the decision to take him home on hospice instead of pursuing inpatient rehabilitation. Once these arrangements were made the patient was able to be discharged home. Lab Results: 11/11/20 09:32 11/11/20 09:32 Abnormal Lab Results - Last 48 hrs 11/11/20 09:32: Sodium 130 L, Carbon Dioxide 18 L 11/11/20 09:32: RBC 3.34 L, Hgb 10.3 L, Hct 30.9 L, Lymphocytes % 17.2 L, Neutrophils # 7.3 H, Monocytes # 0.6 H Vitals: Vital Signs (12 hours) Temp Pulse Resp BP BP Pulse Ox 11/12/20 13:06 152/68 H 11/12/20 07:49 84 16 100 11/12/20 07:31 98.6 F 89 20 114/66 98 Weight Admit Weight 134 lb 9.6 oz Weight 134 lb 9.6 oz Physical Exam: The patient was seen and examined on the day of discharge. Problem (1) Status post above-knee amputation Code(s): Z89.619 - ACQUIRED ABSENCE OF UNSPECIFIED LEG ABOVE KNEE Status: Acute Qualifiers: Laterality: right Qualified Code(s): Z89.611 - Acquired absence of right leg above knee (2) AMS (altered mental status) Code(s): R41.82 - ALTERED MENTAL STATUS, UNSPECIFIED Status: Acute (3) Hyponatremia Code(s): E87.1 - HYPO-OSMOLALITY AND HYPONATREMIA Status: Acute (4) Alcoholism Code(s): F10.20 - ALCOHOL DEPENDENCE, UNCOMPLICATED Status: Chronic (5) CAD (coronary artery disease) Code(s): I25.10 - ATHSCL HEART DISEASE OF [place] CORONARY ARTERY W/O ANG PCTRS Status: Chronic Qualifiers: Coronary Disease-Associated Artery/Lesion type: [place] artery [place] vs. transplanted heart: [place] heart Associated angina: without angina Qualified Code(s): I25.10 - Atherosclerotic heart disease of [place] coronary artery without angina pectoris (6) COPD (chronic obstructive pulmonary disease) Status: Chronic Plan Home Medications: Medication Instructions Recorded Confirmed Type Aspirin Chewable [Aspirin Chewable 81 mg PO DAILY 10/16/20 11/04/20 History Tablet] Cholecalciferol (Vitamin D3) 2,000 unit PO DAILY 10/16/20 11/04/20 History [Vitamin D] Lisinopril [Zestril] 10 mg PO DAILY 10/16/20 11/04/20 History Metoprolol Tartrate 100 mg PO BID 10/16/20 11/04/20 History buPROPion HCl [buPROPion HCl ER] 150 mg PO DAILY 10/16/20 11/04/20 History Atorvastatin Calcium [Lipitor] 40 mg PO HS tab 10/25/20 11/04/20 Rx Ferrous Gluconate [Fergon] 324 mg PO QAM-WM tab 10/25/20 11/04/20 Rx Mometasone/Formoterol 200/5 1 puff INH BID-RT inh 10/25/20 11/04/20 Rx [Dulera 200 Mcg/5 Mcg Inhaler] Polyethylene Glycol 3350 [Miralax] 17 gm PO DAILY pk 10/25/20 11/04/20 Rx QUEtiapine Fumarate [SEROquel] 25 mg PO HS tab 10/25/20 11/04/20 Rx Saccharomyces boulardii [Florastor] 250 mg PO DAILY cap 10/25/20 11/04/20 Rx Thiamine 100 mg PO DAILY tab 10/25/20 11/04/20 Rx traMADol HCl [Tramadol HCl] 50 mg PO Q6HR PRN 10/26/20 11/04/20 History Acetaminophen [Acetaminophen ER] 650 mg PO Q4H PRN 11/04/20 11/04/20 History Amino Acids 4.25 %/Dextrose 5% 2,000 ml IV ASDIR 11/04/20 11/04/20 History [Clinimix 4.25%-5%] Artificial Tears [Tears Naturale 1 - 2 drop EA EYE ASDIR PRN 11/04/20 11/04/20 History Free] Benzocaine/Menthol [Sore Throat 1 jaime PO Q2H PRN 11/04/20 11/04/20 History Lozenge] Bisacodyl [Dulcolax] 10 mg PO DAILY PRN 11/04/20 11/04/20 History Calcium Carbonate [Tums] 1,000 mg PO QID PRN 11/04/20 11/04/20 History Diazepam [Valium] 2 mg PO BID PRN 11/04/20 11/04/20 History Ipratropium/Albuterol Sulfate 3 ml NEB QID PRN 11/04/20 11/04/20 History [DuoNeb] Mometasone/Formoterol 100/5 1 puff INH BID-RT 11/04/20 11/04/20 History [Dulera 100 Mcg/5 Mcg Inhaler] Pantoprazole Sodium 40 mg PO DAILY 11/04/20 11/04/20 History Sodium Chloride [[place] Nasal [place] 2 drop EA NARE QID PRN 11/04/20 11/04/20 History 0.65%] Allergies: Penicillins Allergy (Intermediate, Verified 11/05/20 16:58) Hives Sulfa (Sulfonamide Antibiotics) Allergy (Verified 11/05/20 16:58) sulfamethoxazole [From Bactrim] Allergy (Verified 11/04/20 08:57) trimethoprim [From Bactrim] Adverse Reaction (Verified 11/04/20 08:57) Nausea Nausea and vomitting Discharge Instructions:: Wear stump pharmacy operations specialist for comfort and as tolerated. generation technician to remove laurie from stump in two weeks: 11/26/2020. Activity:: Activity as Tolerated Nourishment:: Regular Diet Referrals: Ofelia Chapa MD [Active] - Tarun King [Primary Care Provider] - Disposition: HOSPICE-HOME Quality CORE MEASURES:: N/A
--- NOTE | 2020-11-14 02:48 | PQF ---
Dear : Momo Almazan Date 11/14/2020 Please exercise your independent, professional judgment in responding to the clarification form. Clinical indicators are provided on the bottom of this form for your review Can you please further clarify the diagnosis of the Patient? Please check appropriate box(es): [ ] Current ischemia is due complication of the stump (amputation) [ X ] Current ischemia is due to progression of PVD disease [ ] Other diagnosis, please specify: [ ] Unable to determine Physician Signature: Date/Time: For continuity of documentation, please document condition throughout progress notes and discharge summary. Thank You. To be completed by CDI/Coding staff for physician review: Present Clinical Indicators - Signs / Symptoms / Labs Results and Location in Medical Record [ x ] Severe peripheral disease with ischemic below the knee amputation OP report pg.1 [ x ] Develop hematoma of the stump OP report pg.1 [ x ] He also develop some purulent drainage from the stump incision OP report pg.1 [ x ] Developing gangrene of his BKA General surgery PN pg.1 [ x ] Progressive ischemic changes in the right leg DS 11/12 Present Risk Factors Results and Location in Medical Record [ x ] Hx of wet gangrene OP report pg.1 [ x ] DM with PVD Consult pg.1 [ x ] Chronic alcoholism Consult pg.1 [ x ] 65 years old Consult pg.1 [ x ] s/p BKA Consult pg.2 [ x ] Smoker Consult 11/06 Present Treatments Results and Location in Medical Record [ x ] Right above the knee amputation OP report pg.1 [ x ] IV Fluids MAR [ x ] Levaquin 500mg IV MAR CDS/Screenplay Writer Signature: Sean Dean Phone #: [phone] Date 11/14/2020 This is a permanent part of the Medical Record [facility]
== END 2020-11-12 13:00 | disposition hospice, home (50) | DRG 239 ==
LOC: SURG A 11-05 11:27 → ONC 11-05 16:31
PROVIDERS: ADMIT Surgery; ATTEND Internal Medicine
PROC: 0Y6C0Z1 Detachment at Right Upper Leg, High, Open Approach (ICD-10-PCS; principal; 2020-11-06)
DX: E11.52 Type 2 diabetes mellitus with diabetic peripheral angiopathy with gangrene (principal); G93.41 Metabolic encephalopathy; I70.261 Atherosclerosis of native arteries of extremities with gangrene, right leg; E87.1 Hypo-osmolality and hyponatremia; F10.280 Alcohol dependence with alcohol-induced anxiety disorder; E44.0 Moderate protein-calorie malnutrition; Z68.1 Body mass index [BMI] 19.9 or less, adult; Z20.822 Contact with and (suspected) exposure to COVID-19; Z51.5 Encounter for palliative care; T87.53 Necrosis of amputation stump, right lower extremity; I25.10 Atherosclerotic heart disease of native coronary artery without angina pectoris; J44.9 Chronic obstructive pulmonary disease, unspecified; F17.210 Nicotine dependence, cigarettes, uncomplicated; Y83.8 Other surgical procedures as the cause of abnormal reaction of the patient, or of later complication, without mention of misadventure at the time of the procedure; K21.9 Gastro-esophageal reflux disease without esophagitis; K70.30 Alcoholic cirrhosis of liver without ascites; I10 Essential (primary) hypertension; Z88.0 Allergy status to penicillin; Z88.1 Allergy status to other antibiotic agents; Z88.2 Allergy status to sulfonamides; Z79.82 Long term (current) use of aspirin; Z79.899 Other long term (current) drug therapy; Z95.5 Presence of coronary angioplasty implant and graft; Z89.511 Acquired absence of right leg below knee; Z79.51 Long term (current) use of inhaled steroids
CPT/HCPCS: 36415; 80048; 80053; 83735; 83930; 83935; 84100; 84134; 84300; 85025; 88307; 93005; 93010; J1956; J2060; J2405; J2704; J3010; J3490; L8460